=== PATIENT | female | born 1960 | race Caucasian/White ===

== ENCOUNTER 2018-09-11 14:43 | Emergency (ER) | payer OTHER, SELFPAY ==
[2018-09-11 14:43] VITALS: BP 147/92; PULSE 82; RESP 16; TEMP 37.2; O2SAT 99; BMI 34.2
--- NOTE | 2018-09-11 15:28 | PC.NURSE ---
moving all extremities, skin warm dry pink.
--- NOTE | 2018-09-11 15:49 | PC.NURSE ---
Pt states that she has numbness, anterior from mid breast to mid calf. Started in low pelvis and radiated outward. Anterior only. States it feels ''. TOVAR equally well. States that she has had increased unsteady gait but no falls. Denies trauma, back pain or injury. Denies CP/SOB. Of note, pt has 3 year old son with her. He is fussy, runs out of room, grabbing at wires, paper etc. Very playful and engaging child. Mother appears frustrated and requesting that a geriatric social work professor take care of child so she can be seen. Informed that there was no children's program coordinator services in the ED at present. She has a friend coming from [place] but he won't arrive until later tonight.
--- NOTE | 2018-09-11 15:52 | PC.NURSE ---
found pt changing her sons diaper at the waiting area, another pt made a comment, we have a bathroom to do that. 3 year old, running and very active, not listening to his mother, throwing sets of keys, toys, crying. 1 year old grabbing other pt. I have asked mother, if there is anyone to care for her child states, Im the only one he has, my friend is not gonna be here till later patience, pt inquiring about social work faculty member to watch her child , during visits to er
--- NOTE | 2018-09-11 16:13 | DI.CT.S_ITS ---
PROCEDURE: CT THORACIC SPINE WO CON INDICATIONS: midline back pain, neurologic symptoms, no specific trauma TECHNIQUE: Noncontrast 3 mm thick sections acquired through the region of interest in the thoracic spine. Sagittal and coronal reformats were then constructed. For radiation dose reduction, the following was used: automated exposure control. COMPARISON: None. FINDINGS: Image quality: Diagnostic. Bones: The cervicothoracic junction is well-visualized in the alignment through this region is well-maintained. The vertebral body heights are well-maintained throughout the thoracic spine without evidence to suggest an acute compression fracture. No displaced fractures or dislocations are identified. There is mild to moderate dextroconvex curvature of the lower thoracic spine. No spondylolisthesis is identified. Moderate multilevel degenerative changes of the thoracic spine are present demonstrating multilevel disc height loss, anterior disc osteophyte complexes, and facet arthrosis. There also are areas of degenerative change involving multiple costovertebral junctions, best appreciated through the mid thoracic region. No suspicious osseous lesions are identified. Soft tissues: No paravertebral masses or hematomas. Visualized posteromedial lungs appear clear. There appear to be a few calcified gallstones within the gallbladder. Postoperative changes of the stomach are present, likely related to prior gastric bypass surgery. Coronary and aortic atherosclerosis is present. Mild bullous changes along the posterior aspect of the right lower lobe is incidentally noted, which is of doubtful clinical significance. The heart is borderline enlarged. IMPRESSION: 1. No acute fractures of the thoracic spine. 2. Moderate multilevel degenerative changes of the thoracic spine. 3. Cholelithiasis. Dictated by: Isidro Eaton M.D. on 09/11/2018 at 15:49 Approved by: Isidro Eaton M.D. on 09/11/2018 at 15:53
--- NOTE | 2018-09-11 17:13 | ED_ITS ---
HPI - Weakness General Chief complaint: Weakness Stated complaint: NUMB RIBCAGE DOWN TO ABS Time Seen by Provider: 09/11/18 15:30 Source: patient and family Mode of arrival: ambulatory Limitations: no limitations History of Present Illness HPI Narrative: 58-year-old nonsmoker presents with a chief complaint numbness and tingling to her anterior abdomen and anterior thighs for the past 4 days. She denies any pain nor numbness or weakness. She denies any injuries or trauma. She denies any history of the same. She states she recently moved from [place] and has been lifting heavy boxes and no doctor did 2-year-old child but otherwise denies any specific complaints. She has had no trouble controlling her bowel or bladder. She denies any chest pain or shortness of breath. Onset (ago): day(s) Duration: constant Migration: other (She has had some spread of the numbness both above and below where it started in her abdomen) Severity: moderate Quality: tingling and numbness Relieving factors: none Exacerbating factors: none Associated symptoms: denies other symptoms Related Data Home Medications Medication Instructions Recorded Confirmed Doxycycline 1 dose PO DIRECTED 09/11/18 09/11/18 Metoprolol 1 tab PO BID 09/11/18 09/11/18 levothyroxine 400 mcg PO DAILY 09/11/18 09/11/18 Allergies Allergy/AdvReac Type Severity Reaction Status Date / Time No Known Drug Allergies Allergy Verified 09/11/18 16:19 Review of Systems Review of Systems All systems reviewed & are unremarkable except as noted in HPI and below Constitutional Denies chills, Denies fever(s), Denies lethargy and Denies weakness Eyes Denies change in vision, Denies eye discharge, Denies irritation and Denies loss of vision ENT Ears, Nose, Mouth, and Throat: Denies change in voice, Denies neck pain and Denies sore throat Cardiovascular Denies chest pain, Denies irregular heart rhythm, Denies lightheadedness, Denies palpitations, Denies dyspnea, Denies dyspnea on exertion and Denies orthopnea Respiratory Denies cough, Denies dyspnea, Denies dyspnea on exertion and Denies wheezing Gastrointestinal Gastrointestinal: Denies abdominal pain, Denies change in bowel habits, Denies diarrhea, Denies nausea and Denies vomiting Genitourinary Denies hematuria, Denies flank pain, Denies urinary incontinence and Denies urinary urgency Musculoskeletal Denies neck pain Integumentary/Breasts Denies pruritus, Denies erythema, Denies rash and Denies wounds Neurologic Denies confusion, Denies loss of vision, Reports sensory deficit and Denies weakness Psychiatric Denies anxiety, Denies confusion, Denies depression, Denies homicidal ideation and Denies suicidal ideation Endocrine Denies palpitations Hematologic/Lymphatic Denies easy bruising Allergic/Immunologic Denies wheezing [facility] Social History Smoking Status: Never smoker Exam Narrative Exam Narrative: 58-year-old female resting comfortably in no obvious or significant distress Initial Vital Signs Initial Vital Signs: Vital Signs Temperature 98.9 F 09/11/18 14:43 Pulse Rate 82 09/11/18 14:43 Respiratory Rate 16 09/11/18 14:43 Blood Pressure 147/92 H 09/11/18 14:43 Pulse Oximetry 99 09/11/18 14:43 Const General: cooperative and well developed Nutritional Appearance: well nourished Orientation: alert, awake, oriented x3 and not confused HENWI Head: normocephalic and atraumatic Ears: external ears normal and TM's normal bilaterally Nose: external nose normal and No nasal discharge Face and sinus: sinuses nontender, face symmetric, no sinus tenderness and No dry mucous membranes Mouth: oral mucosae normal and moist mucous membranes Teeth and gingiva: dentition normal Throat: tonsils normal and uvula midline Eyes General: appearance normal, both eyes and all related structures Eyelids: eyelids normal Conjunctivae: conjunctivae normal Sclera: sclerae normal Pupils: PERRL EOM: EOM intact bilaterally Chest Chest: normal inspection of the chest Resp Effort & Inspection: normal respiratory effort, able to speak in complete sentences, no respiratory distress and no use of accessory muscles Auscultation: clear to auscultation bilaterally, no rales, no rhonchi and no wheezes GI Inspection: non-distended Palpation: soft, no hepatosplenomegaly, No guarding, No pulsatile mass and No tender Auscultation: normal bowel sounds Back/Spine/Pelvis Back: No CVA tenderness Cervical Spine: cervical ROM normal and No pain with cervical ROM Thoracic/Lumbar Spine: thoracic and lumbar spine normal to inspection Neuro General: alert, awake and oriented x3 Cranial Nerves: CN's II-XI intact bilaterally Cognition: normal cognition Speech: speech normal Gait: normal gait Motor: muscle tone normal throughout Sensory Exam: other (Vague numbness to the anterior abdomen) DTR's: Rt Patellar: 2+ and Lt Patellar: 2+ Other: NIH Stroke Scale 1a. LOC: Patient is alert and keenly responsive (0) 1b. LOC Questions: Patient answers both LOC questions accurately (0) 1c. LOC Commands: Patient performs both tasks correctly (0) 2. Best Gaze: Normal (0) 3. Visual: No visual loss (0) 4. Facial palsy: Normal symmetrical movements (0) 5. Motor arm: No drift (0) 6. Motor leg: No drift (0) 7. Limb ataxia: Absent (0) 8. Sensory: Normal (0) 9. Best language: No aphasia; normal (0) 10. Dysarthria: Normal (0) 11. Extinction and inattention: No abnormality (0) NIHSS: 0 Course Orders Ordered: ED Orders 09/11/18 16:13 CT thoracic spine wo con Stat 09/11/18 18:03 Basic Metabolic Panel Stat Complete Blood Count AUTO DIFF Stat Thyroid Stimulating Hormone Stat Vital Signs - 8 hr 09/11/18 14:43 09/11/18 18:12 Temperature 98.9 F 98.1 F Pulse Rate 82 70 Respiratory Rate 16 14 Blood Pressure 147/92 H Blood Pressure [Right Arm] 140/70 Pulse Oximetry 99 99 MDM - Weakness Medical Records Attestation: I reviewed the patient's medical records. Lab Data Attestation: I reviewed the patient's lab results. Result diagrams: 09/11/18 18:03 09/11/18 18:03 Lab Results 09/11/18 09/11/18 09/11/18 Range/Units 18:03 18:03 18:03 WBC 5.7 (4.5-11.0) X10^3/uL RBC 3.92 L (4.0-5.2) X10^6/uL Hgb 14.2 (12.0-16.0) g/dL Hct 42.0 (36-46) % MCV 107.2 H (80-100) fL MCH 36.2 H (26-34) PG MCHC 33.8 (30-36) % RDW 13.5 (11.6-14.8) % Plt Count 156 (150-400) X10^3/uL Neut % (Auto) 67.1 (50-75) % Lymph % (Auto) 20.9 L (25-40) % Potter % (Auto) 10.2 (3-14) % Eos % (Auto) 0.9 L (2-4) % Baso % (Auto) 0.9 (0-2) % Neut # (Auto) 3800 (5236-8201) /uL Sodium 136 L (137-145) mmol/L Potassium 3.8 (3.4-5.1) mmol/L Chloride 95 L (98-107) mmol/L Carbon Dioxide 29 (22-32) mmol/L BUN 7 (7-17) mg/dL Creatinine 0.50 L (0.52-1.04) mg/dL Estimated GFR > 60.0 (>60) mL/min BUN/Creatinine Ratio 14.0 (6-22) Glucose 114 H (80-110) mg/dL Calcium 9.1 (8.4-10.2) mg/dL TSH 0.62 (0.47-4.68) uIU/mL Imaging Data CT L Spine: Radiologist's impression: [place] [address] CT Scan Report Signed Patient: AMY GIBBONS R#: [id number] : 8Acct:[id number] Age/Sex: 58 / FDate of Service: 09/11/18 Loc: ED Accession Number: [id number] Procedure: CT thoracic spine wo con Ordering Provider: Jesús Fxo D.O. PROCEDURE: CT THORACIC SPINE WO CON INDICATIONS: midline back pain, neurologic symptoms, no specific trauma TECHNIQUE: Noncontrast 3 mm thick sections acquired through the region of interest in the thoracic spine. Sagittal and coronal reformats were then constructed. For radiation dose reduction, the following was used: automated exposure control. COMPARISON: None. FINDINGS: Image quality: Diagnostic. Bones: The cervicothoracic junction is well-visualized in the alignment through this region is well-maintained. The vertebral body heights are well-maintained throughout the thoracic spine without evidence to suggest an acute compression fracture. No displaced fractures or dislocations are identified. There is mild to moderate dextroconvex curvature of the lower thoracic spine. No spondylolisthesis is identified. Moderate multilevel degenerative changes of the thoracic spine are present demonstrating multilevel disc height loss, anterior disc osteophyte complexes, and facet arthrosis. There also are areas of degenerative change involving multiple costovertebral junctions, best appreciated through the mid thoracic region. No suspicious osseous lesions are identified. Soft tissues: No paravertebral masses or hematomas. Visualized posteromedial lungs appear clear. There appear to be a few calcified gallstones within the gallbladder. Postoperative changes of the stomach are present, likely related to prior gastric bypass surgery. Coronary and aortic atherosclerosis is present. Mild bullous changes along the posterior aspect of the right lower lobe is incidentally noted, which is of doubtful clinical significance. The heart is borderline enlarged. IMPRESSION: 1. No acute fractures of the thoracic spine. 2. Moderate multilevel degenerative changes of the thoracic spine. 3. Cholelithiasis. Dictated by: Isidro Eaton M.D. on 09/11/2018 at 15:49 Approved by: Isidro Eaton M.D. on 09/11/2018 at 15:53 MDM Narrative Medical decision making narrative: 58-year-old female presents with description of numbness and tingling of anterior abdomen and anterior thighs which is gradually worsening over the past 4 days. She denies any injury nor any other neurologic symptoms. Initially she denies any weakness of her lower extremities but at the very end mentions that she thinks her knees gave out on her the other day. She has no signs of cauda equina such as bowel or bladder problems. Discharge Plan Departure Patient Disposition: Home Clinical Impression: Paresthesia Discharge Date/Time: 09/11/18 18:13 Interventions: ED Discharge Assessment Last Done: 09/11/18 18:13 Instructions: DI for Numbness/tingling Activity Restrictions/Additional Instructions: *You have been diagnosed with [ paresthesia ] *What to do: *Continue to take medications as directed *Follow up with your primary care provider in 2-3 days, call for an appointment. Let them know you were seen in the Emergency Department and that we ask that you be seen in follow up *Return to ER if you should have any new, worsening or concerning symptoms Prescriptions: No Action levothyroxine 200 mcg Tablet 400 mcg PO DAILY RF: 0 Doxycycline 1 dose PO DIRECTED RF: 0 Metoprolol 1 tab PO BID RF: 0
[2018-09-11 18:08] LABS: Add Manual Diff / Slide Review NO; Basophils Percent Auto 0.9 % (0-2); Eosinophils Percent Auto 0.9 % (2-4); Hemoglobin 14.2 g/dL (12.0-16.0); Lymphocytes Percent Auto 20.9 % (25-40); Mean Corpuscular HGB Conc 33.8 % (30-36); Mean Corpuscular Hemoglobin 36.2 PG (26-34); Mean Corpuscular Volume 107.2 fL (80-100); Monocytes Percent Auto 10.2 % (3-14); Neutrophils Absolute Auto 3800 /uL (3000-5900); Neutrophils Percent Auto 67.1 % (50-75); Platelet Count 156 X10^3/uL (150-400); Red Blood Cell Count 3.92 X10^6/uL (4.0-5.2); Red Cell Distribution Width 13.5 % (11.6-14.8); White Blood Cell Count 5.7 X10^3/uL (4.5-11.0)
[2018-09-11 18:12] VITALS: BP 140/70; PULSE 70; RESP 14; TEMP 36.7; O2SAT 99
[2018-09-11 18:18] LABS: Blood Urea Nitrogen 7 mg/dL (7-17); Calcium 9.1 mg/dL (8.4-10.2); Carbon Dioxide 29 mmol/L (22-32); Chloride 95 mmol/L (98-107); Estimated Glomerular Filt Rate > 60.0 mL/min (>60); Glucose 114 mg/dL (80-110); HEMOLYSIS < 15 (0-50); Potassium 3.8 mmol/L (3.4-5.1); Sodium 136 mmol/L (137-145)
[2018-09-11 19:05] LABS: Thyroid Stimulating Hormone 0.62 uIU/mL (0.47-4.68)
== END 2018-09-11 18:13 | disposition home or self-care (01) ==
PROVIDERS: Emergency Provider Emergency Medicine
DX: R20.2 Paresthesia of skin (principal)
CPT/HCPCS: 36415; 72128; 80048; 84443; 85025; 99282; 99284

== ENCOUNTER 2018-09-12 05:56 | Emergency (ER) | payer OTHER, SELFPAY ==
--- NOTE | 2018-09-12 06:44 | DI.MRI.S_ITS ---
PROCEDURE: MR LUMBAR SPINE WO/W CON INDICATIONS: numbness of abd/legs worsening TECHNIQUE: Noncontrast sagittal T1 spin echo and T2 fast spin echo, sagittal STIR, axial T1 and T2 fast spin echo through the lumbar spine. In cases with scoliosis, additional coronal T2 fast spin echo may be performed. After the administration of contrast, sagittal and axial T1 spin echo with fat saturation through the lumbar spine. COMPARISON: [facility], MR, MR THORACIC SPINE WO/W CON, 09/12/2018, 7:12. [facility], CT, CT THORACIC SPINE WO CON, 09/11/2018, 16:12. FINDINGS: Image quality: Excellent. Alignment and curvature: Mild to moderate levoconvex lumbar scoliosis is seen. Marrow: Marrow is of normal overall signal. No acute vertebral body compression fractures. No suspicious marrow enhancement. A focus of nonenhancing sclerosis can be seen involving the medial left iliac bone, as on series 7 image 32. Spinal cord: Conus medullaris terminates at the L1 level. Visualized spinal cord demonstrates normal signal, without suspicious enhancement. Paraspinous soft tissues: No paravertebral masses or abnormal enhancement. T12-L1: Normal appearance. L1-L2: The disc height is well-preserved. Loss of disc signal is seen at this level. Mild generalized disc bulge is seen. No significant neural foraminal or central canal narrowing can be seen. L2-L3: The disc height is well-preserved. Loss of disc signal is seen at this level. Mild to moderate disc bulge is seen. Prominent bridging endplate osteophytes are seen on the right side, as on series 4 image 4. Mild bilateral neural foraminal narrowing is seen. Mild central canal narrowing is seen. L3-L4: The disc height is well-preserved. Loss of disc signal is seen at this level. Mild to moderate disc bulge is seen at this level. Mild facet joint hypertrophy is seen. There is minimal right-sided and mild left-sided neural foraminal narrowing seen. Mild central canal narrowing is seen. L4-L5: The disc height is well-preserved. Loss of disc signal is seen at this level. Moderate disc bulge is seen, which is eccentric to the right. Moderate bilateral neural foraminal narrowing is seen. Mild central canal narrowing is seen. L5-S1: The disc height is well-preserved. Loss of disc signal is seen at this level. Mild generalized disc bulge is seen. Mild facet joint hypertrophy is seen. There is mild left-sided and no significant right-sided neural foraminal narrowing seen. No significant central canal narrowing is seen. IMPRESSION: No acute abnormality is seen. No abnormal enhancement. Scattered degenerative changes are seen, yet without an imaging explanation for the patient's acute presenting history. Dictated by: Jorje Nance M.D. on 09/12/2018 at 8:17 Approved by: Jorje Nance M.D. on 09/12/2018 at 8:24
--- NOTE | 2018-09-12 06:44 | DI.MRI.S_ITS ---
PROCEDURE: MR THORACIC SPINE WO/W CON INDICATIONS: numbness of abdomen/lower ext TECHNIQUE: Noncontrast sagittal T1 spin echo and T2 fast spin echo, sagittal STIR, axial T1 and T2 fast spin echo through the thoracic spine. After the administration of contrast, axial and sagittal T1 spin echo with fat saturation through the thoracic spine. COMPARISON: [facility], CT, CT THORACIC SPINE WO CON, 09/11/2018, 16:12. [facility], MR, MR LUMBAR SPINE WO/W CON, 09/12/2018, 7:29. FINDINGS: Image quality: Excellent. Alignment and curvature: S-shaped scoliotic curvature is seen. Marrow: Marrow is of normal overall signal. No acute vertebral body compression fractures. Spinal cord: Visualized spinal cord is of normal signal and size, without abnormal enhancement. Paraspinous soft tissues: No paravertebral masses or abnormal enhancement. Miscellaneous: Scattered degenerative changes are seen, with mild areas of disc bulge with endplate irregularity. A few areas of posterior element hypertrophy can be seen. No significant neural foraminal or central canal narrowing can be seen throughout. IMPRESSION: No acute abnormality is seen. No significant neural foraminal or central canal narrowing can be seen. No abnormal enhancement is seen. S-shaped scoliotic curvature is seen. Dictated by: Jorje Nance M.D. on 09/12/2018 at 8:09 Approved by: Jorje Nance M.D. on 09/12/2018 at 8:15
[2018-09-12 06:45] VITALS: BP 154/86; PULSE 66; RESP 16; TEMP 36.3; O2SAT 100; BMI 34.2
--- NOTE | 2018-09-12 07:10 | ED.EXTPRO ---
HPI - Extremity Problem General Chief complaint: Extremity Problem,Nontraumatic Stated complaint: feels numbness from waist down x7 days Time Seen by Provider: 09/12/18 06:44 Source: patient Mode of arrival: ambulatory Limitations: no limitations History of Present Illness HPI Narrative: 58F returns to the emergency department with a chief complaint of ongoing numbness and tingling of her anterior abdomen and thighs. She did have 1 episode of her knees giving out on her a few days ago. She denies any focal neurologic findings. She denies any blurred vision or trouble with speech. She denies any injury or trauma. She denies any fever or chills. Her symptoms started 5 days ago and are slowly worsening. She denies any new medications or diet. She has been under significant stress and recently moved up here from [place], [place] Relieving factors: nothing Related Data Home Medications Medication Instructions Recorded Confirmed Doxycycline 1 dose PO DIRECTED 09/11/18 09/11/18 Metoprolol 1 tab PO BID 09/11/18 09/11/18 levothyroxine 400 mcg PO DAILY 09/11/18 09/11/18 Allergies Allergy/AdvReac Type Severity Reaction Status Date / Time No Known Drug Allergies Allergy Verified 09/11/18 16:19 Review of Systems Review of Systems All systems reviewed & are unremarkable except as noted in HPI and below Constitutional Denies chills, Denies fever(s), Denies lethargy and Denies weakness Eyes Denies change in vision, Denies eye discharge, Denies irritation and Denies loss of vision ENT Ears, Nose, Mouth, and Throat: Denies change in voice, Denies neck pain and Denies sore throat Cardiovascular Denies chest pain, Denies irregular heart rhythm, Denies lightheadedness, Denies palpitations, Denies dyspnea, Denies dyspnea on exertion and Denies orthopnea Respiratory Denies cough, Denies dyspnea, Denies dyspnea on exertion and Denies wheezing Gastrointestinal Gastrointestinal: Denies abdominal pain, Denies change in bowel habits, Denies diarrhea, Denies nausea and Denies vomiting Genitourinary Denies hematuria, Denies flank pain, Denies urinary incontinence and Denies urinary urgency Musculoskeletal Denies neck pain and Reports tingling Integumentary/Breasts Denies pruritus, Denies erythema, Denies rash and Denies wounds Neurologic Denies confusion, Denies loss of vision, Reports sensory deficit, Reports tingling and Denies weakness Psychiatric Denies anxiety, Denies confusion, Denies depression, Denies homicidal ideation and Denies suicidal ideation Endocrine Denies palpitations Hematologic/Lymphatic Denies easy bruising Allergic/Immunologic Denies wheezing [facility] Social History Smoking Status: Never smoker Exam Narrative Exam Narrative: GENERAL: This is a well-nourished, well-developed patient, in mild distress. HEAD: Atraumatic. Normocephalic. No temporal or scalp tenderness. EYES: Pupils equal round and reactive. Extraocular motions intact. No scleral icterus. No injection or drainage. ENT: Nose without bleeding, purulent drainage or septal hematoma. Throat without erythema, tonsillar hypertrophy or exudate. Uvula midline. Airway patent. NECK: Trachea midline. No JVD or lymphadenopathy. Supple, nontender, no meningeal signs. CARDIOVASCULAR: Regular rate and rhythm without murmurs, gallops, or rubs. RESPIRATORY: Clear to auscultation. Breath sounds equal bilaterally. No wheezes, rales, or rhonchi. GASTROINTESTINAL: Abdomen soft, non-tender, nondistended. No hepato-splenomegaly, or palpable masses. No guarding. EXTREMITIES: No clubbing, cyanosis, or edema. No joint tenderness, effusion, or edema noted. BACK: Nontender without deformity or crepitance. No flank tenderness. NEURO: patient has decreased sensation along anterior abdomen down into her groin and anterior thighs extending laterally to the lateral third on each side. No weakness. SKIN: No rash or erythema. Initial Vital Signs Initial Vital Signs: Vital Signs Temperature 97.4 F L 09/12/18 06:45 Pulse Rate 66 09/12/18 06:45 Respiratory Rate 16 09/12/18 06:45 Blood Pressure 154/86 H 09/12/18 06:45 Pulse Oximetry 100 09/12/18 06:45 Const General: cooperative and well developed Nutritional Appearance: well nourished Orientation: alert, awake, oriented x3 and not confused [facility] Head: normocephalic and atraumatic Ears: external ears normal and TM's normal bilaterally Nose: external nose normal and No nasal discharge Face and sinus: sinuses nontender, face symmetric, no sinus tenderness and No dry mucous membranes Mouth: oral mucosae normal and moist mucous membranes Teeth and gingiva: dentition normal Throat: tonsils normal and uvula midline Eyes General: appearance normal, both eyes and all related structures Eyelids: eyelids normal Conjunctivae: conjunctivae normal Sclera: sclerae normal Pupils: PERRL EOM: EOM intact bilaterally Chest Chest: normal inspection of the chest Cardio Rate: regular rate Rhythm: regular rhythm Heart Sounds: no click, no gallops, no murmurs and no rubs Pulses: normal peripheral pulses Back/Spine/Pelvis Back: No CVA tenderness Cervical Spine: cervical ROM normal and No pain with cervical ROM Thoracic/Lumbar Spine: thoracic and lumbar spine normal to inspection Skin General: no rashes or lesions noted, No jaundice and No petechiae Neuro Gait: normal gait Motor: muscle tone normal throughout Sensory Exam: sensory deficits noted Extrem General: full ROM, no clubbing, cyanosis or edema, no pedal edema and no calf tenderness Course Orders Ordered: Discontinued Medications Lorazepam (Ativan) 0.5 mg IV NOW ONE Stop: 09/12/18 06:55 Last Admin: 09/12/18 07:21 Dose: 0.5 mg Vital Signs - 8 hr 09/12/18 10:29 Pulse Rate 64 Respiratory Rate 18 Blood Pressure 152/97 H Pulse Oximetry 100 MDM - Extremity (Nontraumatic) Imaging Data Thoracic MRI: Radiologist's impression: Chart Viewer Diagnostics DATE TYPE STATUS AUTHOR Hx 09/12/18 06:44 Jorje Nance 09/12/18 06:44 Jorje Nance 09/11/18 16:13 Isidro Eaton Barbara V 58, F0 1960 [facility] ER, ED - Main ED: R12 172.72cm 102.058kg BSA: 2.15m? BMI: 34.2kg/m? Extremity Problem,Nontraumatic Search Chart NF - Not included in interaction checking No Known Drug Allergies ONSET Today 10:[address] [address] Magnetic Resonance Report Signed Patient: LANDONROMINA THORNEARA R#: [id number] : 8Acct:[id number] Age/Sex: 58 / FDate of Service: 09/12/18 Loc: ED Accession Number: [id number] Procedure: MR thoracic spine wo/w con Ordering Provider: Mary Burger D.O. PROCEDURE: MR THORACIC SPINE WO/W CON INDICATIONS: numbness of abdomen/lower ext TECHNIQUE: Noncontrast sagittal T1 spin echo and T2 fast spin echo, sagittal STIR, axial T1 and T2 fast spin echo through the thoracic spine. After the administration of contrast, axial and sagittal T1 spin echo with fat saturation through the thoracic spine. COMPARISON: [facility], CT, CT THORACIC SPINE WO CON, 09/11/2018, 16:12. [facility], MR, MR LUMBAR SPINE WO/W CON, 09/12/2018, 7:29. FINDINGS: Image quality: Excellent. Alignment and curvature: S-shaped scoliotic curvature is seen. Marrow: Marrow is of normal overall signal. No acute vertebral body compression fractures. Spinal cord: Visualized spinal cord is of normal signal and size, without abnormal enhancement. Paraspinous soft tissues: No paravertebral masses or abnormal enhancement. Miscellaneous: Scattered degenerative changes are seen, with mild areas of disc bulge with endplate irregularity. A few areas of posterior element hypertrophy can be seen. No significant neural foraminal or central canal narrowing can be seen throughout. IMPRESSION: No acute abnormality is seen. No significant neural foraminal or central canal narrowing can be seen. No abnormal enhancement is seen. S-shaped scoliotic curvature is seen. Dictated by: Jorje Nance M.D. on 09/12/2018 at 8:09 Approved by: Jorje Nance M.D. on 09/12/2018 at 8:15 [place] [address] Magnetic Resonance Report Signed Patient: AMY GIBBONS R#: [id number] : 8Acct:[id number] Age/Sex: 58 / FDate of Service: 09/12/18 Loc: ED Accession Number: [id number] Procedure: MR lumbar spine wo/w con Ordering Provider: Mary Burger D.O. PROCEDURE: MR LUMBAR SPINE WO/W CON INDICATIONS: numbness of abd/legs worsening TECHNIQUE: Noncontrast sagittal T1 spin echo and T2 fast spin echo, sagittal STIR, axial T1 and T2 fast spin echo through the lumbar spine. In cases with scoliosis, additional coronal T2 fast spin echo may be performed. After the administration of contrast, sagittal and axial T1 spin echo with fat saturation through the lumbar spine. COMPARISON: [facility], MR, MR THORACIC SPINE WO/W CON, 09/12/2018, 7:12. [facility], CT, CT THORACIC SPINE WO CON, 09/11/2018, 16:12. FINDINGS: Image quality: Excellent. Alignment and curvature: Mild to moderate levoconvex lumbar scoliosis is seen. Marrow: Marrow is of normal overall signal. No acute vertebral body compression fractures. No suspicious marrow enhancement. A focus of nonenhancing sclerosis can be seen involving the medial left iliac bone, as on series 7 image 32. Spinal cord: Conus medullaris terminates at the L1 level. Visualized spinal cord demonstrates normal signal, without suspicious enhancement. Paraspinous soft tissues: No paravertebral masses or abnormal enhancement. T12-L1: Normal appearance. L1-L2: The disc height is well-preserved. Loss of disc signal is seen at this level. Mild generalized disc bulge is seen. No significant neural foraminal or central canal narrowing can be seen. L2-L3: The disc height is well-preserved. Loss of disc signal is seen at this level. Mild to moderate disc bulge is seen. Prominent bridging endplate osteophytes are seen on the right side, as on series 4 image 4. Mild bilateral neural foraminal narrowing is seen. Mild central canal narrowing is seen. L3-L4: The disc height is well-preserved. Loss of disc signal is seen at this level. Mild to moderate disc bulge is seen at this level. Mild facet joint hypertrophy is seen. There is minimal right-sided and mild left-sided neural foraminal narrowing seen. Mild central canal narrowing is seen. L4-L5: The disc height is well-preserved. Loss of disc signal is seen at this level. Moderate disc bulge is seen, which is eccentric to the right. Moderate bilateral neural foraminal narrowing is seen. Mild central canal narrowing is seen. L5-S1: The disc height is well-preserved. Loss of disc signal is seen at this level. Mild generalized disc bulge is seen. Mild facet joint hypertrophy is seen. There is mild left-sided and no significant right-sided neural foraminal narrowing seen. No significant central canal narrowing is seen. IMPRESSION: No acute abnormality is seen. No abnormal enhancement. Scattered degenerative changes are seen, yet without an imaging explanation for the patient's acute presenting history. Dictated by: Jorje Nance M.D. on 09/12/2018 at 8:17 Approved by: Jorje Nance M.D. on 09/12/2018 at 8:24 Discharge Plan Departure Patient Disposition: Home Clinical Impression: Paresthesia Discharge Date/Time: 09/12/18 10:29 Interventions: ED Discharge Assessment Last Done: 09/12/18 10:29 Instructions: DI for Numbness/tingling Activity Restrictions/Additional Instructions: *You have been diagnosed with [ acute paresthesias ] *What to do: *Continue to take medications as directed *Follow up with your primary care provider in 2-3 days, call for an appointment. Let them know you were seen in the Emergency Department and that we ask that you be seen in follow up *Return to ER if you should have any new, worsening or concerning symptoms Prescriptions: No Action levothyroxine 200 mcg Tablet 400 mcg PO DAILY RF: 0 Doxycycline 1 dose PO DIRECTED RF: 0 Metoprolol 1 tab PO BID RF: 0
[2018-09-12] MEDS: LORazepam 2 MG/ML SYRINGE 0.5 MG IV (07:21)
--- NOTE | 2018-09-12 08:49 | PC.NURSE ---
pt has been complaining of rib numbness down to her calves. today is here for mri
[2018-09-12 09:26] VITALS: BP 142/76; PULSE 62; RESP 16; O2SAT 100
--- NOTE | 2018-09-12 10:00 | ED_ITS ---
HPI - Extremity Problem General Chief complaint: Extremity Problem,Nontraumatic Stated complaint: feels numbness from waist down x7 days Time Seen by Provider: 09/12/18 06:44 Source: patient Mode of arrival: ambulatory Limitations: no limitations History of Present Illness HPI Narrative: 58F returns to the emergency department with a chief complaint of ongoing numbness and tingling of her anterior abdomen and thighs. She did have 1 episode of her knees giving out on her a few days ago. She denies any focal neurologic findings. She denies any blurred vision or trouble with speech. She denies any injury or trauma. She denies any fever or chills. Her symptoms started 5 days ago and are slowly worsening. She denies any new medications or diet. She has been under significant stress and recently moved up here from [place], [place] Relieving factors: nothing Related Data Home Medications Medication Instructions Recorded Confirmed Doxycycline 1 dose PO DIRECTED 09/11/18 09/11/18 Metoprolol 1 tab PO BID 09/11/18 09/11/18 levothyroxine 400 mcg PO DAILY 09/11/18 09/11/18 Allergies Allergy/AdvReac Type Severity Reaction Status Date / Time No Known Drug Allergies Allergy Verified 09/11/18 16:19 Review of Systems Review of Systems All systems reviewed & are unremarkable except as noted in HPI and below Constitutional Denies chills, Denies fever(s), Denies lethargy and Denies weakness Eyes Denies change in vision, Denies eye discharge, Denies irritation and Denies loss of vision ENT Ears, Nose, Mouth, and Throat: Denies change in voice, Denies neck pain and Denies sore throat Cardiovascular Denies chest pain, Denies irregular heart rhythm, Denies lightheadedness, Denies palpitations, Denies dyspnea, Denies dyspnea on exertion and Denies orthopnea Respiratory Denies cough, Denies dyspnea, Denies dyspnea on exertion and Denies wheezing Gastrointestinal Gastrointestinal: Denies abdominal pain, Denies change in bowel habits, Denies diarrhea, Denies nausea and Denies vomiting Genitourinary Denies hematuria, Denies flank pain, Denies urinary incontinence and Denies urinary urgency Musculoskeletal Denies neck pain and Reports tingling Integumentary/Breasts Denies pruritus, Denies erythema, Denies rash and Denies wounds Neurologic Denies confusion, Denies loss of vision, Reports sensory deficit, Reports tingling and Denies weakness Psychiatric Denies anxiety, Denies confusion, Denies depression, Denies homicidal ideation and Denies suicidal ideation Endocrine Denies palpitations Hematologic/Lymphatic Denies easy bruising Allergic/Immunologic Denies wheezing [facility] Social History Smoking Status: Never smoker Exam Narrative Exam Narrative: GENERAL: This is a well-nourished, well-developed patient, in mild distress. HEAD: Atraumatic. Normocephalic. No temporal or scalp tenderness. EYES: Pupils equal round and reactive. Extraocular motions intact. No scleral icterus. No injection or drainage. ENT: Nose without bleeding, purulent drainage or septal hematoma. Throat without erythema, tonsillar hypertrophy or exudate. Uvula midline. Airway patent. NECK: Trachea midline. No JVD or lymphadenopathy. Supple, nontender, no meningeal signs. CARDIOVASCULAR: Regular rate and rhythm without murmurs, gallops, or rubs. RESPIRATORY: Clear to auscultation. Breath sounds equal bilaterally. No wheezes , rales, or rhonchi. GASTROINTESTINAL: Abdomen soft, non-tender, nondistended. No hepato-splenomegaly , or palpable masses. No guarding. EXTREMITIES: No clubbing, cyanosis, or edema. No joint tenderness, effusion, or edema noted. BACK: Nontender without deformity or crepitance. No flank tenderness. NEURO: patient has decreased sensation along anterior abdomen down into her groin and anterior thighs extending laterally to the lateral third on each side. No weakness. SKIN: No rash or erythema. Initial Vital Signs Initial Vital Signs: Vital Signs Temperature 97.4 F L 09/12/18 06:45 Pulse Rate 66 09/12/18 06:45 Respiratory Rate 16 09/12/18 06:45 Blood Pressure 154/86 H 09/12/18 06:45 Pulse Oximetry 100 09/12/18 06:45 Const General: cooperative and well developed Nutritional Appearance: well nourished Orientation: alert, awake, oriented x3 and not confused [facility] Head: normocephalic and atraumatic Ears: external ears normal and TM's normal bilaterally Nose: external nose normal and No nasal discharge Face and sinus: sinuses nontender, face symmetric, no sinus tenderness and No dry mucous membranes Mouth: oral mucosae normal and moist mucous membranes Teeth and gingiva: dentition normal Throat: tonsils normal and uvula midline Eyes General: appearance normal, both eyes and all related structures Eyelids: eyelids normal Conjunctivae: conjunctivae normal Sclera: sclerae normal Pupils: PERRL EOM: EOM intact bilaterally Chest Chest: normal inspection of the chest Cardio Rate: regular rate Rhythm: regular rhythm Heart Sounds: no click, no gallops, no murmurs and no rubs Pulses: normal peripheral pulses Back/Spine/Pelvis Back: No CVA tenderness Cervical Spine: cervical ROM normal and No pain with cervical ROM Thoracic/Lumbar Spine: thoracic and lumbar spine normal to inspection Skin General: no rashes or lesions noted, No jaundice and No petechiae Neuro Gait: normal gait Motor: muscle tone normal throughout Sensory Exam: sensory deficits noted Extrem General: full ROM, no clubbing, cyanosis or edema, no pedal edema and no calf tenderness Course Orders Ordered: Discontinued Medications Lorazepam (Ativan) 0.5 mg IV NOW ONE Stop: 09/12/18 06:55 Last Admin: 09/12/18 07:21 Dose: 0.5 mg Vital Signs - 8 hr 09/12/18 10:29 Pulse Rate 64 Respiratory Rate 18 Blood Pressure 152/97 H Pulse Oximetry 100 MDM - Extremity (Nontraumatic) Imaging Data Thoracic MRI: Radiologist's impression: Chart Viewer Diagnostics DATE TYPE STATUS AUTHOR Hx 09/12/18 06:44 Jorje Nance 09/12/18 06:44 Jorje Nance 09/11/18 16:13 Isidro Eaton Barbara V 58, F0 1960 [facility] ER, ED - Main ED: R12 172.72cm 102.058kg BSA: 2.15m? BMI: 34.2kg/m? Extremity Problem,Nontraumatic Search Chart NF - Not included in interaction checking No Known Drug Allergies ONSET Today 10:[address] [address] Magnetic Resonance Report Signed Patient: LANDONROMINA THORNEARA R#: [id number] : 8Acct:[id number] Age/Sex: 58 / FDate of Service: 09/12/18 Loc: ED Accession Number: [id number] Procedure: MR thoracic spine wo/w con Ordering Provider: Mary Burger D.O. PROCEDURE: MR THORACIC SPINE WO/W CON INDICATIONS: numbness of abdomen/lower ext TECHNIQUE: Noncontrast sagittal T1 spin echo and T2 fast spin echo, sagittal STIR, axial T1 and T2 fast spin echo through the thoracic spine. After the administration of contrast , axial and sagittal T1 spin echo with fat saturation through the thoracic spine. COMPARISON: [facility], CT, CT THORACIC SPINE WO CON, 09/11/2018, 16:12. [facility], MR, MR LUMBAR SPINE WO/W CON, 09/12/2018, 7:29. FINDINGS: Image quality: Excellent. Alignment and curvature: S-shaped scoliotic curvature is seen. Marrow: Marrow is of normal overall signal. No acute vertebral body compression fractures. Spinal cord: Visualized spinal cord is of normal signal and size, without abnormal enhancement. Paraspinous soft tissues: No paravertebral masses or abnormal enhancement. Miscellaneous: Scattered degenerative changes are seen, with mild areas of disc bulge with endplate irregularity. A few areas of posterior element hypertrophy can be seen. No significant neural foraminal or central canal narrowing can be seen throughout. IMPRESSION: No acute abnormality is seen. No significant neural foraminal or central canal narrowing can be seen. No abnormal enhancement is seen. S-shaped scoliotic curvature is seen. Dictated by: Jorje Nance M.D. on 09/12/2018 at 8:09 Approved by: Jorje Nance M.D. on 09/12/2018 at 8:15 [place] [address] Magnetic Resonance Report Signed Patient: AMY GIBBONS R#: [id number] : 8Acct:[id number] Age/Sex: 58 / FDate of Service: 09/12/18 Loc: ED Accession Number: [id number] Procedure: MR lumbar spine wo/w con Ordering Provider: Mary Burger D.O. PROCEDURE: MR LUMBAR SPINE WO/W CON INDICATIONS: numbness of abd/legs worsening TECHNIQUE: Noncontrast sagittal T1 spin echo and T2 fast spin echo, sagittal STIR, axial T1 and T2 fast spin echo through the lumbar spine. In cases with scoliosis, additional coronal T2 fast spin echo may be performed. After the administration of contrast, sagittal and axial T1 spin echo with fat saturation through the lumbar spine. COMPARISON: [facility], MR, MR THORACIC SPINE WO/W CON, 09/12/2018, 7:12. [facility], CT, CT THORACIC SPINE WO CON, 09/11/2018, 16:12. FINDINGS: Image quality: Excellent. Alignment and curvature: Mild to moderate levoconvex lumbar scoliosis is seen. Marrow: Marrow is of normal overall signal. No acute vertebral body compression fractures. No suspicious marrow enhancement. A focus of nonenhancing sclerosis can be seen involving the medial left iliac bone, as on series 7 image 32. Spinal cord: Conus medullaris terminates at the L1 level. Visualized spinal cord demonstrates normal signal, without suspicious enhancement. Paraspinous soft tissues: No paravertebral masses or abnormal enhancement. T12-L1: Normal appearance. L1-L2: The disc height is well-preserved. Loss of disc signal is seen at this level. Mild generalized disc bulge is seen. No significant neural foraminal or central canal narrowing can be seen. L2-L3: The disc height is well-preserved. Loss of disc signal is seen at this level. Mild to moderate disc bulge is seen. Prominent bridging endplate osteophytes are seen on the right side, as on series 4 image 4. Mild bilateral neural foraminal narrowing is seen. Mild central canal narrowing is seen. L3-L4: The disc height is well-preserved. Loss of disc signal is seen at this level. Mild to moderate disc bulge is seen at this level. Mild facet joint hypertrophy is seen. There is minimal right-sided and mild left-sided neural foraminal narrowing seen. Mild central canal narrowing is seen. L4-L5: The disc height is well-preserved. Loss of disc signal is seen at this level. Moderate disc bulge is seen, which is eccentric to the right. Moderate bilateral neural foraminal narrowing is seen. Mild central canal narrowing is seen. L5-S1: The disc height is well-preserved. Loss of disc signal is seen at this level. Mild generalized disc bulge is seen. Mild facet joint hypertrophy is seen. There is mild left-sided and no significant right-sided neural foraminal narrowing seen. No significant central canal narrowing is seen. IMPRESSION: No acute abnormality is seen. No abnormal enhancement. Scattered degenerative changes are seen, yet without an imaging explanation for the patient's acute presenting history. Dictated by: Jorje Nance M.D. on 09/12/2018 at 8:17 Approved by: Jorje Nance M.D. on 09/12/2018 at 8:24 Discharge Plan Departure Patient Disposition: Home Clinical Impression: Paresthesia Discharge Date/Time: 09/12/18 10:29 Interventions: ED Discharge Assessment Last Done: 09/12/18 10:29 Instructions: DI for Numbness/tingling Activity Restrictions/Additional Instructions: *You have been diagnosed with [ acute paresthesias ] *What to do: *Continue to take medications as directed *Follow up with your primary care provider in 2-3 days, call for an appointment. Let them know you were seen in the Emergency Department and that we ask that you be seen in follow up *Return to ER if you should have any new, worsening or concerning symptoms Prescriptions: No Action levothyroxine 200 mcg Tablet 400 mcg PO DAILY RF: 0 Doxycycline 1 dose PO DIRECTED RF: 0 Metoprolol 1 tab PO BID RF: 0
[2018-09-12 10:29] VITALS: BP 152/97; PULSE 64; RESP 18; O2SAT 100
--- NOTE | 2018-09-12 11:01 | PC.NURSE ---
mri inserted iv
== END 2018-09-12 10:29 | disposition home or self-care (01) ==
PROVIDERS: Emergency Provider Emergency Medicine
DX: R20.2 Paresthesia of skin (principal)
CPT/HCPCS: 72157; 72158; 96374; 99282; 99285; A9579; J2060

== ENCOUNTER 2019-01-12 11:47 | Emergency (ER) | payer BC, SELFPAY ==
[2019-01-12] VITALS (17 sets, daily range): BP systolic 104–141; BP diastolic 59–92; PULSE 64–152; RESP 12–160; TEMP 36.6; O2SAT 95–100
--- NOTE | 2019-01-12 12:26 | DI.RAD.S_ITS ---
PROCEDURE: XR CHEST 1V INDICATIONS: short of breath TECHNIQUE: One view of the chest was acquired. COMPARISON: None. FINDINGS: Surgical changes and devices: None. Lungs and pleura: Lungs are clear. No pleural effusions or pneumothorax. Mediastinum: Mediastinal contours appear normal. Heart size is normal. Bones and chest wall: No suspicious bony lesions. Overlying soft tissues appear unremarkable. IMPRESSION: No acute cardiopulmonary pathology. Dictated by: Tariq Polo M.D. on 01/12/2019 at 12:45 Approved by: Tariq Polo M.D. on 01/12/2019 at 12:47
[2019-01-12] MEDS: dilTIAZem 5 MG/ML SDV 20 MG IV (12:34)
[2019-01-12] MEDS: SODIUM CHLORIDE 0.9% 1,000 ML 150 ML IV (12:35)
--- NOTE | 2019-01-12 12:39 | ED.ARRPALP ---
HPI - Arrhythmia/Palpitations General Chief Complaint: Arrhythmia/Palpitations Stated Complaint: states AFIB since this morning,cant catch breath Time Seen by Provider: 01/12/19 12:12 Source: patient Mode of arrival: ambulatory Limitations: no limitations History of Present Illness HPI narrative: Patient is a 58-year-old female who presents with atrial fibrillation with history of atrial fibrillation. She states she got short of breath this morning which is typically what happens, she is on Eliquis. Heart rate currently 160-180. She also takes metoprolol. She has no chest pain dizziness. MD complaint: rapid heart beat and heart racing Duration: constant Severity: similar to previous episodes Related Data Home Medications Medication Instructions Recorded Confirmed Doxycycline 1 dose PO DIRECTED 09/11/18 09/11/18 levothyroxine 400 mcg PO DAILY 09/11/18 09/11/18 apixaban [Eliquis] 5 mg PO BID 01/12/19 01/12/19 lisinopril 2.5 mg PO DAILY 01/12/19 01/12/19 metoprolol succinate 25 mg PO DAILY 01/12/19 01/12/19 potassium chloride 20 meq PO DAILY 01/12/19 01/12/19 spironolactone 25 mg PO DAILY 01/12/19 01/12/19 Allergies Allergy/AdvReac Type Severity Reaction Status Date / Time No Known Drug Allergies Allergy Verified 09/11/18 16:19 Review of Systems Review of Systems GENERAL: Denies chills, fatigue, malaise, fever, sweats, travel HEENT: Denies sinus pain, ear pain, sore throat, difficulty swallowing, neck pain RESPIRATORY: Denies dyspnea, cough, wheezing, hemoptysis, sputum. CARDIOVASCULAR: See the HPI GASTROINTESTINAL: Denies nausea, vomiting, abdominal pain, diarrhea, constipation, melena. : Denies dysuria, frequency, incontinence, hematuria, urinary retention, flank pain. MUSCULOSKELETAL: Denies weakness, joint pain, or bony pain SKIN: No rash, no erythema, no pruritus NEUROLOGIC: Denies weakness, dizziness, headache, numbness, change in speech, confusion PSYCHIATRIC: No concerning psychosocial issues. 12 point review of systems is negative except for those stated above and HPI [facility] Medical History Atrial fibrillation (Acute) Hypothyroid (Acute) Social History Smoking Status: Never smoker Social History Smoking Status: Never smoker Exam Initial Vital Signs Initial Vital Signs: Vital Signs Temperature 97.9 F 01/12/19 11:55 Pulse Rate 120 H 01/12/19 11:55 Respiratory Rate 14 01/12/19 11:55 Blood Pressure 136/78 01/12/19 11:55 Pulse Oximetry 100 01/12/19 11:55 GENERAL: Alert well-appearing female no acute distress HEENT: Head atraumatic,EOMI, pupils reactive, no JVD CARDIOVASCULAR: Irregularly irregular tachycardic RESPIRATORY: Breath sounds equal bilaterally, no wheezes rales or rhonchi. ABDOMEN: Soft, nontender. Normoactive bowel sounds all 4 quadrants. No guarding or rebound. EXTREMITIES: Normal range of motion, no clubbing or edema. Neurovascularly intact NEUROLOGICAL: Alert and oriented x4.Normal gait and speech. SKIN: Warm, dry, no laceration, no petechiae, no rashes or lesions. Procedures Cardioversion Indication: ATRIAL FIBRILLATION WITH RVR Cardiac rhythm prior to cardioversion: ATRIAL FIBRILLATION WITH RVR Stability: Stable ASA Class: I Mallampati Airway Classification: Class I Time of Last PO Intake: 18:28 Preparation: inspector process applied, pulse oximeter, capnometry used, supplemental O2 applied and suction/airway equipment at bedside IV Etomidate Dose (mgs): 9 Number of attempts (shocks): 1 Joules used: 150 ED Sedation Level: Moderate (Concious) Patient tolerated procedure sedation: Well Complications sedation: none Procedural Sedation Patient Age: Patient is 5yrs or older Indication: other (CARDIOVERSION) ASA Class: I Mallampati Airway Classification: Class I Time of Last PO Intake: 18:30 Preparation: inspector process applied, pulse oximeter, capnometry used, supplemental O2 applied, suction/airway equipment at bedside and IV secured IV Etomidate dose (mg): 9 Intraservice time (min): 11 ED Sedation Level: Moderate (Concious) Patient Tolerated Procedure: Well Complications: none Course Orders Ordered: ED Orders 01/12/19 12:21 EKG-12 Lead Stat 01/12/19 12:26 XR chest 1V Stat 01/12/19 12:37 Complete Blood Count AUTO DIFF Stat Comprehensive Metabolic Panel Stat Magnesium Stat Partial Thromboplastin Time Stat Prothrombin Time INR Stat Thyroid Stimulating Hormone Stat Troponin & CK Cardiac Panel Stat Urine Culture Stat Urine Microscopic Stat 01/12/19 14:01 EKG-12 Lead Routine Discontinued Medications Diltiazem HCl (Cardizem) 20 mg IV NOW ONE Stop: 01/12/19 12:26 Last Admin: 01/12/19 12:34 Dose: 20 mg Etomidate (Amidate) 9 mg IV NOW ONE Stop: 01/12/19 13:27 Last Admin: 01/12/19 13:55 Dose: 9 mg Sodium Chloride (Normal Saline 0.9%) 1,000 mls @ 150 mls/hr IV CONT MAURICE Last Infusion: 01/12/19 14:35 Dose: 0 mls/hr Admin: 01/12/19 12:35 Dose: 150 mls/hr Vital Signs - 8 hr 01/12/19 11:55 01/12/19 12:30 01/12/19 12:34 Temperature 97.9 F Pulse Rate 120 H 133 H Respiratory Rate 14 160 H Blood Pressure 136/78 141/92 H Blood Pressure [Right Arm] 141/92 H Pulse Oximetry 100 95 01/12/19 12:38 01/12/19 13:06 01/12/19 13:38 Temperature Pulse Rate 152 H 126 H 132 H Respiratory Rate 18 12 18 Blood Pressure Blood Pressure [Right Arm] 121/65 111/66 131/91 H Pulse Oximetry 95 100 95 01/12/19 13:41 01/12/19 13:53 01/12/19 13:57 Temperature Pulse Rate 133 H 82 Respiratory Rate 22 22 20 Blood Pressure Blood Pressure [Right Arm] 133/75 118/74 Pulse Oximetry 100 100 95 01/12/19 14:00 01/12/19 14:01 01/12/19 14:06 Temperature Pulse Rate 82 77 72 Respiratory Rate 16 18 18 Blood Pressure Blood Pressure [Right Arm] 127/85 127/85 122/81 Pulse Oximetry 100 99 99 01/12/19 14:11 01/12/19 14:15 01/12/19 14:20 Temperature Pulse Rate 70 64 72 Respiratory Rate 18 15 16 Blood Pressure Blood Pressure [Right Arm] 130/73 119/72 119/70 Pulse Oximetry 100 99 99 01/12/19 14:25 01/12/19 14:31 Temperature Pulse Rate 80 89 Respiratory Rate 18 16 Blood Pressure Blood Pressure [Right Arm] 122/72 104/59 L Pulse Oximetry 99 99 MDM - Arrhythmia/Palpitations Lab Data Attestation: I reviewed the patient's lab results. Result diagrams: 01/12/19 12:37 01/12/19 12:37 Lab Results 01/12/19 01/12/19 01/12/19 Range/Units 12:37 12:37 12:37 WBC 5.3 (4.5-11.0) X10^3/uL RBC 4.12 (4.0-5.2) X10^6/uL Hgb 13.8 (12.0-16.0) g/dL Hct 41.6 (36-46) % MCV 100.9 H (80-100) fL MCH 33.5 (26-34) PG MCHC 33.2 (30-36) % RDW 13.4 (11.6-14.8) % Plt Count 140 L (150-400) X10^3/uL Neut % (Auto) 67.7 (50-75) % Lymph % (Auto) 18.9 L (25-40) % [place] % (Auto) 12.1 (3-14) % Eos % (Auto) 0.5 L (2-4) % Baso % (Auto) 0.8 (0-2) % Neut # (Auto) 3600 (3517-3193) /uL Lymph # (Auto) 1000 L (9089-6877) /uL [place] # (Auto) 600 (0-900) /uL Eos # (Auto) 0 (0-450) /uL Baso # (Auto) 0 (0-100) /uL PT 13.2 H (10.1-12.7) SECONDS INR 1.1 (0.9-1.3) APTT 30 (26.4-36.2) SECONDS Sodium 134 L (137-145) mmol/L Potassium 3.9 (3.4-5.1) mmol/L Chloride 98 (98-107) mmol/L Carbon Dioxide 26 (22-32) mmol/L BUN 5 L (7-17) mg/dL Creatinine 0.50 L (0.52-1.04) mg/dL Estimated GFR > 60.0 (>60) mL/min BUN/Creatinine Ratio 10.0 (6-22) Glucose 114 H (80-110) mg/dL Calcium 8.8 (8.4-10.2) mg/dL Magnesium (1.6-2.3) mg/dL Total Bilirubin 1.4 H (0.2-1.3) mg/dL AST 155 H (14-36) IU/L ALT 66 H (9-52) IU/L Alkaline Phosphatase 174 H (38-126) U/L Total Creatine Kinase (30-135) U/L CK-MB (CK-2) CK-MB (CK-2) Rel Index Troponin I (0.01-0.034) ng/mL Total Protein 6.4 (6.3-8.2) g/dL Albumin 3.3 L (3.5-5.0) g/dL Globulin 3.1 (1.7-4.1) g/dL Albumin/Globulin Ratio 1.1 (1.0-2.8) TSH (0.47-4.68) uIU/mL Urine RBC (0-5/HPF) Urine WBC (0-5/HPF) Ur Squamous Epith Cells Amorphous Sediment Urine Bacteria (None) Urine Mucus (Negative) Ur Culture Indicated? 01/12/19 01/12/19 01/12/19 Range/Units 12:37 12:37 12:37 WBC (4.5-11.0) X10^3/uL RBC (4.0-5.2) X10^6/uL Hgb (12.0-16.0) g/dL Hct (36-46) % MCV (80-100) fL MCH (26-34) PG MCHC (30-36) % RDW (11.6-14.8) % Plt Count (150-400) X10^3/uL Neut % (Auto) (50-75) % Lymph % (Auto) (25-40) % [place] % (Auto) (3-14) % Eos % (Auto) (2-4) % Baso % (Auto) (0-2) % Neut # (Auto) (8619-8549) /uL Lymph # (Auto) (8461-0339) /uL [place] # (Auto) (0-900) /uL Eos # (Auto) (0-450) /uL Baso # (Auto) (0-100) /uL PT (10.1-12.7) SECONDS INR (0.9-1.3) APTT (26.4-36.2) SECONDS Sodium (137-145) mmol/L Potassium (3.4-5.1) mmol/L Chloride (98-107) mmol/L Carbon Dioxide (22-32) mmol/L BUN (7-17) mg/dL Creatinine (0.52-1.04) mg/dL Estimated GFR (>60) mL/min BUN/Creatinine Ratio (6-22) Glucose (80-110) mg/dL Calcium (8.4-10.2) mg/dL Magnesium 1.2 L (1.6-2.3) mg/dL Total Bilirubin (0.2-1.3) mg/dL AST (14-36) IU/L ALT (9-52) IU/L Alkaline Phosphatase (38-126) U/L Total Creatine Kinase 22 L (30-135) U/L CK-MB (CK-2) TNP CK-MB (CK-2) Rel Index TNP Troponin I < 0.012 (0.01-0.034) ng/mL Total Protein (6.3-8.2) g/dL Albumin (3.5-5.0) g/dL Globulin (1.7-4.1) g/dL Albumin/Globulin Ratio (1.0-2.8) TSH < 0.02 L (0.47-4.68) uIU/mL Urine RBC None seen (0-5/HPF) Urine WBC 1-5/hpf (0-5/HPF) Ur Squamous Epith Cells 1-5 /hpf Amorphous Sediment 1+ Urine Bacteria Few (2-10) H (None) Urine Mucus 1+ H (Negative) Ur Culture Indicated? Specimen cultured Point of Care Testing Test Results Not applicable Urine Dip Bedside Urine Glucose Negative Bedside Urine Bilirubin + 1 Bedside Urine Ketone ++ 40 Urine Specific [place] 1.015 Bedside Urine Occult Blood - Negative Bedside Urine pH 7.0 Bedside Urine Protein + 30 Bedside Urine Urobilinogen +/- 1mg Bedside Urine Nitrite - Negative Bedside Urine Leukocytes +/- 15 Esterase Imaging Data Chest x-ray: Radiologist's impression: PROCEDURE: XR CHEST 1V INDICATIONS: short of breath TECHNIQUE: One view of the chest was acquired. COMPARISON: None. FINDINGS: Surgical changes and devices: None. Lungs and pleura: Lungs are clear. No pleural effusions or pneumothorax. Mediastinum: Mediastinal contours appear normal. Heart size is normal. Bones and chest wall: No suspicious bony lesions. Overlying soft tissues appear unremarkable. IMPRESSION: No acute cardiopulmonary pathology. Dictated by: Tariq Polo M.D. on 01/12/2019 at 12:45 ECG Data Attestation: I personally reviewed and interpreted this ECG as follows: Interpretation: EKG 1. Atrial fibrillation rate [address] changes no priors to compare. EKG no change normal sinus rhythm rate [address] changes here interval 111 MDM Narrative Medical decision making narrative: Patient is feeling significantly better after his cardioversion. I recommended follow-up with her PCP. Discharge Plan Departure Patient Disposition: Home Clinical Impression: Atrial fibrillation Qualifiers: Atrial fibrillation type: paroxysmal Qualified Code(s): I48.0 - Paroxysmal atrial fibrillation Discharge Date/Time: 01/12/19 14:50 Interventions: ED Discharge Assessment Last Done: 01/12/19 14:49 Instructions: DI for Atrial Fibrillation Activity Restrictions/Additional Instructions: *You have been diagnosed with atrial fibrillation with rapid ventricular *What to do: You're given sedated that medication for cardioversion. You cannot drive for 6 hr after the medication *Continue to take medications as directed *Follow up with your primary care provider in 2-3 days *Return to ER if you should have shortness of breath, heart palpitations, dizziness, lightheaded or any new, worsening or concerning symptoms Prescriptions: No Action levothyroxine 200 mcg Tablet 400 mcg PO DAILY RF: 0 Doxycycline 1 dose PO DIRECTED RF: 0 spironolactone 25 mg tablet 25 mg PO DAILY RF: 0 metoprolol succinate 25 mg tablet extended release 24 hr 25 mg PO DAILY RF: 0 lisinopril 2.5 mg tablet 2.5 mg PO DAILY RF: 0 Eliquis 5 mg tablet 5 mg PO BID RF: 0 potassium chloride 20 mEq tablet extended release 20 meq PO DAILY RF: 0 Referrals: Vladimir Espinal MD [Physician] -
[2019-01-12 12:40] LABS: RBC Urine None Seen (0-5/HPF)
[2019-01-12 12:46] LABS: INR 1.1 (0.9-1.3); Prothrombin Time 13.2 SECONDS (10.1-12.7)
[2019-01-12 12:47] LABS: Add Manual Diff / Slide Review NO; Basophils Absolute Auto 0 /uL (0-100); Basophils Percent Auto 0.8 % (0-2); Eosinophils Absolute Auto 0 /uL (0-450); Eosinophils Percent Auto 0.5 % (2-4); Hematocrit 41.6 % (36-46); Hemoglobin 13.8 g/dL (12.0-16.0); Lymphocytes Absolute Auto 1000 /uL (1100-4500); Lymphocytes Percent Auto 18.9 % (25-40); Mean Corpuscular HGB Conc 33.2 % (30-36); Mean Corpuscular Hemoglobin 33.5 PG (26-34); Mean Corpuscular Volume 100.9 fL (80-100); Monocytes Absolute Auto 600 /uL (0-900); Monocytes Percent Auto 12.1 % (3-14); Neutrophils Absolute Auto 3600 /uL (1500-7000); Neutrophils Percent Auto 67.7 % (50-75); Platelet Count 140 X10^3/uL (150-400); Red Blood Cell Count 4.12 X10^6/uL (4.0-5.2); Red Cell Distribution Width 13.4 % (11.6-14.8); White Blood Cell Count 5.3 X10^3/uL (4.5-11.0)
[2019-01-12 12:48] LABS: PTT Partial Thromboplastin Tim 30 SECONDS (26.4-36.2)
[2019-01-12 12:50] LABS: Creatine Kinase 22 U/L (30-135); Magnesium 1.2 mg/dL (1.6-2.3)
[2019-01-12 12:51] LABS: Alanine Aminotransferase 66 IU/L (9-52); Albumin 3.3 g/dL (3.5-5.0); Albumin Globulin Ratio 1.1 (1.0-2.8); Alkaline Phosphatase 174 U/L (38-126); Aspartate Aminotransferase 155 IU/L (14-36); Bilirubin Total 1.4 mg/dL (0.2-1.3); Blood Urea Nitrogen 5 mg/dL (7-17); Calcium 8.8 mg/dL (8.4-10.2); Carbon Dioxide 26 mmol/L (22-32); Chloride 98 mmol/L (98-107); Estimated Glomerular Filt Rate > 60.0 mL/min (>60); Globulin 3.1 g/dL (1.7-4.1); Glucose 114 mg/dL (80-110); HEMOLYSIS < 15 (0-50); Potassium 3.9 mmol/L (3.4-5.1); Sodium 134 mmol/L (137-145); Total Protein 6.4 g/dL (6.3-8.2)
[2019-01-12 13:02] LABS: Troponin I < 0.012 ng/mL (0.01-0.034)
[2019-01-12 13:05] LABS: Amorphous Sediment Urine 1+; Bacteria Urine Few (2-10); Culture Indicated Urine Specimen Cultured; Mucus Urine 1+ (Negative); Squamous Epithelial Cell Urine 1-5 /HPF; WBC Urine 1-5/HPF (0-5/HPF)
[2019-01-12 13:27] LABS: Thyroid Stimulating Hormone < 0.02 uIU/mL (0.47-4.68)
[2019-01-12] MEDS: ETOMIDATE 2 MG/ML VIAL 9 MG IV (13:55)
== END 2019-01-12 14:50 | disposition home or self-care (01) ==
PROVIDERS: Emergency Provider Emergency Medicine
DX: I48.0 Paroxysmal atrial fibrillation (principal)
CPT/HCPCS: 36591; 71045; 80053; 81003; 81015; 82550; 83735; 84443; 84484; 85025; 85610; 85730; 87086; 92960; 93005; 96361; 96374; 99152; 99285

== ENCOUNTER 2019-01-23 18:03 | Observation (INO) | payer BC, SELFPAY ==
[2019-01-23] VITALS (10 sets, daily range): BP systolic 99–137; BP diastolic 49–97; PULSE 94–152; RESP 14–20; TEMP 36.4–36.7; O2SAT 95–100; BMI 28.4
--- NOTE | 2019-01-23 18:33 | ED.ARRPALP ---
HPI - Arrhythmia/Palpitations General Chief Complaint: Arrhythmia/Palpitations Stated Complaint: AFIB/ALSO FELL W/INJURIES Time Seen by Provider: 01/23/19 18:32 Source: patient Mode of arrival: ambulatory Limitations: no limitations History of Present Illness HPI narrative: Patient has a history of what sounds like paroxysmal atrial fibrillation. Her 1st episode of this was at the end of last year. She is currently on Eliquis and metoprolol. She states she is taking her medication. She has not followed up with a public transportation inspector. She has a scheduled appointment in July with a public transportation inspector with the group at [facility]. She was here in the emergency department last week with an episode of AFib with RVR. She states she was started on diltiazem and when this did not work she was sedated and had a cardioversion. She states that yesterday she felt like she was in atrial fibrillation again however it appeared to resolve by itself. She stated that earlier today she felt like her heart was again racing. She also states that a couple days ago she had what sounds like a mechanical fall. She states that she did have left knee pain and right ankle pain however that seems to have improved. She also stated that she does not remember hitting her head but she does have some sore spots on the posterior right portion of her head. Related Data Home Medications Medication Instructions Recorded Confirmed Doxycycline 1 dose PO DIRECTED 09/11/18 09/11/18 levothyroxine 400 mcg PO DAILY 09/11/18 09/11/18 apixaban [Eliquis] 5 mg PO BID 01/12/19 01/12/19 lisinopril 2.5 mg PO DAILY 01/12/19 01/12/19 metoprolol succinate 25 mg PO DAILY 01/12/19 01/12/19 potassium chloride 20 meq PO DAILY 01/12/19 01/12/19 spironolactone 25 mg PO DAILY 01/12/19 01/12/19 Allergies Allergy/AdvReac Type Severity Reaction Status Date / Time No Known Drug Allergies Allergy Verified 09/11/18 16:19 Review of Systems Constitutional Denies fever(s), Denies frequent falls and Denies headache(s) ENT Ears, Nose, Mouth, and Throat: Denies vertigo, Denies dizziness and Denies headache(s) Cardiovascular Denies chest pain, Denies syncope, Reports rapid heart rate, Denies edema, Reports irregular heart rhythm, Reports palpitations and Denies dyspnea Respiratory Denies cough and Denies dyspnea Gastrointestinal Gastrointestinal: Denies abdominal pain, Denies nausea and Denies vomiting Genitourinary Denies dysuria Musculoskeletal Denies myalgias, Reports arthralgias (Left knee and right ankle pain), Denies joint swelling, Denies muscle weakness, Denies numbness, Denies stiffness and Denies tingling Integumentary/Breasts Denies lesions and Denies rash Neurologic Denies vertigo, Denies dizziness, Denies syncope, Denies frequent falls, Denies headache(s), Denies numbness, Denies tingling and Denies paresthesias Endocrine Reports palpitations Hematologic/Lymphatic Comments: On [facility] Medical History Abdominal hernia (Acute) Atrial fibrillation (Acute) Chronic anticoagulation (Acute) History of cardioversion (Acute) Rosacea (Acute) Hypothyroid (Acute) Surgical History Hx of gastric bypass (Acute) Family History Mother No known health problems Father No known health problems Social History household members: children Smoking Status: Never smoker Social History household members: children Smoking Status: Never smoker Exam Initial Vital Signs Initial Vital Signs: Vital Signs Temperature 98.1 F 01/23/19 18:22 Pulse Rate 107 H 01/23/19 18:22 Respiratory Rate 18 01/23/19 18:22 Blood Pressure 116/77 01/23/19 18:22 Pulse Oximetry 95 01/23/19 18:22 Const General: cooperative, comfortable, well developed, well groomed and No acute distress Orientation: alert, awake and oriented x3 Resp Effort & Inspection: normal respiratory effort Auscultation: clear to auscultation bilaterally Cardio Rate: tachycardic Rhythm: abnormal rhythm irregularly irregular Pulses: radial pulses present GI Inspection: non-distended Palpation: soft, No firm and No tender Back/Spine/Pelvis Cervical Spine: No cervical spinal tenderness Skin Lesions: no lesions Rashes: no rashes Neuro General: alert, awake and oriented x3 Cognition: normal cognition Speech: speech normal Gait: normal gait Motor: muscle tone normal throughout Extrem Other: Patient with some tenderness to palpation around the left knee however has full range of motion. The same with the right ankle. Psych Appearance: grossly normal and well kempt Scores GCS [place] coma scale eye opening: Spontaneous [place] coma scale verbal response: Orientated [place] coma scale motor response: Obey commands [place] coma scale total score: 15 Nexus Score for C-Spine Focal Neurologic deficit present: No Midline spinal tenderness present: No Altered level of conciousness present: No Intoxication present: No Distracting Injury Present: No Nexus Criteria for C-spine: 0 Course Orders Ordered: ED Orders 01/24/19 Urinalysis and Microscopic Stat 01/24/19 02:30 Add on Lab Tests Stat 01/24/19 06:00 Complete Blood Count MAN DIFF Stat Comprehensive Metabolic Panel Stat Folate Stat Magnesium Stat Vitamin B12 Stat Acetaminophen (Tylenol) 650 mg PO Q6HR PRN PRN Reason: As Needed for Fever/Mild Pain Apixaban (Eliquis) 5 mg PO BID MAURICE Last Admin: 01/24/19 00:25 Dose: 5 mg Sodium Chloride (Normal Saline 0.9%) 1,000 mls @ 100 mls/hr IV CONT MAURICE Last Infusion: 01/24/19 03:25 Dose: 100 mls/hr Admin: 01/23/19 19:11 Dose: 125 mls/hr Diltiazem HCl 125 mg/ Dextrose 125 mls @ 5 mls/hr IV TITRATE MAURICE; Protocol Last Titration: 01/24/19 03:36 Dose: 0 mg/hr, 0 mls/hr Titration: 01/24/19 03:17 Dose: 2.5 mg/hr, 2.5 mls/hr Titration: 01/24/19 03:04 Dose: 5 mg/hr, 5 mls/hr Titration: 01/23/19 22:00 Dose: 10 mg/hr, 10 mls/hr Admin: 01/23/19 20:04 Dose: 5 mg/hr, 5 mls/hr Magnesium Sulfate (Magnesium Sulfate) 4 gm in 100 mls @ 50 mls/hr IV NOW ONE Stop: 01/24/19 05:25 Discontinued Medications Diltiazem HCl (Cardizem) 20 mg IV NOW ONE Stop: 01/23/19 19:04 Last Admin: 01/23/19 19:11 Dose: 20 mg Ceftriaxone Sodium/Dextrose (Rocephin) 1 gm in 50 mls @ 100 mls/hr IV Q24H [facility] Stop: 01/27/19 03:19 Vital Signs - 8 hr 01/23/19 19:50 01/23/19 20:00 01/23/19 20:04 Temperature 97.5 F L Pulse Rate 111 H 109 H 108 H Respiratory Rate 19 14 Blood Pressure 137/83 124/66 Blood Pressure [Right Arm] 110/71 Pulse Oximetry 100 01/23/19 20:30 01/23/19 20:51 01/23/19 22:07 Temperature Pulse Rate 111 H 113 H 116 H Respiratory Rate 17 18 20 Blood Pressure 115/68 106/57 L Blood Pressure [Right Arm] 115/68 Pulse Oximetry 100 99 01/23/19 22:30 01/24/19 00:10 01/24/19 00:32 Temperature 96.5 F L Pulse Rate 104 H 82 Respiratory Rate 19 21 Blood Pressure 107/49 L 105/61 Blood Pressure [Right Arm] Pulse Oximetry 96 96 01/24/19 01:02 01/24/19 02:05 01/24/19 03:02 Temperature Pulse Rate 87 84 81 Respiratory Rate 21 21 22 Blood Pressure 112/67 84/46 L 81/55 L Blood Pressure [Right Arm] Pulse Oximetry 99 97 96 01/24/19 03:22 Temperature Pulse Rate 87 Respiratory Rate 19 Blood Pressure 89/42 L Blood Pressure [Right Arm] Pulse Oximetry 97 MDM - Arrhythmia/Palpitations Lab Data Attestation: I reviewed the patient's lab results. Result diagrams: 01/23/19 18:39 01/23/19 18:39 Lab Results 01/23/19 01/23/19 01/23/19 Range/Units 18:39 18:39 18:39 WBC 4.4 L (4.5-11.0) X10^3/uL RBC 3.94 L (4.0-5.2) X10^6/uL Hgb 13.2 (12.0-16.0) g/dL Hct 40.3 (36-46) % MCV 102.2 H (80-100) fL MCH 33.5 (26-34) PG MCHC 32.8 (30-36) % RDW 13.6 (11.6-14.8) % Plt Count 94 L (150-400) X10^3/uL Neut % (Auto) 65.5 (50-75) % Lymph % (Auto) 21.7 L (25-40) % [place] % (Auto) 11.3 (3-14) % Eos % (Auto) 0.9 L (2-4) % Baso % (Auto) 0.6 (0-2) % Neut # (Auto) 2900 (7882-2529) /uL Lymph # (Auto) 900 L (9662-1012) /uL [place] # (Auto) 500 (0-900) /uL Eos # (Auto) 0 (0-450) /uL Baso # (Auto) 0 (0-100) /uL PT 11.8 (10.1-12.7) SECONDS INR 1.0 (0.9-1.3) APTT 30 (26.4-36.2) SECONDS Sodium 130 L (137-145) mmol/L Potassium 3.7 (3.4-5.1) mmol/L Chloride 93 L (98-107) mmol/L Carbon Dioxide 24 (22-32) mmol/L BUN 10 (7-17) mg/dL Creatinine 0.60 (0.52-1.04) mg/dL Estimated GFR > 60.0 (>60) mL/min BUN/Creatinine Ratio 16.7 (6-22) Glucose 101 (80-110) mg/dL Calcium 9.1 (8.4-10.2) mg/dL Magnesium (1.6-2.3) mg/dL TSH (0.47-4.68) uIU/mL Free T4 (0.78-2.19) ng/dL 01/23/19 01/23/19 Range/Units 18:39 18:39 WBC (4.5-11.0) X10^3/uL RBC (4.0-5.2) X10^6/uL Hgb (12.0-16.0) g/dL Hct (36-46) % MCV (80-100) fL MCH (26-34) PG MCHC (30-36) % RDW (11.6-14.8) % Plt Count (150-400) X10^3/uL Neut % (Auto) (50-75) % Lymph % (Auto) (25-40) % [place] % (Auto) (3-14) % Eos % (Auto) (2-4) % Baso % (Auto) (0-2) % Neut # (Auto) (2152-5086) /uL Lymph # (Auto) (6580-5719) /uL [place] # (Auto) (0-900) /uL Eos # (Auto) (0-450) /uL Baso # (Auto) (0-100) /uL PT (10.1-12.7) SECONDS INR (0.9-1.3) APTT (26.4-36.2) SECONDS Sodium (137-145) mmol/L Potassium (3.4-5.1) mmol/L Chloride (98-107) mmol/L Carbon Dioxide (22-32) mmol/L BUN (7-17) mg/dL Creatinine (0.52-1.04) mg/dL Estimated GFR (>60) mL/min BUN/Creatinine Ratio (6-22) Glucose (80-110) mg/dL Calcium (8.4-10.2) mg/dL Magnesium 1.2 L (1.6-2.3) mg/dL TSH 0.39 L D (0.47-4.68) uIU/mL Free T4 1.14 (0.78-2.19) ng/dL Imaging Data Chest x-ray: Radiologist's impression: [address] [address] XRay Report Signed Patient: JOSY ROJAS R#: [id number] : 8Acct:[id number] Age/Sex: 58 / FDate of Service: 01/12/19 Loc: ED Accession Number: [id number] Procedure: XR chest 1V Ordering Provider: Kathya Tineo D.O. PROCEDURE: XR CHEST 1V INDICATIONS: short of breath TECHNIQUE: One view of the chest was acquired. COMPARISON: None. FINDINGS: Surgical changes and devices: None. Lungs and pleura: Lungs are clear. No pleural effusions or pneumothorax. Mediastinum: Mediastinal contours appear normal. Heart size is normal. Bones and chest wall: No suspicious bony lesions. Overlying soft tissues appear unremarkable. IMPRESSION: No acute cardiopulmonary pathology. Dictated by: Tariq Polo M.D. on 01/12/2019 at 12:45 Approved by: Tariq Polo M.D. on 01/12/2019 at 12:47 CT scan - head: Radiologist's impression: [address] [address] [address] Scan Report Signed Patient: Josy Rojas VMR#: [id number] : 8Acct:[id number] Age/Sex: 58 / FDate of Service: 01/23/19 Loc: ED Accession Number: [id number] Procedure: CT head/brain wo con Ordering Provider: Eric Tao D.O. PROCEDURE: CT HEAD/BRAIN WO CON INDICATIONS: fall on blood thinners TECHNIQUE: Noncontrast 4.5 mm thick angled axial sections acquired from the foramen magnum to the vertex, with coronal and sagittal reformats. For radiation dose reduction, the following was used: automated exposure control, adjustment of mA and/or kV according to patient size. COMPARISON: None. FINDINGS: Image quality: Excellent. CSF spaces: Basal cisterns are patent. No extra-axial fluid collections. Ventricles are normal in size and shape. Brain: No midline shift. No intracranial masses or hemorrhage. Myles-white matter interface is normal. Tiny lacunar infarcts in the right thalamus. Skull and face: Calvarium and visualized facial bones are intact, without suspicious lesions. Sinuses: Visualized sinuses and mastoids are clear. IMPRESSION: 1. No evidence of acute or subacute hemorrhage. 2. Changes to suggest chronic microvascular ischemia. 3. No fractures. Dictated by: Shayy Bhakta M.D. on 01/23/2019 at 19:59 Approved by: Shayy Bhakta M.D. on 01/23/2019 at 20:01 ECG Data Attestation: I personally reviewed and interpreted this ECG as follows: Prior ECG tracings: not available for review Interpretation: Atrial fibrillation Ventricular rate of 150 One normal axis Normal QRS Normal QTC Nonspecific ST T wave changes MDM Narrative Medical decision making narrative: Patient in AFib with RVR. It does appear that it started today. She is currently on Eliquis. Her head CT done because of the fall a couple days ago was unremarkable for acute pathology. She has full range of motion of her left knee and right ankle and no other injuries reported from the event. This does appear to be a mechanical fall. Will hold on any radiologic studies for now. I did discuss with the patient her options for treatment of her atrial fibrillation. I did inform her that she was a candidate for cardioversion here in the emergency department. We did discuss the risks and benefits of this. She expressed understanding stating that last week she was sedated and had a cardioversion which appeared to have been successful. Patient opted to 1st try the Cardizem to see if this would be successful. She was given Cardizem bolus and this did improve her heart rate to the 80s to 90s however she was still in AFib. After some observation her heart rate did increase again into the 120s. Informed the patient that we had options to include putting her on a Cardizem drip for rate control with the potential that this could convert her to sinus rhythm. Informed her that our best chances of rhythm controlling her would be his sedation and cardioversion here in the emergency department. The patient stated that she did not want cardioversion. She stated that she would rather have the Cardizem drip. Informed her that if was started on a drip we would have to admit her to the hospital and this still potentially would not be successful at controlling her rhythm. She expressed understanding however still did not want cardioversion. Discussed the case with the night hospitalist. Will admit for further evaluation and treatment. The patient expressed understanding and agreement to the admission. Discharge Plan Departure Patient Disposition: Admitted As Inpatient Clinical Impression: Atrial fibrillation Qualifiers: Atrial fibrillation type: unspecified Qualified Code(s): I48.91 - Unspecified atrial fibrillation Discharge Date/Time: 01/23/19 20:52 Interventions: ED Discharge Assessment Last Done: 01/23/19 20:51 Admit Date/Time: 01/23/19 20:27 Admit Provider: Suzanne Quinteros
--- NOTE | 2019-01-23 18:42 | DI.CT.S_ITS ---
PROCEDURE: CT HEAD/BRAIN WO CON INDICATIONS: fall on blood thinners TECHNIQUE: Noncontrast 4.5 mm thick angled axial sections acquired from the foramen magnum to the vertex, with coronal and sagittal reformats. For radiation dose reduction, the following was used: automated exposure control, adjustment of mA and/or kV according to patient size. COMPARISON: None. FINDINGS: Image quality: Excellent. CSF spaces: Basal cisterns are patent. No extra-axial fluid collections. Ventricles are normal in size and shape. Brain: No midline shift. No intracranial masses or hemorrhage. Myles-white matter interface is normal. Tiny lacunar infarcts in the right thalamus. Skull and face: Calvarium and visualized facial bones are intact, without suspicious lesions. Sinuses: Visualized sinuses and mastoids are clear. IMPRESSION: 1. No evidence of acute or subacute hemorrhage. 2. Changes to suggest chronic microvascular ischemia. 3. No fractures. Dictated by: Shayy Bhakta M.D. on 01/23/2019 at 19:59 Approved by: Shayy Bhakta M.D. on 01/23/2019 at 20:01
[2019-01-23 18:52] LABS: Add Manual Diff / Slide Review NO; Basophils Absolute Auto 0 /uL (0-100); Basophils Percent Auto 0.6 % (0-2); Eosinophils Absolute Auto 0 /uL (0-450); Eosinophils Percent Auto 0.9 % (2-4); Hematocrit 40.3 % (36-46); Hemoglobin 13.2 g/dL (12.0-16.0); Lymphocytes Absolute Auto 900 /uL (1100-4500); Lymphocytes Percent Auto 21.7 % (25-40); Mean Corpuscular HGB Conc 32.8 % (30-36); Mean Corpuscular Hemoglobin 33.5 PG (26-34); Mean Corpuscular Volume 102.2 fL (80-100); Monocytes Absolute Auto 500 /uL (0-900); Monocytes Percent Auto 11.3 % (3-14); Neutrophils Absolute Auto 2900 /uL (1500-7000); Neutrophils Percent Auto 65.5 % (50-75); Platelet Count 94 X10^3/uL (150-400); Red Blood Cell Count 3.94 X10^6/uL (4.0-5.2); Red Cell Distribution Width 13.6 % (11.6-14.8); White Blood Cell Count 4.4 X10^3/uL (4.5-11.0)
[2019-01-23 18:54] LABS: Prothrombin Time 11.8 SECONDS (10.1-12.7)
[2019-01-23 18:56] LABS: PTT Partial Thromboplastin Tim 30 SECONDS (26.4-36.2)
[2019-01-23 18:59] LABS: BUN Creatinine Ratio 16.7 (6-22); Blood Urea Nitrogen 10 mg/dL (7-17); Calcium 9.1 mg/dL (8.4-10.2); Carbon Dioxide 24 mmol/L (22-32); Chloride 93 mmol/L (98-107); Estimated Glomerular Filt Rate > 60.0 mL/min (>60); Glucose 101 mg/dL (80-110); HEMOLYSIS 23 (0-50); Potassium 3.7 mmol/L (3.4-5.1); Sodium 130 mmol/L (137-145)
[2019-01-23] MEDS: dilTIAZem 5 MG/ML SDV 20 MG IV (19:11)
[2019-01-23] MEDS: SODIUM CHLORIDE 0.9% 1,000 ML 125 ML IV (19:11)
[2019-01-23 19:50] LABS: Thyroid Stimulating Hormone 0.39 uIU/mL (0.47-4.68)
[2019-01-23] MEDS: dilTIAZem 125 MG in DEXTROSE 5 % IN WATER 100 ML IV (20:04)
--- NOTE | 2019-01-23 23:36 | PM.HP.1 ---
History of Present Illness Date Patient Seen: 01/23/19 Time Patient Seen: 23:36 Chief complaint: Afib Narrative: The patient is a 58-year-old female with PMH of PAF, chronic AC w/ eliquis, h/o obesity (s/p gastric bypass), hypothyroidism, DDD (thoracic spine), coronary atherosclerosis, and cholelithiasis. Denies prior history of hypertension, diabetes, TIA/CVA, thrombosis, and GI bleed. Patient presented to the ED out of concern for palpitations. Symptom specifically noted after patient has sustained a ground level fall. A fall has taken place while patient was in an upright position. She felt profound weakness and was unable to sustain self upright, consequently dropping to the ground. Landed onto her tailbone. Denies complete loss of consciousness. Denies injury to the head. Given degree of profound weakness, patient was unable to get up on her own. She was down for less than 30 min. She was able to call a friend for help. Prior to the event reports feeling dizzy (notes room spinning) and lightheaded (notes feeling faint). Palpitations came about after the fall and were associated with shortness of breath. Denies concurrent chest, neck or jaw pain, paresthesia of extremities, headache, change in vision, or loss of bowel or bladder control. Denies symptoms of post-ictal state. patient does not check her blood pressure at home. Recently has been experiencing dizziness with position change; however, no syncopal events with exception of the event noted above. Also, reports some degree of BLE edema, but not excessive. Denies exertional dyspnea. Patient has an underlying history of paroxysmal atrial fibrillation. Initially diagnosed 10 years ago by report. Patient is from [place], relocated to local area from [place] in the last 3-4 months. Previously atrial fibrillation was managed with oral metoprolol (not known if short or long acting version). Patient was not anti-coagulated. Previously followed with a senior solutions consultant in [place], however unable to recall his name. Until recently, atrial fibrillation was managed with pharmacotherapy, denies prior cardioversions or ablations. Recently patient having increased frequency of arrhythmia. Notes having an echo in in November of 2018, which revealed LVEF of 45%. As a result, in addition to her metoprolol, she was started on lisinopril 2.5 mg QD, spironolactone, and Eliquis 5 mg QD. On 01/12/2019 patient underwent a successful direct current cardioversion. Currently, she is not managed by cardiology. However, she does have a pending appointment with cardiology in July of 2019 at [facility]. Reports a history of a stress test 20 years ago. Patient has a longstanding history of hypothyroidism. On thyroid medication since young adulthood, for at least 20 years. Previously on 400 mcg levothyroxine, reports a dose decrease to 300 mcg in 2017. review of records shows patient's TSH to be less than 0.02 on 01/12/19. In addition, patient reports having stressful life circumstances for the past 1 year. She reports the of her in brother, in addition to other domestic stressors about which the patient did not provide any further details. Reports loss of 100 lb in the past 12-18 months. Notes diminished appetite. Notes to being able to maintain adequate levels of hydration. Notes some degree of nutritional malabsorption due to prior history gastric bypass surgery, reports taking B1, B12, and magnesium supplements. Patient History Medical History Abdominal hernia (Acute) Atrial fibrillation (Acute) Chronic anticoagulation (Acute) History of cardioversion (Acute) Rosacea (Acute) Hypothyroid (Acute) Surgical History Hx of gastric bypass (Acute) Family History Mother No known health problems Father No known health problems Social History household members: children Smoking Status: Never smoker Family & Social History Social History: household members Children Prior Living Arrangements House Safety & Behavioral: Feels Safe in Current Yes Environment Been Physically Hurt or No Threatened By a Person Suicidal Ideation Description None Suicide Plan Description No Plan Tobacco & Substance use: Smoking Status Never smoker alcohol intake frequency Drinks occasionally, 0-2 drinks per day few times a month Substance Use Type Denies prior or current history of recreational drug use Meds Home Medications Medication Instructions Recorded Confirmed Type Doxycycline 1 dose PO DIRECTED 09/11/18 09/11/18 History levothyroxine 400 mcg PO DAILY 09/11/18 09/11/18 History apixaban [Eliquis] 5 mg PO BID 01/12/19 01/12/19 History lisinopril 2.5 mg PO DAILY 01/12/19 01/12/19 History metoprolol succinate 25 mg PO DAILY 01/12/19 01/12/19 History potassium chloride 20 meq PO DAILY 01/12/19 01/12/19 History spironolactone 25 mg PO DAILY 01/12/19 01/12/19 History Allergies Allergy/AdvReac Type Severity Reaction Status Date / Time No Known Drug Allergies Allergy Verified 09/11/18 16:19 Review of Systems Review of Systems All systems reviewed & are unremarkable except as noted in HPI and below Exam Vital Signs (past 8 hours): - 01/23/19 18:22 01/23/19 19:11 01/23/19 19:24 Temperature 98.1 F Pulse Rate 107 H 152 H 94 H Respiratory Rate 18 19 Blood Pressure 116/77 134/97 H Blood Pressure [Right Arm] 99/66 Pulse Oximetry 95 100 01/23/19 19:50 01/23/19 20:00 01/23/19 20:04 Temperature 97.5 F L Pulse Rate 111 H 109 H 108 H Respiratory Rate 19 14 Blood Pressure 137/83 124/66 Blood Pressure [Right Arm] 110/71 Pulse Oximetry 100 01/23/19 20:30 01/23/19 20:51 01/23/19 22:07 Temperature Pulse Rate 111 H 113 H 116 H Respiratory Rate 17 18 20 Blood Pressure 115/68 106/57 L Blood Pressure [Right Arm] 115/68 Pulse Oximetry 100 99 01/23/19 22:30 Temperature Pulse Rate 104 H Respiratory Rate 19 Blood Pressure 107/49 L Blood Pressure [Right Arm] Pulse Oximetry 96 Oxygen Delivery Method Room Air Narrative Exam Narrative: Constitutional: NA Neurologic: AOx3, no focal neurological deficits Head: NC, AT Eyes: PERRL, EOMI, no sclera anicteric Ears: external ears normal, no otorrhea Nose: external nose normal, no rhinorrhea or epistaxis Throat: dry MM, oropharynx w/o exudate Neck: no masses, lymphadenopathy, or JVD Chest / Respiratory: equal chest rise, no dyspnea or tachypnea at rest, CTAB Heart / CV: Irregular rhythm, no murmur Abdomen / GI: central obesity, midline abdominal hernia palpated (non-tender, reducible), some diffuse tenderness / guarding organomegaly difficult to palpate given degree of abdominal contour : suprapubic tenderness Peripheral / Vascular: warm to touch, DP and PT pulses palpable (1+), no edema Musc: full ROM of upper and lower extremities, adequate muscle tone and bulk Skin: no ecchymosis or suspicious lesions / ulcers Objective Labs Result Diagrams: 01/23/19 18:39 01/23/19 18:39 Labs: Laboratory Results - last 24 hr 01/23/19 01/23/19 01/23/19 18:39 18:39 18:39 WBC 4.4 L RBC 3.94 L Hgb 13.2 Hct 40.3 MCV 102.2 H MCH 33.5 MCHC 32.8 RDW 13.6 Plt Count 94 L Neut % (Auto) 65.5 Lymph % (Auto) 21.7 L [place] % (Auto) 11.3 Eos % (Auto) 0.9 L Baso % (Auto) 0.6 Neut # (Auto) 2900 Lymph # (Auto) 900 L [place] # (Auto) 500 Eos # (Auto) 0 Baso # (Auto) 0 PT 11.8 INR 1.0 APTT 30 Sodium 130 L Potassium 3.7 Chloride 93 L Carbon Dioxide 24 BUN 10 Creatinine 0.60 Estimated GFR > 60.0 BUN/Creatinine Ratio 16.7 Glucose 101 Calcium 9.1 TSH 01/23/19 18:39 WBC RBC Hgb Hct MCV MCH MCHC RDW Plt Count Neut % (Auto) Lymph % (Auto) [place] % (Auto) Eos % (Auto) Baso % (Auto) Neut # (Auto) Lymph # (Auto) [place] # (Auto) Eos # (Auto) Baso # (Auto) PT INR APTT Sodium Potassium Chloride Carbon Dioxide BUN Creatinine Estimated GFR BUN/Creatinine Ratio Glucose Calcium TSH 0.39 L D Assessment & Plan Assessment & Plan narrative: PAF, chronic condition, suboptimally controlled, present on admission Dx w/ AFib 10 years ago. Has been on rhythm control medications without anticoagulation until November of 2018. started on Eliquis, lisinopril, and spironolactone in November of 2018. LVEF 45%, per patient's report (echo not available for review). S/p successful cardioversion on 01/2019; however, short lived. Now back in AFIB. Pertinent medical history of hypothyroidism. Per ED physician, patient was offered to be cardioverted in ED for the 2nd time, however patient declined. 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 Has been on extremely high doses of levothyroxine for years, potentially related to malabsorption, given history of prior gastric bypass surgery - add-on lab FT4 and FT3 - will resume current dose, may need to adjust dose, pending thyroid labs results HFrEF, LVEF 45% (reported by patient, no records available for review), Potentially a sequela of abnormal thyroid function and atrial fibrillation Clinically does not appear hypervolemic. - Monitor for symptoms of hypervolemia / volume excess - Will hold off on resuming metoprolol, lisinopril, and spironolactone immediately, re: on cardizem gtt, w/ soft BP; however, will need components of aforementioned regimen adjusted or resumed prior to discharge - Will try to obtain records of most recent echocardiogram Hypovolemia, acute, present on admission multifactorial... hypermetaboic state, decrease intake - On IVF, re-evaluate need for IV hydration in am S/P fall CT Head... Head CT No midline shift. No intracranial masses. No evidence of acute or subacute hemorrhage. Changes to suggest chronic microvascular ischemia. No fractures. Body of report notes, Tiny lacunar infarcts in the right thalamus. (presumed chronic, however will need to clarify finding in am). Pancytopenia ?, acute, present on admission WBC 4.4 (borderline), RBC 3.94, Plt 94; Hgb 13.2, MCV 102.2; Coags WNL concern for liver injury (abnormal liver enzymes on 01/12) VS a complication of hyperthyroidism VS infection - Monitor platelet count. Currently no active signs of blood loss. - Liver enzymes Abnormal UA on 01/12/19, suggestive of cystits (cx negative) + leukopenia, thrombocytopenia, suprapubic tendernes, weakness, hypovolemia - check UA Risk of malabsorption, given prior history of gastric bypass surgery - Check B12, folate, magnesium result reviewed: magnesium 1.2 (replete w/ 4 gm Mag Sulfate) Code Status: Full Code. Designated sister, Bouchra Coleman, as a surrogate decision maker. VTE: SCDs, on apixaban
[2019-01-24] VITALS (22 sets, daily range): BP systolic 81–134; BP diastolic 42–83; PULSE 81–125; RESP 15–22; TEMP 35.8–37.2; O2SAT 93–100
[2019-01-24] MEDS: APIXABAN 5 MG TABLET PO ×3 (00:25→20:50)
[2019-01-24 03:00] LABS: Free T4, Direct Thyroxine 1.14 ng/dL (0.78-2.19)
[2019-01-24 03:18] LABS: Magnesium 1.2 mg/dL (1.6-2.3)
[2019-01-24] MEDS: SODIUM CHLORIDE 0.9% 1,000 ML 100 ML IV (03:25)
[2019-01-24 04:03] LABS: Free T3, Triiodothyronine Free 1.66 pg/mL (2.77-5.27)
[2019-01-24] MEDS: MAGNESIUM SULFATE 4 GM/100 ML PIGGYBACK IV (04:25)
[2019-01-24 07:00] LABS: Hematocrit 34.5 % (36-46); Hemoglobin 11.5 g/dL (12.0-16.0); Mean Corpuscular HGB Conc 33.3 % (30-36); Mean Corpuscular Hemoglobin 33.9 PG (26-34); Mean Corpuscular Volume 101.8 fL (80-100); Platelet Count 77 X10^3/uL (150-400); Red Blood Cell Count 3.38 X10^6/uL (4.0-5.2); Red Cell Distribution Width 13.3 % (11.6-14.8); White Blood Cell Count 2.2 X10^3/uL (4.5-11.0)
[2019-01-24 07:15] LABS: Alanine Aminotransferase 45 IU/L (9-52); Albumin 2.4 g/dL (3.5-5.0); Albumin Globulin Ratio 0.9 (1.0-2.8); Alkaline Phosphatase 125 U/L (38-126); Aspartate Aminotransferase 77 IU/L (14-36); Bilirubin Total 1.1 mg/dL (0.2-1.3); Blood Urea Nitrogen 7 mg/dL (7-17); Calcium 8.2 mg/dL (8.4-10.2); Carbon Dioxide 24 mmol/L (22-32); Chloride 99 mmol/L (98-107); Estimated Glomerular Filt Rate > 60.0 mL/min (>60); Globulin 2.7 g/dL (1.7-4.1); Glucose 82 mg/dL (80-110); HEMOLYSIS < 15 (0-50); Magnesium 2.5 mg/dL (1.6-2.3); Potassium 3.5 mmol/L (3.4-5.1); Sodium 133 mmol/L (137-145); Total Protein 5.1 g/dL (6.3-8.2)
--- NOTE | 2019-01-24 07:24 | PM.PN.1 ---
Subjective Date Patient Seen: 01/24/19 Interval history: Josy Rojas is a 58-year-old female with a past medical history significant for paroxysmal atrial fibrillation on eliquis, history of obesity status post gastric bypass, hypothyroidism, DDD (thoracic spine), coronary atherosclerosis, and cholelithiasis who presented to the ED out of concern for palpitations. Overnight: The patient could not tolerate a diltiazem gtt due to soft BP's. The patient is resting in bed comfortably. She reports she is very symptomatic of her atrial fibrillation when she is even in mild RVR. She endorses lightheadness, dizziness, and shortness of breath. She is eager to get home to her 2. year-old son. She continues to be in atrial fibrillation with heart rate 90-110's. She currently denies headache, lightheadedness, dizziness, sore throat, cough, shortness of breath, chest pain, abdominal pain, nausea, vomiting, fever, chills, dysuria, diarrhea or constipation. She is voiding and eliminating without difficulty. She is up ambulating without assistance. Exam Vital Signs (past 8 hours): - 01/24/19 00:10 01/24/19 00:32 01/24/19 01:02 Temperature 96.5 F L Pulse Rate 82 87 Respiratory Rate 21 21 Blood Pressure 105/61 112/67 Pulse Oximetry 96 99 01/24/19 02:05 01/24/19 03:02 01/24/19 03:22 Temperature Pulse Rate 84 81 87 Respiratory Rate 21 22 19 Blood Pressure 84/46 L 81/55 L 89/42 L Pulse Oximetry 97 96 97 01/24/19 04:18 01/24/19 05:13 01/24/19 06:37 Temperature Pulse Rate 84 87 87 Respiratory Rate 19 21 19 Blood Pressure 99/51 L 105/49 L 98/55 L Pulse Oximetry 97 95 98 01/24/19 07:00 Temperature 97.6 F Pulse Rate 95 H Respiratory Rate 21 Blood Pressure 118/80 Pulse Oximetry 99 Oxygen Delivery Method Room Air Narrative Exam Narrative: General: Middle-aged thin female lying in bed and in no acute distress, appears older than stated age, well-developed, well-nourished, appropriately interactive. HEENT: Normocephalic, atraumatic. External ears without defect. Pupils equal, round, and reactive to light. Anicteric sclerae, moist conjunctivae, and no lid lag. Oropharynx free of erythema and cobble stoning with moist mucosa. Neck: Supple with full range of motion. No lymphadenopathy or thyromegaly. Cardiovascular: Irregularly irregular without murmurs, rubs, or gallops appreciated. Pulmonary: Clear to auscultation bilaterally without crackles, wheezes, or rhonchi. Normal respiratory effort with no use of accessory muscles. Abdomen: Soft, bowel sounds present, nontender, nondistended. No hepatosplenomegaly or masses appreciated. Extremities: No clubbing, cyanosis, or edema. Skin: Normal temperature, turgor, and texture; no rash, ulcers, or subcutaneous nodules appreciated. Neurological: Cranial nerves grossly intact. Psychiatric: Mildly anxious with normal affect. Alert and oriented to person, place, and time. Objective Labs Result Diagrams: 01/24/19 06:12 01/24/19 06:12 Labs: Laboratory Results - last 24 hr 01/23/19 01/23/19 01/23/19 18:39 18:39 18:39 WBC 4.4 L RBC 3.94 L Hgb 13.2 Hct 40.3 MCV 102.2 H MCH 33.5 MCHC 32.8 RDW 13.6 Plt Count 94 L Neut % (Auto) 65.5 Lymph % (Auto) 21.7 L [place] % (Auto) 11.3 Eos % (Auto) 0.9 L Baso % (Auto) 0.6 Neut # (Auto) 2900 Lymph # (Auto) 900 L [place] # (Auto) 500 Eos # (Auto) 0 Baso # (Auto) 0 PT 11.8 INR 1.0 APTT 30 Sodium 130 L Potassium 3.7 Chloride 93 L Carbon Dioxide 24 BUN 10 Creatinine 0.60 Estimated GFR > 60.0 BUN/Creatinine Ratio 16.7 Glucose 101 Calcium 9.1 Magnesium Total Bilirubin AST ALT Alkaline Phosphatase Total Protein Albumin Globulin Albumin/Globulin Ratio TSH Free T4 Free T3 01/23/19 01/23/19 01/24/19 18:39 18:39 06:12 WBC 2.2 L RBC 3.38 L Hgb 11.5 L Hct 34.5 L MCV 101.8 H MCH 33.9 MCHC 33.3 RDW 13.3 Plt Count 77 L Neut % (Auto) Lymph % (Auto) [place] % (Auto) Eos % (Auto) Baso % (Auto) Neut # (Auto) Lymph # (Auto) [place] # (Auto) Eos # (Auto) Baso # (Auto) PT INR APTT Sodium Potassium Chloride Carbon Dioxide BUN Creatinine Estimated GFR BUN/Creatinine Ratio Glucose Calcium Magnesium 1.2 L Total Bilirubin AST ALT Alkaline Phosphatase Total Protein Albumin Globulin Albumin/Globulin Ratio TSH 0.39 L D Free T4 1.14 Free T3 1.66 L 01/24/19 06:12 WBC RBC Hgb Hct MCV MCH MCHC RDW Plt Count Neut % (Auto) Lymph % (Auto) [place] % (Auto) Eos % (Auto) Baso % (Auto) Neut # (Auto) Lymph # (Auto) [place] # (Auto) Eos # (Auto) Baso # (Auto) PT INR APTT Sodium 133 L Potassium 3.5 Chloride 99 Carbon Dioxide 24 BUN 7 Creatinine 0.50 L Estimated GFR > 60.0 BUN/Creatinine Ratio 14.0 Glucose 82 Calcium 8.2 L Magnesium 2.5 H Total Bilirubin 1.1 AST 77 H ALT 45 Alkaline Phosphatase 125 Total Protein 5.1 L Albumin 2.4 L Globulin 2.7 Albumin/Globulin Ratio 0.9 L TSH Free T4 Free T3 Assessment & Plan Assessment & Plan narrative: Josy Rojas is a 58-year-old female with a past medical history significant for paroxysmal atrial fibrillation on eliquis, history of obesity status post gastric bypass, hypothyroidism, DDD (thoracic spine), coronary atherosclerosis, and cholelithiasis who presented to the ED out of concern for palpitations. 1. Paroxysmal atrial fibrillation with RVR, present on admission. Active. -Diagnosed with atrial fibrillation 10 years ago. Has been on rhythm control medications without anticoagulation until November of 2018. Started on Eliquis, lisinopril, and spironolactone in November of 2018. LVEF 45%, per patient's report (echo not available for review). S/p successful cardioversion on 01/2019; however, short lived. Now back in atrial fibrillation. Pertinent medical history of overcorrected hypothyroidism and high stress level. Per ED physician, patient was offered to be cardioverted in ED for the 2nd time, however patient declined. -Diltiazem IV 20 mg bolus x1 in ED, started on diltiazem gtt effective and rate control, HR in the 90s with drip at 5 mg/hr however it was stopped due to low normal SBP 90's. -Restarted metoprolol succinate at 50 mg twice daily and will adjust based on HR. -Continue apixaban for anticoagulation. 2. Hypothyroidism, chronic, present on admission. Stable. -Recently labile and overcorrected potentially related to malabsorption, given history of prior gastric bypass surgery. -TSH trend:09/11/18 TSH 0.62 and levothyroxine decreased from 400 mcg to 300 mcg --> < 01/12/19 TSH 0.02 and no change in medication regimen--> < 01/23/19, current admission 0.39 and decreased from 300 mcg to 275 mcg. 3. HFrEF, LVEF 45%, chronic, present on admission. Stable. -Reported by patient, no records available for review. -Potentially a sequela of abnormal thyroid function and atrial fibrillation -Clinically does not appear hypervolemic and does not represent acute exacerbation. -Monitor for symptoms of hypervolemia / volume excess -Restarted metoprolol succinate at 50 mg twice daily and will adjust based on HR. Held lisinopril and spironolactone. -Will try to obtain records of most recent echocardiogram 4. Acute hypovolemia, present on admission. Resolved. -Multifactorial and due to hypermetabolic state and decrease fluid intake. -Continued IV fluids until adequately hydrated. 5. Recent ground level fall. -CT brain did not demonstrate any acute intracranial abnormalities. Chronic microvascular ischemia with tiny lacunar infarcts in the right thalamus. -Control underlying cause or atrial fibrillation. 6. Pancytopenia, acute, present on admission. -Platelets truly low but other cell lineages seem to be hemodilutional. -WBC 4.4 (borderline), Plt 94; Hgb 13.2, MCV 102.2; Coags WNL. -Concern for liver disease i.e. fatty liver vs. a complication of hyperthyroidism vs. infection. -Monitor platelet count. Currently no active signs of blood loss. 7. Risk of malabsorption, given prior history of gastric bypass surgery. -B12 and folate within normal limits. Magnesium slightly low at 1.2 and received 4 g IV Mag sulfate x1. Disposition: Patient will discharge once heart rate controlled and aymptomatic.
[2019-01-24 07:42] LABS: Neutrophils Absolute Manual 1100 /uL (3000-5900); RBC Morphology Normal Morphology; Total Cells Counted 50
[2019-01-24 08:20] LABS: Folate 6.8 ng/mL (2.76-20.0); Vitamin B12 562 pg/mL (239-931)
--- NOTE | 2019-01-24 08:46 | P.DS_ITS ---
History of Present Illness Date Patient Seen: 01/23/19 Chief complaint: Afib Narrative: Written by Suzanne SANTOS: The patient is a 58-year-old female with PMH of PAF, chronic AC w/ eliquis, h/o obesity (s/p gastric bypass), hypothyroidism, DDD (thoracic spine), coronary atherosclerosis, and cholelithiasis. Denies prior history of hypertension, diabetes, TIA/CVA, thrombosis, and GI bleed. Patient presented to the ED out of concern for palpitations. Symptom specifically noted after patient has sustained a ground level fall. A fall has taken place while patient was in an upright position. She felt profound weakness and was unable to sustain self upright, consequently dropping to the ground. Landed onto her tailbone. Denies complete loss of consciousness. Denies injury to the head. Given degree of profound weakness, patient was unable to get up on her own. She was down for less than 30 min. She was able to call a friend for help. Prior to the event reports feeling dizzy (notes room spinning) and lightheaded (notes feeling faint). Palpitations came about after the fall and were associated with shortness of breath. Denies concurrent chest, neck or jaw pain, paresthesia of extremities, headache, change in vision, or loss of bowel or bladder control. Denies symptoms of post-ictal state. patient does not check her blood pressure at home. Recently has been experiencing dizziness with position change; however, no syncopal events with exception of the event noted above. Also, reports some degree of BLE edema, but not excessive. Denies exertional dyspnea. Patient has an underlying history of paroxysmal atrial fibrillation. Initially diagnosed 10 years ago by report. Patient is from [place], relocated to local area from [place] in the last 3-4 months. Previously atrial fibrillation was managed with oral metoprolol (not known if short or long acting version). Patient was not anti-coagulated. Previously followed with a enterprise resource planner in [place], however unable to recall his name. Until recently, atrial fibrillation was managed with pharmacotherapy, denies prior cardioversions or ablations. Recently patient having increased frequency of arrhythmia. Notes having an echo in in November of 2018, which revealed LVEF of 45%. As a result, in addition to her metoprolol, she was started on lisinopril 2.5 mg QD, spironolactone, and Eliquis 5 mg QD. On 01/12/2019 patient underwent a successful direct current cardioversion. Currently, she is not managed by cardiology. However, she does have a pending appointment with cardiology in July of 2019 at [facility]. Reports a history of a stress test 20 years ago. Patient has a longstanding history of hypothyroidism. On thyroid medication since young adulthood, for at least 20 years. Previously on 400 mcg levothyroxine, reports a dose decrease to 300 mcg in 2017. review of records shows patient's TSH to be less than 0.02 on 01/12/19. In addition, patient reports having stressful life circumstances for the past 1 year. She reports the of her in brother, in addition to other domestic stressors about which the patient did not provide any further details. Reports loss of 100 lb in the past 12-18 months. Notes diminished appetite. Notes to being able to maintain adequate levels of hydration. Notes some degree of nutritional malabsorption due to prior history gastric bypass surgery, reports taking B1, B12, and magnesium supplements. Discharge Providers Date of admission: 01/23/19 20:27 Discharge Date: 01/25/19 Discharge provider: Lorena Cortez DO Summary Discharge Diagnosis: 1. Paroxysmal atrial fibrillation with RVR, present on admission. Improved. 2. Hypothyroidism, chronic, present on admission. Stable. 3. HFrEF, LVEF 45%, chronic, present on admission. Stable. 4. Acute hypovolemia, present on admission. Resolved. 5. Recent ground level fall. 6. Pancytopenia, acute, present on admission. Resolving. 7. Risk of malabsorption, given prior history of gastric bypass surgery. Hospital Course: Josy Rojas is a 58-year-old female with a past medical history significant for paroxysmal atrial fibrillation on eliquis, history of obesity status post gastric bypass, hypothyroidism, DDD (thoracic spine), coronary atherosclerosis, and cholelithiasis who presented to the ED out of concern for palpitations. 1. Paroxysmal atrial fibrillation with RVR, present on admission. Improved. -Diagnosed with atrial fibrillation 10 years ago. Has been on rhythm control medications without anticoagulation until November of 2018. Started on Eliquis, lisinopril, and spironolactone in November of 2018. LVEF 45%, per patient's report (echo not available for review). S/p successful cardioversion on 01/2019; however, short lived. Now back in atrial fibrillation. Pertinent medical history of overcorrected hypothyroidism, electrolyte deficiencies, and high stress level. Per ED physician, patient was offered to be cardioverted in ED for the 2nd time, however patient declined. -Diltiazem IV 20 mg bolus x1 in ED, started on diltiazem gtt effective and rate control, HR in the 90s with drip at 5 mg/hr, however, it was stopped due to low normal SBP 90's. -Continued metoprolol succinate which was increased to 100 mg twice daily. HR controlled at 90's with rest. Asymptomatic. Restarted lisinopril 2.5 mg. Held spironolactone as patient low normal BP and CHF mild with reported EF 45%. Patient would likely benefit from continued rate medication adjustment but is adamant to be discharged and has a follow-up plan in place. -Continued apixaban for anticoagulation. 2. Hypothyroidism, chronic, present on admission. Stable. -Recently labile and over-corrected potentially related to malabsorption, given history of prior gastric bypass surgery. -TSH trend:09/11/18 TSH 0.62 and levothyroxine decreased from 400 mcg to 300 mcg --> < 01/12/19 TSH 0.02 and no change in medication regimen--> < 01/23/19, current admission 0.39 and decreased from 300 mcg to 275 mcg. 3. HFrEF, LVEF 45%, chronic, present on admission. Stable. -Reported by patient, no records available for review. Potentially a sequela of abnormal thyroid function and atrial fibrillation. -Clinically did not appear hypervolemic and does not represent acute exacerbation. Monitored for symptoms of hypervolemia / volume excess. -Continued metoprolol succinate which was increased to 100 mg twice daily. HR controlled at 90's with rest. Asymptomatic. Restarted lisinopril 2.5 mg. Held spironolactone as patient low normal BP and CHF mild with reported EF 45%. -Unable to obtain records of most recent echocardiogram. 4. Acute hypovolemia, present on admission. Resolved. -Multifactorial and due to hypermetabolic state and decreased fluid intake. -Continued IV fluids until adequately hydrated. 5. Recent ground level fall. -CT brain did not demonstrate any acute intracranial abnormalities. Chronic microvascular ischemia with tiny lacunar infarcts in the right thalamus. -Control underlying cause or atrial fibrillation. 6. Pancytopenia, acute, present on admission. Resolving. -Platelets truly low but other cell lineages seem to be hemodilutional. -WBC 4.4 (borderline), Plt 94; Hgb 13.2, MCV 102.2; Coags WNL. -Concern for liver disease i.e. fatty liver vs. a complication of hyperthyroidism vs. infection. -Monitored platelet count. Currently no active signs of blood loss. 7. Possible malabsorption, present on admission. Stable. -Given prior history of gastric bypass surgery. -B12 and folate within normal limits. Magnesium slightly low at 1.2 and received 4 g IV Mag sulfate x1. -Recommended sales associate referral. Status at Discharge Functional status at discharge: independent ambulation Overall status at discharge: patient is progressing back to baseline Exam Vital Signs (past 8 hours): - 01/24/19 01:02 01/24/19 02:05 01/24/19 03:02 Temperature Pulse Rate 87 84 81 Respiratory Rate 21 21 22 Blood Pressure 112/67 84/46 L 81/55 L Pulse Oximetry 99 97 96 01/24/19 03:22 01/24/19 04:18 01/24/19 05:13 Temperature Pulse Rate 87 84 87 Respiratory Rate 19 19 21 Blood Pressure 89/42 L 99/51 L 105/49 L Pulse Oximetry 97 97 95 01/24/19 06:37 01/24/19 07:00 01/24/19 08:00 Temperature 97.6 F 97.6 F Pulse Rate 87 95 H 97 H Respiratory Rate 19 21 20 Blood Pressure 98/55 L 118/80 117/75 Pulse Oximetry 98 99 99 Oxygen Delivery Method Room Air Narrative Exam Narrative: General: Middle-aged female lying in bed and in no acute distress, appears older than stated age, well-developed, well-nourished, appropriately interactive. HEENT: Normocephalic, atraumatic. External ears without defect. Pupils equal, round, and reactive to light. Anicteric sclerae, moist conjunctivae, and no lid lag. Mild erythema posterior pharynx. Rosacea present on cheeks. Neck: Supple with full range of motion. No JVD. No lymphadenopathy or thyromegaly. Cardiovascular: Irregularly irregular without murmurs, rubs, or gallops appreciated. Pulmonary: Clear to auscultation bilaterally without crackles, wheezes, or rhonchi. Normal respiratory effort with no use of accessory muscles. Abdomen: Soft, bowel sounds present, nontender, nondistended. No hepatosplenomegaly or masses appreciated. Extremities: No clubbing, cyanosis, or edema. Skin: Normal temperature, turgor, and texture; no rash, ulcers, or subcutaneous nodules appreciated. Neurological: Cranial nerves grossly intact. Psychiatric: Mildly anxious with flat affect. Alert and oriented to person, place, and time. Objective Labs Result Diagrams: 01/25/19 04:32 01/25/19 04:32 Labs: Laboratory Results - last 24 hr 01/23/19 01/23/19 01/23/19 18:39 18:39 18:39 WBC 4.4 L RBC 3.94 L Hgb 13.2 Hct 40.3 MCV 102.2 H MCH 33.5 MCHC 32.8 RDW 13.6 Plt Count 94 L Neut % (Auto) 65.5 Lymph % (Auto) 21.7 L [place] % (Auto) 11.3 Eos % (Auto) 0.9 L Baso % (Auto) 0.6 Neut # (Auto) 2900 Lymph # (Auto) 900 L [place] # (Auto) 500 Eos # (Auto) 0 Baso # (Auto) 0 Total Counted Seg Neutrophils % Band Neutrophils % Lymphocytes % (Manual) Monocytes % (Manual) Eosinophils % (Manual) Neutrophils # (Manual) RBC Morphology PT 11.8 INR 1.0 APTT 30 Sodium 130 L Potassium 3.7 Chloride 93 L Carbon Dioxide 24 BUN 10 Creatinine 0.60 Estimated GFR > 60.0 BUN/Creatinine Ratio 16.7 Glucose 101 Calcium 9.1 Magnesium Total Bilirubin AST ALT Alkaline Phosphatase Total Protein Albumin Globulin Albumin/Globulin Ratio Vitamin B12 Folate TSH Free T4 Free T3 01/23/19 01/23/19 01/24/19 18:39 18:39 06:12 WBC 2.2 L RBC 3.38 L Hgb 11.5 L Hct 34.5 L MCV 101.8 H MCH 33.9 MCHC 33.3 RDW 13.3 Plt Count 77 L Neut % (Auto) Lymph % (Auto) [place] % (Auto) Eos % (Auto) Baso % (Auto) Neut # (Auto) Lymph # (Auto) [place] # (Auto) Eos # (Auto) Baso # (Auto) Total Counted 50 Seg Neutrophils % 48.0 Band Neutrophils % 2.0 L Lymphocytes % (Manual) 42.0 Monocytes % (Manual) 6.0 Eosinophils % (Manual) 2.0 Neutrophils # (Manual) 1100 L RBC Morphology Normal morphology PT INR APTT Sodium Potassium Chloride Carbon Dioxide BUN Creatinine Estimated GFR BUN/Creatinine Ratio Glucose Calcium Magnesium 1.2 L Total Bilirubin AST ALT Alkaline Phosphatase Total Protein Albumin Globulin Albumin/Globulin Ratio Vitamin B12 Folate TSH 0.39 L D Free T4 1.14 Free T3 1.66 L 01/24/19 06:12 WBC RBC Hgb Hct MCV MCH MCHC RDW Plt Count Neut % (Auto) Lymph % (Auto) [place] % (Auto) Eos % (Auto) Baso % (Auto) Neut # (Auto) Lymph # (Auto) [place] # (Auto) Eos # (Auto) Baso # (Auto) Total Counted Seg Neutrophils % Band Neutrophils % Lymphocytes % (Manual) Monocytes % (Manual) Eosinophils % (Manual) Neutrophils # (Manual) RBC Morphology PT INR APTT Sodium 133 L Potassium 3.5 Chloride 99 Carbon Dioxide 24 BUN 7 Creatinine 0.50 L Estimated GFR > 60.0 BUN/Creatinine Ratio 14.0 Glucose 82 Calcium 8.2 L Magnesium 2.5 H Total Bilirubin 1.1 AST 77 H ALT 45 Alkaline Phosphatase 125 Total Protein 5.1 L Albumin 2.4 L Globulin 2.7 Albumin/Globulin Ratio 0.9 L Vitamin B12 562 Folate 6.8 TSH Free T4 Free T3 Discharge Plan Discharge Plan Patient Disposition: Home Discharge comment: You are being discharged home. Your metoprolol succinate has been increased to 100 mg twice daily and depending on your atrial fibrillation, heart rate, and symptoms this may need to continue to be adjusted in the future. Your spironolactone was stopped due to low normal blood pressure. You may need to be on diuretic (such as furosemide or torsemide) outpatient and you may discuss this with your PCP. Your levothyroxine has been decreased to 275 mcg daily. Please follow-up with your PCP, Dr. Espinal, in the next 1 week regarding your hospitalization and symptomatic atrial fibrillation. Blood work has been ordered to check your electrolytes prior to this appointment. You may be having issues with malabsorption and recommend seeing a sales associate. Try to limit the stress in your life and recommend counseling to establish healthy coping mechanisms. You also need to make a sooner appointment with your enterprise resource planner to discuss further management of your atrial fibrillation including medication vs cardiac ablation and congestive heart failure. Please see a medical professional immediately if you become significantly symptomatic of your atrial fibrillation, your heart rate is sustaining at 130 or greater at rest with or without symptoms, or your blood pressure drops below 90/60. Discharge Med Rec/Prescriptions Prescriptions: Continued Doxycycline 1 dose PO DIRECTED PRN (Reason: rosacea) RF: 0 lisinopril 2.5 mg tablet 2.5 mg PO DAILY RF: 0 apixaban 5 mg tablet 5 mg PO BID RF: 0 Changed levothyroxine 200 mcg Tablet 275 mcg PO DAILY 30 Days Qty: 0 RF: 0 metoprolol succinate 25 mg tablet extended release 24 hr 100 mg PO BID 30 Days Qty: 240 RF: 0 Discontinued spironolactone 25 mg tablet 25 mg PO DAILY RF: 0 Other Ambulatory Orders: Basic Metabolic Panel (Routine) Timeframe: 1 Week Location: Laboratory Ordered By: Lorena Cortez Magnesium (Routine) Timeframe: 1 Week Location: Laboratory Ordered By: Lorena Cortez Follow up/Referrals: Vladimir Espinal MD [Physician] - 1 Week Provider Discharge Instructions Diet: Low-fat, Low-sodium and Low-cholesterol Activity: Activity as tolerated Visit Report/Discharge Packet Instructions: DI for Heart Failure, DI for Atrial Fibrillation, How to Prevent Falls, How to Keep Track of Your Weight When You Have Heart Failure, DI for Dizziness-Nonvertigo, Metoprolol (By mouth) Discharge Data Attending Provider: Suzanne Quinteros Admit Date/Time: 01/23/19 20:27
[2019-01-24] MEDS: LEVOTHYROXINE 100 MCG TABLET 200 MCG PO (09:19)
[2019-01-24] MEDS: LEVOTHYROXINE 75 MCG TABLET PO (09:19)
[2019-01-24] MEDS: METOPROLOL ER 50 MG TABLET PO ×2 (09:19→14:08)
[2019-01-24] MEDS: POTASSIUM CHLORIDE 20 MEQ TAB 40 MEQ PO (09:23)
--- NOTE | 2019-01-24 10:18 | PC.NURSE ---
Addendum entered by Pio Helton R.N. 01/24/19 14:04: Dr. Cortez on rounds. Reported pt continues with resting HRs 90s-120s and up to 140 with activity. Reported BP 101/80. VORB for metoprolol succ 50 mg PO now x1 dose. Will monitor. Original Note: Addendum entered by Pio Helton R.N. 01/24/19 10:35: Report assessment findings to Dr. Cortez via telephone. Reported unable to collect UA. Dr. Cortez states she will round and discuss plan of care with pt. Original Note: 09- Pt states need to have BM. Initially declining use of BSC and insisting on walking to BR. Resting HR 120s Afib. Educated pt to need for surveillance monitor while OOB and explained that monitor will not reach BR. Pt reluctantly up to BSC. Attempted to place hat to obtain urine spec per order. Pt declined use of hat stating BM would contaminate urine. Pt transferred from bed to BSC with steady gait. While up to BSC, pt HR sustained between 150-170s, Afib. Pt reports dizziness, lightheadedness, and mild diaphoresis. Assisted back to bed. BP 140/90. HR decreases to 120s after a few minutes of rest. Pt continues to report palpitations but denies chest pain, chest pressure, shortness of breath. Placed call light in easy reach. Pt agrees to use call light and wait for assistance before getting OOB and notify for increase in symptoms.
--- NOTE | 2019-01-24 11:19 | CM.DANOTE ---
DCP/Assessment: Reviewed chart. Patient is a 58yr old female admitted to I. with AFIB. Patient currently OBS status. Primary payor is 1)[facility] Out of [facility]. PCP is [facility]. Met with patient explained CM/SW role. Patient alert and oriented at time of visit. Patient reports that she is completely I with all ADL's. Patient has adopted 2yr old son whom she is anxious to return home to. Patient reports that her friend/Philip Coleman ph# [phone] is taking care of her son during hospitalization. Patient drove to . and hopes to leave today. Patient will need priority boarding pass for sailing/return to [place]. Patient does not anticipate any d/c planning needs. RN notified about priority boarding. P: Home when medically stable. VLADIMIR Root Discharge Planning/Care Management Advanced directive, confirm from FAMILY Start: 01/23/19 21:40 Freq: Q24H Status: Active Protocol: Document 01/24/19 00:44 VLA (Rec: 01/24/19 00:44 VLA [id number]) Advance Directive, confirm on record Time 00:44 Person contacted None available Copy received No CM Discharge Assessment Start: 01/24/19 11:05 Freq: Status: Active Protocol: Document 01/24/19 11:05 KJS (Rec: 01/24/19 11:19 [id number]) Discharge Planning Assessment Assigned Sort Line Worker VLADIMIR Root Contact Information Bouchra Coleman (sister) Advance Directives? No History Provided By Patient Medical Record Prior Living Arrangements House Household Members children friend(s) Type of transporation used prior to Drives own vehicle admit Independent with ADL's Yes Is patient alert and oriented? Yes Caregiver for Another Yes: Patient has adopted 2yr old son. Barriers to Discharge No Discharge Plan Home Transportation Arrangement Patient has automobile at [facility] parking lot. Referrals Initiated None needed Whiteboard Updated in Patient Room with Yes name and ext. # of Sort Line Worker Review Status In Process Please Provide Date Initial DC 01/24/19 Assessment Was Performed Next Review Type Continued Stay Review
[2019-01-24] MEDS: METOPROLOL ER 50 MG TABLET 100 MG PO (17:44)
[2019-01-25 00:37] VITALS: BP 99/65; PULSE 109; RESP 16; TEMP 36.3; O2SAT 100
[2019-01-25 05:05] VITALS: BP 132/57; PULSE 117; RESP 17; TEMP 36.3; O2SAT 91
[2019-01-25 05:08] LABS: Add Manual Diff / Slide Review NO; Basophils Absolute Auto 0 /uL (0-100); Basophils Percent Auto 1.1 % (0-2); Eosinophils Absolute Auto 100 /uL (0-450); Eosinophils Percent Auto 2.4 % (2-4); Hematocrit 36.3 % (36-46); Hemoglobin 12.3 g/dL (12.0-16.0); Lymphocytes Absolute Auto 900 /uL (1100-4500); Lymphocytes Percent Auto 31.2 % (25-40); Mean Corpuscular HGB Conc 33.8 % (30-36); Mean Corpuscular Hemoglobin 33.9 PG (26-34); Mean Corpuscular Volume 100.4 fL (80-100); Monocytes Absolute Auto 400 /uL (0-900); Monocytes Percent Auto 12.5 % (3-14); Neutrophils Absolute Auto 1500 /uL (1500-7000); Neutrophils Percent Auto 52.8 % (50-75); Platelet Count 98 X10^3/uL (150-400); Red Blood Cell Count 3.62 X10^6/uL (4.0-5.2); Red Cell Distribution Width 13.4 % (11.6-14.8); White Blood Cell Count 2.8 X10^3/uL (4.5-11.0)
[2019-01-25 05:23] LABS: Alanine Aminotransferase 46 IU/L (9-52); Albumin 2.5 g/dL (3.5-5.0); Albumin Globulin Ratio 0.9 (1.0-2.8); Alkaline Phosphatase 126 U/L (38-126); Aspartate Aminotransferase 74 IU/L (14-36); Bilirubin Total 0.9 mg/dL (0.2-1.3); Blood Urea Nitrogen 5 mg/dL (7-17); Calcium 8.5 mg/dL (8.4-10.2); Carbon Dioxide 27 mmol/L (22-32); Chloride 101 mmol/L (98-107); Estimated Glomerular Filt Rate > 60.0 mL/min (>60); Globulin 2.7 g/dL (1.7-4.1); Glucose 104 mg/dL (80-110); HEMOLYSIS < 15 (0-50); Magnesium 1.7 mg/dL (1.6-2.3); Potassium 4.1 mmol/L (3.4-5.1); Sodium 134 mmol/L (137-145); Total Protein 5.2 g/dL (6.3-8.2)
[2019-01-25 05:59] LABS: Procalcitonin 0.06 ng/mL (<0.5)
[2019-01-25] MEDS: LEVOTHYROXINE 75 MCG TABLET PO (06:12)
[2019-01-25] MEDS: LEVOTHYROXINE 100 MCG TABLET 200 MCG PO (06:12)
[2019-01-25 07:54] VITALS: BP 104/73; PULSE 105; RESP 14; TEMP 36.4; O2SAT 100
[2019-01-25] MEDS: METOPROLOL ER 50 MG TABLET 100 MG PO (08:44)
[2019-01-25] MEDS: MAGNESIUM SULFATE 2 GM/50 ML PIGGYBACK IV (08:45)
[2019-01-25] MEDS: APIXABAN 5 MG TABLET PO (08:45)
--- NOTE | 2019-01-25 10:35 | PC.NURSE ---
Am shift Pt is adamant that she will be d/c home today, with or without order. Tele is in place and she maintains 80-100 at rest with increased HR up to 120 with activity. Denies and lightheadedness with activity, enc. Sitting up at the edge of the bed prior to ambulation. No CP no dizziness. Requesting priority boarding pass for 1350 maged to [place].
--- NOTE | 2019-01-25 10:58 | CM.DPC ---
DCP Discharge Home Per MD, pt is medically stable to d/c home today back to [place] with follow up appointments recommended with PCP within the week and Accounting Consultant soon rather than her currently scheduled Sept follow up appointment. No identified barriers to discharge. Plan: Patient to d/c home to [place] today via POV and no SW needs at this time. VLADIMIR William
== END 2019-01-25 13:00 | disposition home or self-care (01) ==
LOC: ED 20:06 → ICU 01-24 07:32
PROVIDERS: Internal Medicine; Admitting Provider Nurse Practitioner Gerontology; Emergency Provider Emergency Medicine; Visit Provider Nurse Practitioner Gerontology
DX: I48.0 Paroxysmal atrial fibrillation (principal); I49.9 Cardiac arrhythmia, unspecified; E03.9 Hypothyroidism, unspecified; E86.1 Hypovolemia; W18.30XA Fall on same level, unspecified, initial encounter; D61.818 Other pancytopenia; Z79.01 Long term (current) use of anticoagulants; K46.9 Unspecified abdominal hernia without obstruction or gangrene; Z98.84 Bariatric surgery status; I25.10 Atherosclerotic heart disease of native coronary artery without angina pectoris; M51.34 Other intervertebral disc degeneration, thoracic region
CPT/HCPCS: 36415; 36591; 70450; 80048; 80053; 82607; 82746; 83735; 84145; 84439; 84443; 84481; 85025; 85610; 85730; 93005; 96361; 96365; 99283; 99285; G0378; J3475

== ENCOUNTER 2019-03-04 15:03 | Emergency (ER) | payer BC, SELFPAY ==
[2019-01-23 21:27] VITALS: BMI 28.4
[2019-03-04] VITALS (7 sets, daily range): BP systolic 104–152; BP diastolic 58–88; PULSE 83–108; RESP 17–20; TEMP 37; O2SAT 94–100; BMI 27.5
--- NOTE | 2019-03-04 | DI.CT.S_ITS ---
PROCEDURE: CT ABDOMEN PELVIS W CON INDICATIONS: abdominal distention, vomiting, history of Rubio-en-Y TECHNIQUE: After the administration of oral and intravenous contrast, 5 mm thick sections acquired from the diaphragms to the symphysis. 5 mm thick coronal and sagittal reformats were performed. For radiation dose reduction, the following was used: automated exposure control, adjustment of mA and/or kV according to patient size. COMPARISON: None. FINDINGS: Image quality: Excellent. ABDOMEN: Lung bases: Small left pleural effusion. Solid organs: Severe hepatic steatosis with relative sparing in the right hepatic lobe anteriorly. Gallbladder demonstrates high density foci within its lumen. Biliary system is non-dilated. Pancreas enhances normally. Spleen is normal in size and enhancement. No adrenal nodules. Kidneys are normal in size and enhancement, without hydronephrosis. Peritoneum and bowel: Gastric bypass has been performed. Stomach, small bowel, and colon loops are normal in caliber and wall thickness. Small amount of ascites. Normal appendix. Nodes and vessels: No retroperitoneal or mesenteric adenopathy. Aorta and inferior vena cava are normal in caliber. Miscellaneous: No ventral hernias. PELVIS: Genitourinary: Bladder wall thickness is normal. Miscellaneous: No inguinal hernias or adenopathy. Bones: No suspicious bony lesions. No vertebral body compression fractures. IMPRESSION: 1. Small amount of ascites. No evidence of abscess. 2. Severe hepatic steatosis. 3. Cholelithiasis. 4. Normal appendix. 5. Small left pleural effusion. Dictated by: Miles Blue M.D. on 03/04/2019 at 20:57 Approved by: Miles Blue M.D. on 03/04/2019 at 21:00
--- NOTE | 2019-03-04 18:24 | ED_ITS ---
HPI - Nausea/Vomiting/Diarrhea General Chief complaint: Nausea/Vomiting/Diarrhea Stated complaint: NOT EATING, KEEPING ANYTHING DOWN Time Seen by Provider: 03/04/19 18:03 Source: patient Mode of arrival: ambulatory Limitations: no limitations History of Present Illness HPI Narrative: Patient is a 59-year-old female with a history of hypothyroidism, hypertension, paroxysmal atrial fibrillation. Is on apixaban and lisinopril and metoprolol and Synthroid. She states that 30 years ago she underwent a Rubio-en-Y gastric bypass. Has had no complications since then. Over the past 4 days has had worsening vomiting. She states that it is not associated with much nausea. She states that initially started out with vomiting food but has progressed to vomiting liquids as well. She is not even able to tolerate water or Ensure. Denies any fevers. States that she is having some abdominal distension. Still having bowel movements. No urinary symptoms. no chest pain or shortness of breath. Is not feeling any palpitations. Has not been able to take her medications over the past couple days because of the symptoms. Related Data Home Medications Medication Instructions Recorded Confirmed Doxycycline 1 dose PO DIRECTED PRN 09/11/18 01/24/19 apixaban 5 mg PO BID 01/12/19 01/24/19 lisinopril 2.5 mg PO DAILY 01/12/19 01/24/19 Allergies Allergy/AdvReac Type Severity Reaction Status Date / Time No Known Drug Allergies Allergy Verified 03/04/19 15:13 Review of Systems Constitutional Denies fatigue, Denies fever(s) and Denies headache(s) Eyes Denies change in vision ENT Ears, Nose, Mouth, and Throat: Denies vertigo, Denies headache(s) and Denies sore throat Cardiovascular Denies chest pain and Denies dyspnea Respiratory Denies dyspnea Gastrointestinal Gastrointestinal: Denies abdominal pain, Reports bloating, Denies change in stool character, Denies diarrhea, Denies loose stools and Reports vomiting Genitourinary Denies dysuria and Denies vaginal discharge Musculoskeletal Denies myalgias and Denies arthralgias Integumentary/Breasts Denies rash Neurologic Denies behavioral changes, Denies vertigo and Denies headache(s) Psychiatric Denies behavioral changes Endocrine Denies fatigue, Denies polydipsia and Denies polyuria Hematologic/Lymphatic Comments: On apixaban Allergic/Immunologic Denies urticaria [facility] Medical History Abdominal hernia (Acute) Atrial fibrillation (Acute) Chronic anticoagulation (Acute) History of cardioversion (Acute) Hypothyroid (Acute) Rosacea (Acute) Surgical History Hx of gastric bypass (Acute) Family History (Updated 01/24/19 @ 02:07 by DANIELLE Leyva) Mother No known health problems Father No known health problems Social History household members: children and friend(s) Smoking Status: Never smoker Family History Mother No known health problems Father No known health problems Social History household members: children and friend(s) Smoking Status: Never smoker Exam Initial Vital Signs Initial Vital Signs: Vital Signs Temperature 98.6 F 03/04/19 15:08 Pulse Rate 108 H 03/04/19 15:08 Respiratory Rate 20 03/04/19 15:08 Blood Pressure 135/84 03/04/19 15:08 Pulse Oximetry 99 03/04/19 15:08 Const General: cooperative, well developed, well groomed and No acute distress Orientation: alert, awake and oriented x3 HENMT Head: normal to inspection and normocephalic Ears: hearing grossly normal bilaterally Nose: external nose normal Face and sinus: normal facial exam Resp Effort & Inspection: normal respiratory effort Auscultation: clear to auscultation bilaterally Cardio Rate: tachycardic Rhythm: regular rhythm Pulses: radial pulses present GI Inspection: distended Palpation: soft, No firm, No guarding and tender (Generalized tenderness) Percussion: tympanic to percussion Auscultation: normal bowel sounds Back/Spine/Pelvis Back: No CVA tenderness Skin Lesions: no lesions Rashes: no rashes Neuro General: alert, awake and oriented x3 Cognition: normal cognition Speech: speech normal Motor: muscle tone normal throughout Sensory Exam: no sensory deficits noted Extrem General: normal exam except as noted and edema (Bilateral feet) Psych Appearance: grossly normal and well kempt Scores GCS [place] coma scale eye opening: Spontaneous Tramaine coma scale verbal response: Orientated Tramaine coma scale motor response: Obey commands Tramaine coma scale total score: 15 Course Orders Ordered: ED Orders 03/04/19 18:19 Amylase Stat Complete Blood Count AUTO DIFF Stat Comprehensive Metabolic Panel Stat Lipase Stat 03/04/19 18:36 CT abdomen pelvis w con Stat 03/04/19 18:37 XR chest 1V Stat EKG-12 Lead Stat 03/04/19 21:05 Lactate (Lactic Acid) Stat 03/04/19 22:09 US abdomen limited Stat Discontinued Medications Sodium Chloride (Normal Saline 0.9%) 1,000 mls @ 1,000 mls/hr IV BOLUS ONE Stop: 03/04/19 20:20 Last Infusion: 03/04/19 20:35 Dose: 0 mls/hr Admin: 03/04/19 19:22 Dose: 1,000 mls/hr Ondansetron HCl (Zofran Odt) 4 mg SL NOW ONE Stop: 03/04/19 17:36 Last Admin: 03/04/19 19:18 Dose: Not Given Ondansetron HCl (Zofran) 4 mg IV NOW ONE Stop: 03/04/19 19:19 Last Admin: 03/04/19 19:22 Dose: 4 mg Vital Signs - 8 hr 03/04/19 18:10 03/04/19 19:55 03/04/19 20:54 Pulse Rate 86 98 H Respiratory Rate Blood Pressure [Right Arm] 152/88 H 130/79 134/80 Pulse Oximetry 100 99 03/04/19 21:30 03/04/19 22:44 03/04/19 23:46 Pulse Rate 88 85 83 Respiratory Rate 17 Blood Pressure [Right Arm] 109/68 104/58 L 104/67 Pulse Oximetry 94 98 100 MDM - Nausea/Vomiting/Diarrhea Medical Records Attestation: I reviewed the patient's medical records. Lab Data Attestation: I reviewed the patient's lab results. Result diagrams: 03/04/19 18:19 03/04/19 18:19 Lab Results 03/04/19 03/04/19 03/04/19 Range/Units 18:19 18:19 21:05 WBC 4.4 L (4.5-11.0) X10^3/uL RBC 3.63 L (4.0-5.2) X10^6/uL Hgb 12.1 (12.0-16.0) g/dL Hct 36.4 (36-46) % MCV 100.1 H (80-100) fL MCH 33.2 (26-34) PG MCHC 33.2 (30-36) % RDW 15.7 H (11.6-14.8) % Plt Count 128 L (150-400) X10^3/uL Neut % (Auto) 63.4 (50-75) % Lymph % (Auto) 24.2 L (25-40) % Beckham % (Auto) 11.3 (3-14) % Eos % (Auto) 0.2 L (2-4) % Baso % (Auto) 0.9 (0-2) % Neut # (Auto) 2800 (8827-2337) /uL Lymph # (Auto) 1100 (8560-3193) /uL Beckham # (Auto) 500 (0-900) /uL Eos # (Auto) 0 (0-450) /uL Baso # (Auto) 0 (0-100) /uL PT (10.1-12.7) SECONDS INR (0.9-1.3) APTT (26.4-36.2) SECONDS Sodium 127 L (137-145) mmol/L Potassium 3.5 (3.4-5.1) mmol/L Chloride 91 L (98-107) mmol/L Carbon Dioxide 28 (22-32) mmol/L BUN 4 L (7-17) mg/dL Creatinine 0.60 (0.52-1.04) mg/dL Estimated GFR > 60.0 (>60) mL/min BUN/Creatinine Ratio 6.7 (6-22) Glucose 108 (80-110) mg/dL Lactate 1.3 (0.7-2.1) mmol/L Calcium 8.0 L (8.4-10.2) mg/dL Phosphorus (2.8-4.1) mg/dL Magnesium (1.6-2.3) mg/dL Total Bilirubin 3.7 H (0.2-1.3) mg/dL AST 144 H (14-36) IU/L ALT 60 H (9-52) IU/L Alkaline Phosphatase 256 H (38-126) U/L Troponin I (0.01-0.034) ng/mL B-Natriuretic Peptide (<100) Total Protein 6.1 L (6.3-8.2) g/dL Albumin 2.9 L (3.5-5.0) g/dL Globulin 3.2 (1.7-4.1) g/dL Albumin/Globulin Ratio 0.9 L (1.0-2.8) Amylase < 30 L (30-110) U/L Lipase 27 (23-300) U/L Procalcitonin (<0.5) ng/mL 03/04/19 03/04/19 03/04/19 Range/Units Unknown Unknown Unknown WBC (4.5-11.0) X10^3/uL RBC (4.0-5.2) X10^6/uL Hgb (12.0-16.0) g/dL Hct (36-46) % MCV (80-100) fL MCH (26-34) PG MCHC (30-36) % RDW (11.6-14.8) % Plt Count (150-400) X10^3/uL Neut % (Auto) (50-75) % Lymph % (Auto) (25-40) % Beckham % (Auto) (3-14) % Eos % (Auto) (2-4) % Baso % (Auto) (0-2) % Neut # (Auto) (4826-9840) /uL Lymph # (Auto) (6840-2900) /uL Beckham # (Auto) (0-900) /uL Eos # (Auto) (0-450) /uL Baso # (Auto) (0-100) /uL PT 14.1 H (10.1-12.7) SECONDS INR 1.2 (0.9-1.3) APTT 31 (26.4-36.2) SECONDS Sodium (137-145) mmol/L Potassium (3.4-5.1) mmol/L Chloride (98-107) mmol/L Carbon Dioxide (22-32) mmol/L BUN (7-17) mg/dL Creatinine (0.52-1.04) mg/dL Estimated GFR (>60) mL/min BUN/Creatinine Ratio (6-22) Glucose (80-110) mg/dL Lactate (0.7-2.1) mmol/L Calcium (8.4-10.2) mg/dL Phosphorus (2.8-4.1) mg/dL Magnesium (1.6-2.3) mg/dL Total Bilirubin (0.2-1.3) mg/dL AST (14-36) IU/L ALT (9-52) IU/L Alkaline Phosphatase (38-126) U/L Troponin I < 0.012 (0.01-0.034) ng/mL B-Natriuretic Peptide (<100) Total Protein (6.3-8.2) g/dL Albumin (3.5-5.0) g/dL Globulin (1.7-4.1) g/dL Albumin/Globulin Ratio (1.0-2.8) Amylase (30-110) U/L Lipase (23-300) U/L Procalcitonin 0.21 (<0.5) ng/mL 03/04/19 03/04/19 Range/Units Unknown Unknown WBC (4.5-11.0) X10^3/uL RBC (4.0-5.2) X10^6/uL Hgb (12.0-16.0) g/dL Hct (36-46) % MCV (80-100) fL MCH (26-34) PG MCHC (30-36) % RDW (11.6-14.8) % Plt Count (150-400) X10^3/uL Neut % (Auto) (50-75) % Lymph % (Auto) (25-40) % Beckham % (Auto) (3-14) % Eos % (Auto) (2-4) % Baso % (Auto) (0-2) % Neut # (Auto) (4066-3825) /uL Lymph # (Auto) (1748-0001) /uL Beckham # (Auto) (0-900) /uL Eos # (Auto) (0-450) /uL Baso # (Auto) (0-100) /uL PT (10.1-12.7) SECONDS INR (0.9-1.3) APTT (26.4-36.2) SECONDS Sodium (137-145) mmol/L Potassium (3.4-5.1) mmol/L Chloride (98-107) mmol/L Carbon Dioxide (22-32) mmol/L BUN (7-17) mg/dL Creatinine (0.52-1.04) mg/dL Estimated GFR (>60) mL/min BUN/Creatinine Ratio (6-22) Glucose (80-110) mg/dL Lactate (0.7-2.1) mmol/L Calcium (8.4-10.2) mg/dL Phosphorus 2.9 (2.8-4.1) mg/dL Magnesium 1.3 L (1.6-2.3) mg/dL Total Bilirubin (0.2-1.3) mg/dL AST (14-36) IU/L ALT (9-52) IU/L Alkaline Phosphatase (38-126) U/L Troponin I (0.01-0.034) ng/mL B-Natriuretic Peptide < 100 (<100) Total Protein (6.3-8.2) g/dL Albumin (3.5-5.0) g/dL Globulin (1.7-4.1) g/dL Albumin/Globulin Ratio (1.0-2.8) Amylase (30-110) U/L Lipase (23-300) U/L Procalcitonin (<0.5) ng/mL Imaging Data CT scan - abdomen: Radiologist's impression: [place] [address] CT Scan Report Signed Patient: Josy Rojas [facility]#: [id number] : 8Acct:[id number] Age/Sex: 59 / FDate of Service: 03/04/19 Loc: ED Accession Number: [id number] Procedure: CT abdomen pelvis w con Ordering Provider: Eric Tao D.O. PROCEDURE: CT ABDOMEN PELVIS W CON INDICATIONS: abdominal distention, vomiting, history of Rubio-en-Y TECHNIQUE: After the administration of oral and intravenous contrast, 5 mm thick sections acquired from the diaphragms to the symphysis. 5 mm thick coronal and sagittal reformats were performed. For radiation dose reduction, the following was used: automated exposure control, adjustment of mA and/or kV according to patient size. COMPARISON: None. FINDINGS: Image quality: Excellent. ABDOMEN: Lung bases: Small left pleural effusion. Solid organs: Severe hepatic steatosis with relative sparing in the right hepatic lobe anteriorly. Gallbladder demonstrates high density foci within its lumen. Biliary system is non-dilated. Pancreas enhances normally. Spleen is normal in size and enhancement. No adrenal nodules. Kidneys are normal in size and enhancement, without hydronephrosis. Peritoneum and bowel: Gastric bypass has been performed. Stomach, small bowel, and colon loops are normal in caliber and wall thickness. Small amount of ascites. Normal appendix. Nodes and vessels: No retroperitoneal or mesenteric adenopathy. Aorta and inferior vena cava are normal in caliber. Miscellaneous: No ventral hernias. PELVIS: Genitourinary: Bladder wall thickness is normal. Miscellaneous: No inguinal hernias or adenopathy. Bones: No suspicious bony lesions. No vertebral body compression fractures. IMPRESSION: 1. Small amount of ascites. No evidence of abscess. 2. Severe hepatic steatosis. 3. Cholelithiasis. 4. Normal appendix. 5. Small left pleural effusion. Dictated by: Miles Blue M.D. on 03/04/2019 at 20:57 Approved by: Miles Blue M.D. on 03/04/2019 at 21:00 Chest x-ray: Radiologist's impression: [place] [address] XRay Report Signed Patient: Josy Rojas [facility]#: [id number] : 8Acct:[id number] Age/Sex: 59 / FDate of Service: 03/04/19 Loc: ED Accession Number: [id number] Procedure: XR chest 1V Ordering Provider: Eric Tao D.O. PROCEDURE: XR CHEST 1V INDICATIONS: Cough and rales TECHNIQUE: One view of the chest was acquired. COMPARISON: [facility], , XR CHEST 1V, 01/12/2019, 12:33. FINDINGS: Surgical changes and devices: None. Lungs and pleura: Lungs are clear. No pleural effusions or pneumothorax. Mediastinum: Mediastinal contours appear normal. Heart size is normal. Bones and chest wall: No suspicious bony lesions. Overlying soft tissues appear unremarkable. IMPRESSION: No acute process. Dictated by: Miles Blue M.D. on 03/04/2019 at 18:55 Approved by: Miles Blue M.D. on 03/04/2019 at 18:56 US - abdomen: Radiologist's impression: Distension gallbladder with possible impacted stone in the neck. Negative sonographic Hou sign. Mild ascites included bruna cholecystic fluid or ascites. Possible calculus in the gallbladder neck measuring 9 mm. Common bile duct 6.3 mm. Significant gallbladder distension/hydrops. No wall thickening. ECG Data Attestation: I personally reviewed and interpreted this ECG as follows: Prior ECG tracings: not available for review Interpretation: Sinus rhythm Ventricular rate 85 Normal axis Normal QRS Normal QTC No ST T wave changes MDM Narrative Medical decision making narrative: I have seen this patient in the emergency department in the past and today she does seem sicker than when she has been. There is no signs of atrial fibrillation despite not having taken her medications for the past couple days. She does have a soft however distended abdomen. Given her history of Rubio-en-Y gastric bypass a CT scan was ordered with IV and p.o. contrast. It shows no signs of obstruction. Does have stones in the gallbladder. She does have a new elevation in her LFTs and bilirubin compared with labs done in January of this year. Right upper quadrant ultrasound shows no signs of acute cholecystitis however does have what appears to be choledocholithiasis. I did discuss the case with Dr. Burt internal medicine of [facility] who accepts the patient in transport to be evaluated by GI and probable ERCP. Patient is stable for transport. I did discussed the transfer with the patient who expressed understanding and agreement. No antibiotics were given here in the emergency department. Discharge Plan Departure Patient Disposition: [facility] Clinical Impression: Choledocholithiasis Vomiting Qualifiers: Vomiting type: unspecified Vomiting Intractability: non-intractable Nausea presence: with nausea Qualified Code(s): R11.2 - Nausea with vomiting, unspecified Prescriptions: No Action Doxycycline 1 dose PO DIRECTED PRN (Reason: rosacea) RF: 0 lisinopril 2.5 mg tablet 2.5 mg PO DAILY RF: 0 apixaban 5 mg tablet 5 mg PO BID RF: 0
[2019-03-04 18:27] LABS: Add Manual Diff / Slide Review NO; Basophils Absolute Auto 0 /uL (0-100); Basophils Percent Auto 0.9 % (0-2); Eosinophils Absolute Auto 0 /uL (0-450); Eosinophils Percent Auto 0.2 % (2-4); Hematocrit 36.4 % (36-46); Hemoglobin 12.1 g/dL (12.0-16.0); Lymphocytes Absolute Auto 1100 /uL (1100-4500); Lymphocytes Percent Auto 24.2 % (25-40); Mean Corpuscular HGB Conc 33.2 % (30-36); Mean Corpuscular Hemoglobin 33.2 PG (26-34); Mean Corpuscular Volume 100.1 fL (80-100); Monocytes Absolute Auto 500 /uL (0-900); Monocytes Percent Auto 11.3 % (3-14); Neutrophils Absolute Auto 2800 /uL (1500-7000); Neutrophils Percent Auto 63.4 % (50-75); Platelet Count 128 X10^3/uL (150-400); Red Blood Cell Count 3.63 X10^6/uL (4.0-5.2); Red Cell Distribution Width 15.7 % (11.6-14.8); White Blood Cell Count 4.4 X10^3/uL (4.5-11.0)
--- NOTE | 2019-03-04 18:37 | DI.RAD.S_ITS ---
PROCEDURE: XR CHEST 1V INDICATIONS: Cough and rales TECHNIQUE: One view of the chest was acquired. COMPARISON: [facility], CR, XR CHEST 1V, 01/12/2019, 12:33. FINDINGS: Surgical changes and devices: None. Lungs and pleura: Lungs are clear. No pleural effusions or pneumothorax. Mediastinum: Mediastinal contours appear normal. Heart size is normal. Bones and chest wall: No suspicious bony lesions. Overlying soft tissues appear unremarkable. IMPRESSION: No acute process. Dictated by: Miles Blue M.D. on 03/04/2019 at 18:55 Approved by: Miles Blue M.D. on 03/04/2019 at 18:56
[2019-03-04 18:39] LABS: Alanine Aminotransferase 60 IU/L (9-52); Albumin 2.9 g/dL (3.5-5.0); Albumin Globulin Ratio 0.9 (1.0-2.8); Alkaline Phosphatase 256 U/L (38-126); Aspartate Aminotransferase 144 IU/L (14-36); BUN Creatinine Ratio 6.7 (6-22); Bilirubin Total 3.7 mg/dL (0.2-1.3); Blood Urea Nitrogen 4 mg/dL (7-17); Carbon Dioxide 28 mmol/L (22-32); Chloride 91 mmol/L (98-107); Estimated Glomerular Filt Rate > 60.0 mL/min (>60); Globulin 3.2 g/dL (1.7-4.1); Glucose 108 mg/dL (80-110); HEMOLYSIS < 15 (0-50); Lipase 27 U/L (23-300); Potassium 3.5 mmol/L (3.4-5.1); Sodium 127 mmol/L (137-145); Total Protein 6.1 g/dL (6.3-8.2)
[2019-03-04 18:41] LABS: Amylase < 30 U/L (30-110)
[2019-03-04] MEDS: ONDANSETRON 4 MG/2 ML INJ IV (19:22)
[2019-03-04] MEDS: SODIUM CHLORIDE 0.9% 1,000 ML 1000 ML IV (19:22)
[2019-03-04 20:40] LABS: INR 1.2 (0.9-1.3); Prothrombin Time 14.1 SECONDS (10.1-12.7)
[2019-03-04 20:43] LABS: PTT Partial Thromboplastin Tim 31 SECONDS (26.4-36.2)
[2019-03-04 20:46] LABS: Magnesium 1.3 mg/dL (1.6-2.3); Phosphorous 2.9 mg/dL (2.8-4.1)
[2019-03-04 20:58] LABS: Troponin I < 0.012 ng/mL (0.01-0.034)
[2019-03-04 21:03] LABS: B Type Natriuretic Peptide < 100 (<100)
[2019-03-04 21:04] LABS: Procalcitonin 0.21 ng/mL (<0.5)
[2019-03-04 21:24] LABS: Lactate (Lactic Acid) 1.3 mmol/L (0.7-2.1)
--- NOTE | 2019-03-04 22:09 | DI.US.S_ITS ---
PROCEDURE: US ABDOMEN LIMITED INDICATIONS: Right upper quadrant ultrasound eval for GB pathology TECHNIQUE: Real-time focused scanning was performed of the abdomen, with image documentation. COMPARISON: None. FINDINGS: Liver is normal in size measuring 16.1 cm in long axis. Liver has a diffusely increased echotexture which typically represents fatty infiltration; however, finding is nonspecific and other etiologies including hepatic cirrhosis can have a similar appearance. Please correlate with clinical and laboratory findings. Multiple gallstones are noted including a nonmobile stone in the gallbladder neck. No pericholecystic fluid noted. No sonographic Hou sign. Common bile duct is normal in caliber measuring 6.3 mm. Pancreas not visualized and cannot be evaluated. IMPRESSION: Cholelithiasis with nonmobile stone in the gallbladder neck with mild pericholecystic fluid. Early manifestation of acute cholecystitis cannot be excluded. Dictated by: Carlene Pearson MD, PhD on 03/05/2019 at 7:54 Approved by: Carlene Pearson MD, PhD on 03/05/2019 at 7:57
--- NOTE | 2019-03-05 00:19 | PC.NURSE ---
report called to Vladimir at [facility]
[2019-03-05 00:33] VITALS: BP 113/80; PULSE 80; RESP 18; O2SAT 99
[2019-03-05 02:09] VITALS: BP 119/79; PULSE 84; RESP 18; O2SAT 99
--- NOTE | 2019-03-05 02:42 | PC.NURSE ---
She wanted her iv cath removed when transport was here,it was patent and said she needed an iv access.When I told her this she statedi'll rip the thing out myself.Floridalma Cabrera and I attempted antoher iv access without success,she said this always happens,I am difficult to get an IV in.She agreed to keep the iv she had in her LAC.
== END 2019-03-05 02:10 | disposition short-term general hospital (02) ==
PROVIDERS: Nurse Practitioner Family; Emergency Provider Emergency Medicine
DX: K80.50 Calculus of bile duct without cholangitis or cholecystitis without obstruction (principal); R11.2 Nausea with vomiting, unspecified; R00.0 Tachycardia, unspecified
CPT/HCPCS: 36415; 36591; 71045; 74177; 76705; 80053; 82150; 83605; 83690; 83735; 83880; 84100; 84145; 84484; 85025; 85610; 85730; 93005; 96361; 96374; 99284; 99285; J2405; Q9967

== ENCOUNTER 2019-03-27 11:11 | Emergency (ER) | payer BC, SELFPAY ==
[2019-01-23 21:27] VITALS: BMI 28.4
[2019-03-27 11:15] VITALS: BP 160/91; PULSE 74; RESP 14; TEMP 36.6; O2SAT 100
--- NOTE | 2019-03-27 11:27 | DI.RAD.S_ITS ---
PROCEDURE: XR CHEST 1V INDICATIONS: chest pain TECHNIQUE: One view of the chest was acquired. COMPARISON: [facility], CR, XR CHEST 1V, 03/04/2019, 18:44. FINDINGS: Surgical changes and devices: None. Lungs and pleura: Subtle irregular retrocardiac opacity is present, slightly increased compared to the prior study. There may be a very small left pleural effusion. No pneumothorax. Right lung is clear. Mediastinum: Mediastinal contours appear normal. Heart size is normal. Bones and chest wall: No suspicious bony lesions. Overlying soft tissues appear unremarkable. IMPRESSION: Subtle retrocardiac opacity and questionable very small left pleural effusion, new since the prior study. Consider atelectasis or pneumonia. Dictated by: Shayy Bhakta M.D. on 03/27/2019 at 12:22 Approved by: Shayy Bhakta M.D. on 03/27/2019 at 12:26
[2019-03-27 11:35] VITALS: BP 152/92; PULSE 79; RESP 21; O2SAT 99
[2019-03-27 12:00] VITALS: BP 142/75; PULSE 82; RESP 19; O2SAT 99
--- NOTE | 2019-03-27 12:02 | PC.NURSE ---
Bladder scan showed > 600 in bladder however when catheter placed @ 50 cc out. ? if bladder scanner was picking up on abdominal ascites.
[2019-03-27 12:05] LABS: Add Manual Diff / Slide Review NO; Basophils Absolute Auto 0 /uL (0-100); Basophils Percent Auto 0.9 % (0-2); Eosinophils Absolute Auto 0 /uL (0-450); Eosinophils Percent Auto 0.2 % (2-4); Hematocrit 36.3 % (36-46); Hemoglobin 12.3 g/dL (12.0-16.0); Lymphocytes Absolute Auto 800 /uL (1100-4500); Lymphocytes Percent Auto 15.5 % (25-40); Mean Corpuscular Hemoglobin 35.2 PG (26-34); Mean Corpuscular Volume 103.6 fL (80-100); Monocytes Absolute Auto 500 /uL (0-900); Monocytes Percent Auto 9.4 % (3-14); Neutrophils Absolute Auto 4000 /uL (1500-7000); Platelet Count 199 X10^3/uL (150-400); Red Blood Cell Count 3.51 X10^6/uL (4.0-5.2); Red Cell Distribution Width 15.1 % (11.6-14.8); White Blood Cell Count 5.4 X10^3/uL (4.5-11.0)
[2019-03-27 12:10] LABS: Appearance Urine UA CLEAR; Bilirubin Urine UA 1+ (NEGATIVE); Color Urine UA ORANGE; Glucose Urine UA NEGATIVE (Negative); INR 1.4 (0.9-1.3); Ketones Urine UA TRACE (NEGATIVE); Leukocyte Esterase Urine UA TRACE (NEGATIVE); Nitrite Urine UA NEGATIVE (Negative); Occult Blood Urine UA NEGATIVE (Negative); Protein Urine UA TRACE (Negative); Prothrombin Time 16.2 SECONDS (10.1-12.7); Specific Gravity Urine UA 1.015 (1.000-1.035); Urobilinogen Urine UA >=8.0 E.U./dL (0.2)
[2019-03-27 12:12] LABS: PTT Partial Thromboplastin Tim 35 SECONDS (26.4-36.2)
[2019-03-27 12:15] LABS: Alanine Aminotransferase 35 IU/L (9-52); Albumin 2.7 g/dL (3.5-5.0); Albumin Globulin Ratio 0.8 (1.0-2.8); Alkaline Phosphatase 178 U/L (38-126); Aspartate Aminotransferase 96 IU/L (14-36); Bilirubin Total 2.7 mg/dL (0.2-1.3); Blood Urea Nitrogen 5 mg/dL (7-17); Calcium 8.5 mg/dL (8.4-10.2); Carbon Dioxide 25 mmol/L (22-32); Chloride 94 mmol/L (98-107); Creatine Kinase < 20 U/L (30-135); Estimated Glomerular Filt Rate > 60.0 mL/min (>60); Globulin 3.4 g/dL (1.7-4.1); Glucose 120 mg/dL (80-110); HEMOLYSIS 49 (0-50); Lipase 14 U/L (23-300); Potassium 4.6 mmol/L (3.4-5.1); Sodium 127 mmol/L (137-145); Total Protein 6.1 g/dL (6.3-8.2)
[2019-03-27 12:21] LABS: B Type Natriuretic Peptide < 100 (<100)
--- NOTE | 2019-03-27 12:22 | ED.WEAKNESS ---
HPI - Weakness General Chief complaint: Weakness Stated complaint: Stomach/legs swollen,lots of fluids,no good pee Time Seen by Provider: 03/27/19 12:22 Source: patient Mode of arrival: wheelchair Limitations: no limitations History of Present Illness HPI Narrative: This is a 59-year-old female comes to the emergency department with complaint of generalized weakness. She states for 2 days she has also had increasing swelling in her lower extremities as well as increased abdominal girth. Patient states that she has had a little bit of swelling in her legs is much worse. She states she was able to walk at home today but it was difficult and she borrowed a walker. She denies any lateralizing weakness, numbness or difficulty with speech. She denies any chest pain, no shortness of breath orthopnea. She states that she has not had much urine output. Patient has not had any fever or chills. She will occasionally feel nauseated or have an episode of dry heaving but does not vomit regularly or have regular nausea. She has been having bowel movements with no major changes. She has known atrial fibrillation she states she is on Eliquis. She has a history of gastric bypass she thinks her weight loss has slowed. She has known cirrhosis, she was transferred down to [place] about 2 weeks ago and seen for suspected choledocholithiasis which was not found. She did not have ERCP but did have multiple CT scans and ultrasounds. There was discussion about paracentesis but not the location that they felt was safe so this was not performed. She states she was started on spironolactone and she has been taking this for 2 weeks. She was given a prescription for Lasix for about a week but does not have any more since then. 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 She did have a bloody Kimberlee on mother's Day. She is supposed to see a special procedure tech but has not actually seen 1 or set up follow-up. She notes she does get bruising regularly on her lower extremities but she also has a 3-year-old adopted son who jumps up and down the legs regularly. She denies any itching of her skin. Related Data Home Medications Medication Instructions Recorded Confirmed apixaban 5 mg PO BID 01/12/19 03/27/19 lisinopril 2.5 mg PO DAILY 01/12/19 03/27/19 albuterol sulfate [ProAir HFA] 2 puff INHALATION Q4H PRN 03/27/19 03/27/19 levothyroxine 300 mcg PO DAILY 03/27/19 03/27/19 metoprolol succinate 25 mg PO DAILY 03/27/19 03/27/19 pantoprazole 40 mg PO DAILY PRN 03/27/19 03/27/19 Previous Rx's Medication Instructions Recorded furosemide [Lasix] 40 mg PO DAILY #20 tab 03/27/19 spironolactone 100 mg PO DAILY #20 tab 03/27/19 Allergies Allergy/AdvReac Type Severity Reaction Status Date / Time No Known Drug Allergies Allergy Verified 03/04/19 15:13 Review of Systems Review of Systems ROS Unobtainable: All systems reviewed & are unremarkable except as noted in HPI and below Constitutional Denies chills, Denies fever(s), Denies frequent falls, Denies lethargy, Denies night sweats and Reports weakness (generalized) Cardiovascular Denies chest pain, Denies chest pain with activity, Denies diaphoresis, Denies syncope, Reports edema (bilateral lower extremities), Reports leg edema, Denies lightheadedness, Denies palpitations, Denies dyspnea, Denies dyspnea on exertion and Denies orthopnea Respiratory Denies change in phlegm color, Denies chest congestion, Reports cough (chronic, no new change.), Denies dyspnea, Denies dyspnea on exertion, Denies stridor and Denies wheezing Gastrointestinal Gastrointestinal: Denies abdominal pain, Denies melena, Denies hematochezia, Denies change in bowel habits, Denies coffee ground emesis, Denies constipation, Denies diarrhea, Reports nausea (occasional) and Reports vomiting (occasional) Genitourinary Denies hematuria, Denies urinary frequency, Denies dysuria, Denies flank pain, Denies urinary incontinence and Denies urinary urgency Musculoskeletal Denies numbness Integumentary/Breasts Reports unusual bruising Neurologic Denies confusion, Denies syncope, Denies frequent falls, Denies focal weakness, Denies numbness and Reports weakness (generalized) Psychiatric Denies confusion Endocrine Denies palpitations Allergic/Immunologic Denies wheezing [facility] Medical History Abdominal hernia (Acute) Atrial fibrillation (Acute) Chronic anticoagulation (Acute) History of cardioversion (Acute) Hypothyroid (Acute) Rosacea (Acute) Surgical History Hx of gastric bypass (Acute) Family History Mother No known health problems Father No known health problems Social History household members: children and friend(s) Smoking Status: Never smoker Family History Mother No known health problems Father No known health problems Social History (Updated 03/27/19 @ 12:49 by Mary Burger DO) household members: children and friend(s) other: Lives on [address], has adopted 3 year old son. Smoking Status: Never smoker alcohol intake: former substance use type: does not use Exam Narrative Exam Narrative: GENERAL: Alert and oriented x three, cooperative, well-developed female in no acute distress. HEENT: Head normocephalic, atraumatic, EOMI, pupils reactive, face symmetric, moist mucous membranes NECK: Supple, full range of motion CARDIOVASCULAR: Regular rate and rhythm without murmurs, rubs or gallops. RESPIRATORY: Breath sounds equal bilaterally, no wheezes rales or rhonchi. ABDOMEN: Soft, nontender, distended with positive fluid wave. Patient is slightly prominent veins but no caput. Normoactive bowel sounds all 4 quadrants. No guarding or rebound, rigidity, no mass : No CVA tenderness EXTREMITIES: Normal range of motion, normal range of motion in bed. Patient has bilateral 2+ edema lower extremities significantly greater than lower half the legs but present in the thighs as well. Neurovascularly intact NEUROLOGICAL: Cranial nerves II through XII grossly intact. Moving all extremities SKIN: Warm, dry, no petechiae, no rashes or lesions, patient has several small bruises on her lower extremities. Initial Vital Signs Initial Vital Signs: Vital Signs Temperature 97.9 F 03/27/19 11:15 Pulse Rate 74 03/27/19 11:15 Respiratory Rate 14 03/27/19 11:15 Blood Pressure 160/91 H 03/27/19 11:15 Pulse Oximetry 100 03/27/19 11:15 Course Orders Ordered: ED Orders 03/27/19 11:27 XR chest 1V Stat EKG-12 Lead Stat 03/27/19 11:55 BNP [B Type Natriuretic Peptide] Stat Complete Blood Count AUTO DIFF Stat Comprehensive Metabolic Panel Stat Ictotest Urine Stat Lipase Stat Partial Thromboplastin Time Stat Prothrombin Time INR Stat Troponin & CK Cardiac Panel Stat Urinalysis and Microscopic Stat 03/27/19 13:06 Ammonia (NH3) Stat 03/27/19 13:11 US abdomen complete Stat Discontinued Medications Furosemide (Lasix) 80 mg IV NOW ONE Stop: 03/27/19 12:44 Last Admin: 03/27/19 13:03 Dose: 80 mg Vital Signs - 8 hr 03/27/19 11:15 03/27/19 11:35 03/27/19 12:00 Temperature 97.9 F Pulse Rate 74 79 82 Respiratory Rate 14 21 19 Blood Pressure 160/91 H Blood Pressure [Right Arm] 152/92 H 142/75 H Pulse Oximetry 100 99 99 03/27/19 13:03 03/27/19 13:34 03/27/19 14:35 Temperature Pulse Rate 74 75 80 Respiratory Rate 19 19 19 Blood Pressure Blood Pressure [Right Arm] 128/77 146/87 H 129/87 Pulse Oximetry 98 100 100 MDM - Weakness Lab Data Attestation: I reviewed the patient's lab results. Result diagrams: 03/27/19 11:55 03/27/19 11:55 Lab Results 03/27/19 03/27/19 03/27/19 Range/Units 11:55 11:55 11:55 WBC 5.4 (4.5-11.0) X10^3/uL RBC 3.51 L (4.0-5.2) X10^6/uL Hgb 12.3 (12.0-16.0) g/dL Hct 36.3 (36-46) % MCV 103.6 H (80-100) fL MCH 35.2 H (26-34) PG MCHC 34.0 (30-36) % RDW 15.1 H (11.6-14.8) % Plt Count 199 (150-400) X10^3/uL Neut % (Auto) 74.0 (50-75) % Lymph % (Auto) 15.5 L (25-40) % [place] % (Auto) 9.4 (3-14) % Eos % (Auto) 0.2 L (2-4) % Baso % (Auto) 0.9 (0-2) % Neut # (Auto) 4000 (0124-6422) /uL Lymph # (Auto) 800 L (5199-4146) /uL [place] # (Auto) 500 (0-900) /uL Eos # (Auto) 0 (0-450) /uL Baso # (Auto) 0 (0-100) /uL PT 16.2 H (10.1-12.7) SECONDS INR 1.4 H (0.9-1.3) APTT 35 D (26.4-36.2) SECONDS Sodium 127 L (137-145) mmol/L Potassium 4.6 (3.4-5.1) mmol/L Chloride 94 L (98-107) mmol/L Carbon Dioxide 25 (22-32) mmol/L BUN 5 L (7-17) mg/dL Creatinine 0.50 L (0.52-1.04) mg/dL Estimated GFR > 60.0 (>60) mL/min BUN/Creatinine Ratio 10.0 (6-22) Glucose 120 H (80-110) mg/dL Calcium 8.5 (8.4-10.2) mg/dL Total Bilirubin 2.7 H (0.2-1.3) mg/dL AST 96 H (14-36) IU/L ALT 35 (9-52) IU/L Alkaline Phosphatase 178 H (38-126) U/L Ammonia (9-30) umol/L Total Creatine Kinase < 20 L (30-135) U/L CK-MB (CK-2) TNP CK-MB (CK-2) Rel Index TNP Troponin I < 0.012 (0.01-0.034) ng/mL B-Natriuretic Peptide (<100) Total Protein 6.1 L (6.3-8.2) g/dL Albumin 2.7 L (3.5-5.0) g/dL Globulin 3.4 (1.7-4.1) g/dL Albumin/Globulin Ratio 0.8 L (1.0-2.8) Lipase 14 L (23-300) U/L Urine Color Urine Appearance Urine pH (4.5-8.0) Ur Specific [place] (1.000-1.035) Urine Protein (Negative) Urine Glucose (UA) (Negative) g/dL Urine Ketones (NEGATIVE) Urine Occult Blood (Negative) Urine Nitrate (Negative) Urine Bilirubin (NEGATIVE) Urine Ictotest (Negative) Urine Urobilinogen (0.2) E.U./dL Ur Leukocyte Esterase (NEGATIVE) Urine RBC (0-5/HPF) Urine WBC (0-5/HPF) Ur Squamous Epith Cells (0-5/HPF) Ur Transition Epith Cell (0-5/HPF) Calcium Oxalate Crystal Urine Bacteria (None) Hyaline Casts (None) Urine Mucus (Negative) Ur Culture Indicated? 03/27/19 03/27/19 03/27/19 Range/Units 11:55 11:55 13:06 WBC (4.5-11.0) X10^3/uL RBC (4.0-5.2) X10^6/uL Hgb (12.0-16.0) g/dL Hct (36-46) % MCV (80-100) fL MCH (26-34) PG MCHC (30-36) % RDW (11.6-14.8) % Plt Count (150-400) X10^3/uL Neut % (Auto) (50-75) % Lymph % (Auto) (25-40) % [place] % (Auto) (3-14) % Eos % (Auto) (2-4) % Baso % (Auto) (0-2) % Neut # (Auto) (1108-6204) /uL Lymph # (Auto) (9553-8537) /uL [place] # (Auto) (0-900) /uL Eos # (Auto) (0-450) /uL Baso # (Auto) (0-100) /uL PT (10.1-12.7) SECONDS INR (0.9-1.3) APTT (26.4-36.2) SECONDS Sodium (137-145) mmol/L Potassium (3.4-5.1) mmol/L Chloride (98-107) mmol/L Carbon Dioxide (22-32) mmol/L BUN (7-17) mg/dL Creatinine (0.52-1.04) mg/dL Estimated GFR (>60) mL/min BUN/Creatinine Ratio (6-22) Glucose (80-110) mg/dL Calcium (8.4-10.2) mg/dL Total Bilirubin (0.2-1.3) mg/dL AST (14-36) IU/L ALT (9-52) IU/L Alkaline Phosphatase (38-126) U/L Ammonia 15.0 (9-30) umol/L Total Creatine Kinase (30-135) U/L CK-MB (CK-2) CK-MB (CK-2) Rel Index Troponin I (0.01-0.034) ng/mL B-Natriuretic Peptide < 100 (<100) Total Protein (6.3-8.2) g/dL Albumin (3.5-5.0) g/dL Globulin (1.7-4.1) g/dL Albumin/Globulin Ratio (1.0-2.8) Lipase (23-300) U/L Urine Color Withams Urine Appearance Clear Urine pH 8.0 (4.5-8.0) Ur Specific [place] 1.015 (1.000-1.035) Urine Protein Trace H (Negative) Urine Glucose (UA) Negative (Negative) g/dL Urine Ketones Trace H (NEGATIVE) Urine Occult Blood Negative (Negative) Urine Nitrate Negative (Negative) Urine Bilirubin 1+ H (NEGATIVE) Urine Ictotest Positive H (Negative) Urine Urobilinogen >=8.0 (0.2) E.U./dL Ur Leukocyte Esterase Trace H (NEGATIVE) Urine RBC 0-1/hpf (0-5/HPF) Urine WBC 1-5/hpf (0-5/HPF) Ur Squamous Epith Cells 10-30 /hpf H D (0-5/HPF) Ur Transition Epith Cell 1-5/hpf (0-5/HPF) Calcium Oxalate Crystal Occasional H Urine Bacteria Moderate (10-30) H (None) Hyaline Casts 0-1/lpf (None) Urine Mucus 2+ H (Negative) Ur Culture Indicated? Cult not indicated Imaging Data Chest x-ray: Radiologist's impression: [address] [address] XRay Report Signed Patient: Josy Rojas R#: [id number] : 8Acct:[id number] Age/Sex: 59 / FDate of Service: 03/27/19 Loc: ED Accession Number: [id number] Procedure: XR chest 1V Ordering Provider: Mary Burger D.O. PROCEDURE: XR CHEST 1V INDICATIONS: chest pain TECHNIQUE: One view of the chest was acquired. COMPARISON: [facility], CR, XR CHEST 1V, 03/04/2019, 18:44. FINDINGS: Surgical changes and devices: None. Lungs and pleura: Subtle irregular retrocardiac opacity is present, slightly increased compared to the prior study. There may be a very small left pleural effusion. No pneumothorax. Right lung is clear. Mediastinum: Mediastinal contours appear normal. Heart size is normal. Bones and chest wall: No suspicious bony lesions. Overlying soft tissues appear unremarkable. IMPRESSION: Subtle retrocardiac opacity and questionable very small left pleural effusion, new since the prior study. Consider atelectasis or pneumonia. Dictated by: Shayy Bhakta M.D. on 03/27/2019 at 12:22 Approved by: Shayy Bhakta M.D. on 03/27/2019 at 12:26 US - abdomen: Radiologist's impression: [facility] DATE TYPE STATUS AUTHOR Hx 03/27/19 13:11 Jorje Nance 03/27/19 11:27 Shayy Bhakta 03/04/19 22:09 Carlene Pearson 03/04/19 18:37 Miles Blue 03/04/19 00:00 Miles Blue 01/23/19 20:27 01/23/19 18:42 Shayy Bhakta 01/12/19 12:26 Tariq Polo 01/12/19 11:47 09/12/18 06:44 Jorje Nance 09/12/18 06:44 Jorje Nance 09/11/18 16:13 Isidro Eaton Barbara V 59, F0 1960 DEP ER, ED.LOC - Main ED 89.1kg Weakness Search Chart ONSET Today 14:35 Josy Rojas F [address] [address] Ultrasound Report Signed Patient: KeypearlJosy R#: [id number] : 8Acct:[id number] Age/Sex: 59 / FDate of Service: 03/27/19 Loc: ED Accession Number: [id number] Procedure: US abdomen complete Ordering Provider: Mary Burger D.O. PROCEDURE: US ABDOMEN COMPLETE INDICATIONS: BLOATING TECHNIQUE: Real-time scanning was performed of the abdominal and retroperitoneal organs, with image documentation. COMPARISON: [facility], CT, CT ABDOMEN PELVIS W CON, 03/04/2019, 20:39. [facility], US, US ABDOMEN LIMITED, 03/04/2019, 22:31. [facility], CR, XR CHEST 1V, 03/27/2019, 11:38. FINDINGS: Liver: The liver demonstrates normal size. The liver demonstrates generalized increased echogenicity. This decreases ultrasound sensitivity for detection of hepatic masses. Gallbladder: Numerous gallstones are seen, with the largest measuring 7 mm. The gallbladder wall is not thickened, measuring 3 mm or less. No specific pericholecystic fluid is seen. The sonographic Hou sign is negative. Biliary ducts: Intrahepatic bile ducts are non-dilated. Extrahepatic bile duct caliber measures 6 mm. Normal is 6-7 mm or less in diameter, or 10 mm or less post-cholecystectomy. Pancreas: Not seen. Spleen: Spleen is normal in size and homogeneous in echotexture. Kidneys: The kidneys demonstrate normal echotexture. Right kidney measures 10 cm long; left kidney measures 7.8 cm long. No hydronephrosis. Focal hyperechogenicity can be seen involving the right mid kidney. No solid masses. Aorta: Not seen, obscured by overlying bowel gas. Iliacs: Not seen, obscured by overlying bowel gas. IVC: Not seen. Miscellaneous: A moderate to prominent amount of ascites is seen. This study is limited by body habitus. IMPRESSION: Moderate to prominent ascites. Hyperechogenicity can be seen involving the mid right kidney. No stones can be seen on the recent prior CT to correlate with this finding. Prominent, fatty liver. Gallstones are seen, without additional sonographic signs of cholecystitis. No biliary dilatation. Limited study, without visualization of the aorta, iliac arteries, IVC, or pancreas. Dictated by: Jorje Nance M.D. on 03/27/2019 at 12:28 Approved by: Jorje Nance M.D. on 03/27/2019 at 12:31 ECG Data Attestation: I personally reviewed and interpreted this ECG as follows: Prior ECG tracings: available for review Interpretation: Sinus rhythm with a ventricular rate of 79 P are 133 QRS of 97 QTC of 421. No significant ST changes appreciated. EKG does appears similar to prior. MDM Narrative Medical decision making narrative: Patient's lab work does not show any acute changes troponin or BNP she does have hyponatremia with elevated LFTs including bilirubin, AST of 96, alk-phos of 178. Patient has a low total protein,She does not show any anemia but does have some macrocytosis on her CBCs within normal WBC and coags show an elevated INR. Patient chest x-ray showed possible subtle retrocardiac opacity questionable very small left pleural effusion she is not having any upper respiratory symptoms consistent with pneumonia or congestive heart failure at this time. I would suspect that she is having worsening of her liver disease as she states she has known cirrhosis and was supposed to see a special procedure tech has not done this. She has also been off her Lasix, she is taking spironolactone. Ultrasound of abdomen was ordered an a ammonia level included. Dr. Guerra, rec's 40mg lasix and spironolactone 100mg daily. can follow with the office as outpatient. Patient and I discussed she prefers to return home. She was able to ambulate today. She is quite swollen in her abdomen and lower extremities. She received 80 mg of Lasix and had good urine output. She had a Brewster catheter as bladder scanner showed 400 cc but likely this was incorrect because only 50 cc were out with Brewster catheter. Likely bladder scanner was incorrect because of her ascites. Discussed with patient her meld score is 23, we discussed that that puts her mortality at 19% in the next 3 months. We discussed that is of paramount importance that she take medications regularly, follow-up with Gastroenterology, do not drink any further alcohol to improve her odds. Patient does seem open this, she was given a short script of Lasix in the handwritten script for 5 tablets of 40 mg as her pharmacy will be closed when she returns to the [place]. She has plenty of spironolactone and was given prescriptions that were electronically faxed to her [facility] pharmacy. Given referral to Dr. Guerra, she will follow up with Dr. Espinal on Saturday to recheck her potassium and other labs as it sometimes gets low with the Lasix I did discuss she could return at any point this week in for recheck. We did discuss and I offered observation versus admission some place with GI available but patient did defer this. Discharge Plan Departure Patient Disposition: Home Clinical Impression: Swelling of both lower extremities, Ascites, Chronic liver failure Discharge Date/Time: 03/27/19 15:36 Interventions: ED Discharge Assessment Last Done: 03/27/19 15:35 Instructions: DI for Acute Liver Failure Activity Restrictions/Additional Instructions: Follow-up with Dr. Guerra through Gastroenterology. Continue Lasix 40 mg daily. You also may take your spironolactone 100 mg daily. Prescriptions sent to [facility]. Fill the prescription for 5 tablets Lasix this week. Do not drink any alcohol. Return to the ER for worsening symptoms, new fevers, worsening swelling of your lower extremities or abdomen, new shortness of breath, chest pain, persistent cough, black or bloody stools, unusual bruising or bleeding from your gums. Prescriptions: New furosemide [Lasix] 40 mg tablet 40 mg PO DAILY Qty: 20 RF: 0 spironolactone 100 mg tablet 100 mg PO DAILY Qty: 20 RF: 0 No Action metoprolol succinate 25 mg tablet extended release 24 hr 25 mg PO DAILY RF: 0 levothyroxine 300 mcg Tablet 300 mcg PO DAILY RF: 0 pantoprazole 40 mg Tablet,Delayed Release (Dr/Ec) 40 mg PO DAILY PRN (Reason: Acid Reflux) RF: 0 albuterol sulfate [ProAir HFA] 90 mcg/actuation Hfa Aerosol Inhaler 2 puff Inhalation Q4H PRN (Reason: Shortness Of Breath) RF: 0 lisinopril 2.5 mg tablet 2.5 mg PO DAILY RF: 0 apixaban 5 mg tablet 5 mg PO BID RF: 0 Referrals: Jaycob Guerra MD [Non-Staff] -
[2019-03-27 12:26] LABS: Troponin I < 0.012 ng/mL (0.01-0.034)
[2019-03-27 12:28] LABS: RBC Urine 0-1/HPF (0-5/HPF); WBC Urine 1-5/HPF (0-5/HPF)
[2019-03-27 12:29] LABS: Bacteria Urine Moderate (10-30); Calcium Oxalate Crystals Urine Occasional; Culture Indicated Urine Cult Not Indicated; Hyaline Casts Urine 0-1/LPF; Mucus Urine 2+ (Negative); Squamous Epithelial Cell Urine 10-30 /HPF (0-5/HPF); Transitional Epi Cells Urine 1-5/HPF (0-5/HPF)
--- NOTE | 2019-03-27 12:42 | ED_ITS ---
HPI - Weakness General Chief complaint: Weakness Stated complaint: Stomach/legs swollen,lots of fluids,no good pee Time Seen by Provider: 03/27/19 12:22 Source: patient Mode of arrival: wheelchair Limitations: no limitations History of Present Illness HPI Narrative: This is a 59-year-old female comes to the emergency department with complaint of generalized weakness. She states for 2 days she has also had increasing swelling in her lower extremities as well as increased abdominal girth. Patient states that she has had a little bit of swelling in her legs is much worse. She states she was able to walk at home today but it was difficult and she borrowed a walker. She denies any lateralizing weakness, numbness or difficulty with speech. She denies any chest pain, no shortness of breath orthopnea. She states that she has not had much urine output. Patient has not had any fever or chills. She will occasionally feel nauseated or have an episode of dry heaving but does not vomit regularly or have regular nausea. She has been having bowel movements with no major changes. She has known atrial fibrill ation she states she is on Eliquis. She has a history of gastric bypass she thinks her weight loss has slowed. She has known cirrhosis, she was transferred down to [place] about 2 weeks ago and seen for suspected choledocholithiasis which was not found. She did not have ERCP but did have multiple CT scans and ultrasounds. There was discussion about paracentesis but not the location that they felt was safe so this was not performed. She states she was started on spironolactone and she has been taking this for 2 weeks. She was given a prescription for Lasix for about a week but does not have any more since then. 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 She did have a bloody Kimberlee on mother's Day. She is supposed to see a motion picture actor but has not actually seen 1 or set up follow-up. She notes she does get bruising regularly on her lower extremities but she also has a 3-year-old adopted son who jumps up and down the legs regularly. She denies any itching of her skin. Related Data Home Medications Medication Instructions Recorded Confirmed apixaban 5 mg PO BID 01/12/19 03/27/19 lisinopril 2.5 mg PO DAILY 01/12/19 03/27/19 albuterol sulfate [ProAir HFA] 2 puff INHALATION Q4H PRN 03/27/19 03/27/19 levothyroxine 300 mcg PO DAILY 03/27/19 03/27/19 metoprolol succinate 25 mg PO DAILY 03/27/19 03/27/19 pantoprazole 40 mg PO DAILY PRN 03/27/19 03/27/19 Previous Rx's Medication Instructions Recorded furosemide [Lasix] 40 mg PO DAILY #20 tab 03/27/19 spironolactone 100 mg PO DAILY #20 tab 03/27/19 Allergies Allergy/AdvReac Type Severity Reaction Status Date / Time No Known Drug Allergies Allergy Verified 03/04/19 15:13 Review of Systems Review of Systems ROS Unobtainable: All systems reviewed & are unremarkable except as noted in HPI and below Constitutional Denies chills, Denies fever(s), Denies frequent falls, Denies lethargy, Denies night sweats and Reports weakness (generalized) Cardiovascular Denies chest pain, Denies chest pain with activity, Denies diaphoresis, Denies syncope, Reports edema (bilateral lower extremities), Reports leg edema, Denies lightheadedness, Denies palpitations, Denies dyspnea, Denies dyspnea on exertion and Denies orthopnea Respiratory Denies change in phlegm color, Denies chest congestion, Reports cough (chronic, no new change.), Denies dyspnea, Denies dyspnea on exertion, Denies stridor and Denies wheezing Gastrointestinal Gastrointestinal: Denies abdominal pain, Denies melena, Denies hematochezia, Denies change in bowel habits, Denies coffee ground emesis, Denies constipation, Denies diarrhea, Reports nausea (occasional) and Reports vomiting (occasional) Genitourinary Denies hematuria, Denies urinary frequency, Denies dysuria, Denies flank pain, Denies urinary incontinence and Denies urinary urgency Musculoskeletal Denies numbness Integumentary/Breasts Reports unusual bruising Neurologic Denies confusion, Denies syncope, Denies frequent falls, Denies focal weakness, Denies numbness and Reports weakness (generalized) Psychiatric Denies confusion Endocrine Denies palpitations Allergic/Immunologic Denies wheezing [facility] Medical History Abdominal hernia (Acute) Atrial fibrillation (Acute) Chronic anticoagulation (Acute) History of cardioversion (Acute) Hypothyroid (Acute) Rosacea (Acute) Surgical History Hx of gastric bypass (Acute) Family History Mother No known health problems Father No known health problems Social History household members: children and friend(s) Smoking Status: Never smoker Family History Mother No known health problems Father No known health problems Social History (Updated 03/27/19 @ 12:49 by Mary Burger DO) household members: children and friend(s) other: Lives on [address], has adopted 3 year old son. Smoking Status: Never smoker alcohol intake: former substance use type: does not use Exam Narrative Exam Narrative: GENERAL: Alert and oriented x three, cooperative, well-developed female in no acute distress. HEENT: Head normocephalic, atraumatic, EOMI, pupils reactive, face symmetric, moist mucous membranes NECK: Supple, full range of motion CARDIOVASCULAR: Regular rate and rhythm without murmurs, rubs or gallops. RESPIRATORY: Breath sounds equal bilaterally, no wheezes rales or rhonchi. ABDOMEN: Soft, nontender, distended with positive fluid wave. Patient is slightly prominent veins but no caput. Normoactive bowel sounds all 4 quadrants. No guarding or rebound, rigidity, no mass : No CVA tenderness EXTREMITIES: Normal range of motion, normal range of motion in bed. Patient has bilateral 2+ edema lower extremities significantly greater than lower half the legs but present in the thighs as well. Neurovascularly intact NEUROLOGICAL: Cranial nerves II through XII grossly intact. Moving all extremities SKIN: Warm, dry, no petechiae, no rashes or lesions, patient has several small bruises on her lower extremities. Initial Vital Signs Initial Vital Signs: Vital Signs Temperature 97.9 F 03/27/19 11:15 Pulse Rate 74 03/27/19 11:15 Respiratory Rate 14 03/27/19 11:15 Blood Pressure 160/91 H 03/27/19 11:15 Pulse Oximetry 100 03/27/19 11:15 Course Orders Ordered: ED Orders 03/27/19 11:27 XR chest 1V Stat EKG-12 Lead Stat 03/27/19 11:55 BNP [B Type Natriuretic Peptide] Stat Complete Blood Count AUTO DIFF Stat Comprehensive Metabolic Panel Stat Ictotest Urine Stat Lipase Stat Partial Thromboplastin Time Stat Prothrombin Time INR Stat Troponin & CK Cardiac Panel Stat Urinalysis and Microscopic Stat 03/27/19 13:06 Ammonia (NH3) Stat 03/27/19 13:11 US abdomen complete Stat Discontinued Medications Furosemide (Lasix) 80 mg IV NOW ONE Stop: 03/27/19 12:44 Last Admin: 03/27/19 13:03 Dose: 80 mg Vital Signs - 8 hr 03/27/19 11:15 03/27/19 11:35 03/27/19 12:00 Temperature 97.9 F Pulse Rate 74 79 82 Respiratory Rate 14 21 19 Blood Pressure 160/91 H Blood Pressure [Right Arm] 152/92 H 142/75 H Pulse Oximetry 100 99 99 03/27/19 13:03 03/27/19 13:34 03/27/19 14:35 Temperature Pulse Rate 74 75 80 Respiratory Rate 19 19 19 Blood Pressure Blood Pressure [Right Arm] 128/77 146/87 H 129/87 Pulse Oximetry 98 100 100 MDM - Weakness Lab Data Attestation: I reviewed the patient's lab results. Result diagrams: 03/27/19 11:55 03/27/19 11:55 Lab Results 03/27/19 03/27/19 03/27/19 Range/Units 11:55 11:55 11:55 WBC 5.4 (4.5-11.0) X10^3/uL RBC 3.51 L (4.0-5.2) X10^6/uL Hgb 12.3 (12.0-16.0) g/dL Hct 36.3 (36-46) % MCV 103.6 H (80-100) fL MCH 35.2 H (26-34) PG MCHC 34.0 (30-36) % RDW 15.1 H (11.6-14.8) % Plt Count 199 (150-400) X10^3/uL Neut % (Auto) 74.0 (50-75) % Lymph % (Auto) 15.5 L (25-40) % Coos % (Auto) 9.4 (3-14) % Eos % (Auto) 0.2 L (2-4) % Baso % (Auto) 0.9 (0-2) % Neut # (Auto) 4000 (5205-1734) /uL Lymph # (Auto) 800 L (8648-1770) /uL [place] # (Auto) 500 (0-900) /uL Eos # (Auto) 0 (0-450) /uL Baso # (Auto) 0 (0-100) /uL PT 16.2 H (10.1-12.7) SECONDS INR 1.4 H (0.9-1.3) APTT 35 D (26.4-36.2) SECONDS Sodium 127 L (137-145) mmol/L Potassium 4.6 (3.4-5.1) mmol/L Chloride 94 L (98-107) mmol/L Carbon Dioxide 25 (22-32) mmol/L BUN 5 L (7-17) mg/dL Creatinine 0.50 L (0.52-1.04) mg/dL Estimated GFR > 60.0 (>60) mL/min BUN/Creatinine Ratio 10.0 (6-22) Glucose 120 H (80-110) mg/dL Calcium 8.5 (8.4-10.2) mg/dL Total Bilirubin 2.7 H (0.2-1.3) mg/dL AST 96 H (14-36) IU/L ALT 35 (9-52) IU/L Alkaline Phosphatase 178 H (38-126) U/L Ammonia (9-30) umol/L Total Creatine Kinase < 20 L (30-135) U/L CK-MB (CK-2) TNP CK-MB (CK-2) Rel Index TNP Troponin I < 0.012 (0.01-0.034) ng/mL B-Natriuretic Peptide (<100) Total Protein 6.1 L (6.3-8.2) g/dL Albumin 2.7 L (3.5-5.0) g/dL Globulin 3.4 (1.7-4.1) g/dL Albumin/Globulin Ratio 0.8 L (1.0-2.8) Lipase 14 L (23-300) U/L Urine Color Urine Appearance Urine pH (4.5-8.0) Ur Specific [place] (1.000-1.035) Urine Protein (Negative) Urine Glucose (UA) (Negative) g/dL Urine Ketones (NEGATIVE) Urine Occult Blood (Negative) Urine Nitrate (Negative) Urine Bilirubin (NEGATIVE) Urine Ictotest (Negative) Urine Urobilinogen (0.2) E.U./dL Ur Leukocyte Esterase (NEGATIVE) Urine RBC (0-5/HPF) Urine WBC (0-5/HPF) Ur Squamous Epith Cells (0-5/HPF) Ur Transition Epith Cell (0-5/HPF) Calcium Oxalate Crystal Urine Bacteria (None) Hyaline Casts (None) Urine Mucus (Negative) Ur Culture Indicated? 03/27/19 03/27/19 03/27/19 Range/Units 11:55 11:55 13:06 WBC (4.5-11.0) X10^3/uL RBC (4.0-5.2) X10^6/uL Hgb (12.0-16.0) g/dL Hct (36-46) % MCV (80-100) fL MCH (26-34) PG MCHC (30-36) % RDW (11.6-14.8) % Plt Count (150-400) X10^3/uL Neut % (Auto) (50-75) % Lymph % (Auto) (25-40) % Coos % (Auto) (3-14) % Eos % (Auto) (2-4) % Baso % (Auto) (0-2) % Neut # (Auto) (2957-9208) /uL Lymph # (Auto) (5659-6137) /uL Coos # (Auto) (0-900) /uL Eos # (Auto) (0-450) /uL Baso # (Auto) (0-100) /uL PT (10.1-12.7) SECONDS INR (0.9-1.3) APTT (26.4-36.2) SECONDS Sodium (137-145) mmol/L Potassium (3.4-5.1) mmol/L Chloride (98-107) mmol/L Carbon Dioxide (22-32) mmol/L BUN (7-17) mg/dL Creatinine (0.52-1.04) mg/dL Estimated GFR (>60) mL/min BUN/Creatinine Ratio (6-22) Glucose (80-110) mg/dL Calcium (8.4-10.2) mg/dL Total Bilirubin (0.2-1.3) mg/dL AST (14-36) IU/L ALT (9-52) IU/L Alkaline Phosphatase (38-126) U/L Ammonia 15.0 (9-30) umol/L Total Creatine Kinase (30-135) U/L CK-MB (CK-2) CK-MB (CK-2) Rel Index Troponin I (0.01-0.034) ng/mL B-Natriuretic Peptide < 100 (<100) Total Protein (6.3-8.2) g/dL Albumin (3.5-5.0) g/dL Globulin (1.7-4.1) g/dL Albumin/Globulin Ratio (1.0-2.8) Lipase (23-300) U/L Urine Color [place] Urine Appearance Clear Urine pH 8.0 (4.5-8.0) Ur Specific [place] 1.015 (1.000-1.035) Urine Protein Trace H (Negative) Urine Glucose (UA) Negative (Negative) g/dL Urine Ketones Trace H (NEGATIVE) Urine Occult Blood Negative (Negative) Urine Nitrate Negative (Negative) Urine Bilirubin 1+ H (NEGATIVE) Urine Ictotest Positive H (Negative) Urine Urobilinogen >=8.0 (0.2) E.U./dL Ur Leukocyte Esterase Trace H (NEGATIVE) Urine RBC 0-1/hpf (0-5/HPF) Urine WBC 1-5/hpf (0-5/HPF) Ur Squamous Epith Cells 10-30 /hpf H D (0-5/HPF) Ur Transition Epith Cell 1-5/hpf (0-5/HPF) Calcium Oxalate Crystal Occasional H Urine Bacteria Moderate (10-30) H (None) Hyaline Casts 0-1/lpf (None) Urine Mucus 2+ H (Negative) Ur Culture Indicated? Cult not indicated Imaging Data Chest x-ray: Radiologist's impression: [address] [address] XRay Report Signed Patient: Josy Rojas R#: [id number] : 8Acct:[id number] Age/Sex: 59 / FDate of Service: 03/27/19 Loc: ED Accession Number: [id number] Procedure: XR chest 1V Ordering Provider: Mary Burger D.O. PROCEDURE: XR CHEST 1V INDICATIONS: chest pain TECHNIQUE: One view of the chest was acquired. COMPARISON: [facility], , XR CHEST 1V, 03/04/2019, 18:44. FINDINGS: Surgical changes and devices: None. Lungs and pleura: Subtle irregular retrocardiac opacity is present, slightly increased compared to the prior study. There may be a very small left pleural effusion. No pneumothorax. Right lung is clear. Mediastinum: Mediastinal contours appear normal. Heart size is normal. Bones and chest wall: No suspicious bony lesions. Overlying soft tissues appear unremarkable. IMPRESSION: Subtle retrocardiac opacity and questionable very small left pleural effusion, new since the prior study. Consider atelectasis or pneumonia. Dictated by: Shayy Bhakta M.D. on 03/27/2019 at 12:22 Approved by: Shayy Bhakta M.D. on 03/27/2019 at 12:26 US - abdomen: Radiologist's impression: [facility] DATE TYPE STATUS AUTHOR Hx 03/27/19 13:11 Jorje Nance 03/27/19 11:27 Shayy Bhakta 03/04/19 22:09 Carlene Pearson 03/04/19 18:37 Miles Blue 03/04/19 00:00 Miles Blue 01/23/19 20:27 01/23/19 18:42 Shayy Bhakta 01/12/19 12:26 Tariq Polo 01/12/19 11:47 09/12/18 06:44 Jorje Nance 09/12/18 06:44 Jorje Nance 09/11/18 16:13 Isidro Eaton Barbara V 59, F0 1960 DEP ER, ED.LOC - Main ED 89.1kg Weakness Search Chart ONSET Today 14:35 Josy Rojas V 59 F [address] [address] Ultrasound Report Signed Patient: BobJosy R#: [id number] : 8Acct:[id number] Age/Sex: 59 / FDate of Service: 03/27/19 Loc: ED Accession Number: [id number] Procedure: US abdomen complete Ordering Provider: Mary Burger D.O. PROCEDURE: US ABDOMEN COMPLETE INDICATIONS: BLOATING TECHNIQUE: Real-time scanning was performed of the abdominal and retroperitoneal organs, with image documentation. COMPARISON: [facility], CT, CT ABDOMEN PELVIS W CON, 03/04/2019, 20:39. [facility], US, US ABDOMEN LIMITED, 03/04/2019, 22:31. [facility], CR, XR CHEST 1V, 03/27/2019, 11:38. FINDINGS: Liver: The liver demonstrates normal size. The liver demonstrates generalized increased echogenicity. This decreases ultrasound sensitivity for detection of hepatic masses. Gallbladder: Numerous gallstones are seen, with the largest measuring 7 mm. The gallbladder wall is not thickened, measuring 3 mm or less. No specific pericholecystic fluid is seen. The sonographic Hou sign is negative. Biliary ducts: Intrahepatic bile ducts are non-dilated. Extrahepatic bile duct caliber measures 6 mm. Normal is 6-7 mm or less in diameter, or 10 mm or less post-cholecystectomy. Pancreas: Not seen. Spleen: Spleen is normal in size and homogeneous in echotexture. Kidneys: The kidneys demonstrate normal echotexture. Right kidney measures 10 cm long; left kidney measures 7.8 cm long. No hydronephrosis. Focal hyperechogenicity can be seen involving the right mid kidney. No solid masses. Aorta: Not seen, obscured by overlying bowel gas. Iliacs: Not seen, obscured by overlying bowel gas. IVC: Not seen. Miscellaneous: A moderate to prominent amount of ascites is seen. This study is limited by body habitus. IMPRESSION: Moderate to prominent ascites. Hyperechogenicity can be seen involving the mid right kidney. No stones can be seen on the recent prior CT to correlate with this finding. Prominent, fatty liver. Gallstones are seen, without additional sonographic signs of cholecystitis. No biliary dilatation. Limited study, without visualization of the aorta, iliac arteries, IVC, or pancreas. Dictated by: Jorje Nance M.D. on 03/27/2019 at 12:28 Approved by: Jorje Nance M.D. on 03/27/2019 at 12:31 ECG Data Attestation: I personally reviewed and interpreted this ECG as follows: Prior ECG tracings: available for review Interpretation: Sinus rhythm with a ventricular rate of 79 P are 133 QRS of 97 QTC of 421. No significant ST changes appreciated. EKG does appears similar to prior. MDM Narrative Medical decision making narrative: Patient's lab work does not show any acute changes troponin or BNP she does have hyponatremia with elevated LFTs including bilirubin, AST of 96, alk-phos of 178. Patient has a low total protein,She does not show any anemia but does have some macrocytosis on her CBCs within normal WBC and coags show an elevated INR. Patient chest x-ray showed possible subtle retrocardiac opacity questionable very small left pleural effusion she is not having any upper respiratory symptoms consistent with pneumonia or congestive heart failure at this time. I would suspect that she is having worsening of her liver disease as she states she has known cirrhosis and was supposed to see a motion picture actor has not done this. She has also been off her Lasix, she is taking spironolactone. Ultrasound of abdomen was ordered an a ammonia level included. Dr. Guerra, rec's 40mg lasix and spironolactone 100mg daily. can follow with the office as outpatient. Patient and I discussed she prefers to return home. She was able to ambulate today. She is quite swollen in her abdomen and lower e xtremities. She received 80 mg of Lasix and had good urine output. She had a Brewster catheter as bladder scanner showed 400 cc but likely this was incorrect because only 50 cc were out with Brewster catheter. Likely bladder scanner was incorrect because of her ascites. Discussed with patient her meld score is 23, we discussed that that puts her mortality at 19% in the next 3 months. We discussed that is of paramount importance that she take medications regularly, follow-up with Gastroenterology, do not drink any further alcohol to improve her odds. Patient does seem open this, she was given a short script of Lasix in the handwritten script for 5 tablets of 40 mg as her pharmacy will be closed when she returns to the [place]. She has plenty of spironolactone and was given prescriptions that were electronically faxed to her [place] pharmacy. Given referral to Dr. Guerra, she will follow up with Dr. Espinal on Saturday to recheck her potassium and other labs as it sometimes gets low with the Lasix I did discuss she could return at any point this week in for recheck. We did discuss and I offered observation versus admission some place with GI available but patient did defer this. Discharge Plan Departure Patient Disposition: Home Clinical Impression: Swelling of both lower extremities, Ascites, Chronic liver failure Discharge Date/Time: 03/27/19 15:36 Interventions: ED Discharge Assessment Last Done: 03/27/19 15:35 Instructions: DI for Acute Liver Failure Activity Restrictions/Additional Instructions: Follow-up with Dr. Guerra through Gastroenterology. Continue Lasix 40 mg daily. You also may take your spironolactone 100 mg daily. Prescriptions sent to [facility]. Fill the prescription for 5 tablets Lasix this week. Do not drink any alcohol. Return to the ER for worsening symptoms, new fevers, worsening swelling of your lower extremities or abdomen, new shortness of breath, chest pain, persistent cough, black or bloody stools, unusual bruising or bleeding from your gums. Prescriptions: New furosemide [Lasix] 40 mg tablet 40 mg PO DAILY Qty: 20 RF: 0 spironolactone 100 mg tablet 100 mg PO DAILY Qty: 20 RF: 0 No Action metoprolol succinate 25 mg tablet extended release 24 hr 25 mg PO DAILY RF: 0 levothyroxine 300 mcg Tablet 300 mcg PO DAILY RF: 0 pantoprazole 40 mg Tablet,Delayed Release (Dr/Ec) 40 mg PO DAILY PRN (Reason: Acid Reflux) RF: 0 albuterol sulfate [ProAir HFA] 90 mcg/actuation Hfa Aerosol Inhaler 2 puff Inhalation Q4H PRN (Reason: Shortness Of Breath) RF: 0 lisinopril 2.5 mg tablet 2.5 mg PO DAILY RF: 0 apixaban 5 mg tablet 5 mg PO BID RF: 0 Referrals: Jaycob Guerra MD [Non-Staff] -
[2019-03-27 13:03] VITALS: BP 128/77; PULSE 74; RESP 19; O2SAT 98
[2019-03-27] MEDS: FUROSEMIDE 100 MG/10 ML VIAL 80 MG IV (13:03)
[2019-03-27 13:06] LABS: Ictotest Urine Positive (Negative)
--- NOTE | 2019-03-27 13:11 | DI.US.S_ITS ---
PROCEDURE: US ABDOMEN COMPLETE INDICATIONS: BLOATING TECHNIQUE: Real-time scanning was performed of the abdominal and retroperitoneal organs, with image documentation. COMPARISON: [facility], CT, CT ABDOMEN PELVIS W CON, 03/04/2019, 20:39. [facility], US, US ABDOMEN LIMITED, 03/04/2019, 22:31. [facility], CR, XR CHEST 1V, 03/27/2019, 11:38. FINDINGS: Liver: The liver demonstrates normal size. The liver demonstrates generalized increased echogenicity. This decreases ultrasound sensitivity for detection of hepatic masses. Gallbladder: Numerous gallstones are seen, with the largest measuring 7 mm. The gallbladder wall is not thickened, measuring 3 mm or less. No specific pericholecystic fluid is seen. The sonographic Hou sign is negative. Biliary ducts: Intrahepatic bile ducts are non-dilated. Extrahepatic bile duct caliber measures 6 mm. Normal is 6-7 mm or less in diameter, or 10 mm or less post-cholecystectomy. Pancreas: Not seen. Spleen: Spleen is normal in size and homogeneous in echotexture. Kidneys: The kidneys demonstrate normal echotexture. Right kidney measures 10 cm long; left kidney measures 7.8 cm long. No hydronephrosis. Focal hyperechogenicity can be seen involving the right mid kidney. No solid masses. Aorta: Not seen, obscured by overlying bowel gas. Iliacs: Not seen, obscured by overlying bowel gas. IVC: Not seen. Miscellaneous: A moderate to prominent amount of ascites is seen. This study is limited by body habitus. IMPRESSION: Moderate to prominent ascites. Hyperechogenicity can be seen involving the mid right kidney. No stones can be seen on the recent prior CT to correlate with this finding. Prominent, fatty liver. Gallstones are seen, without additional sonographic signs of cholecystitis. No biliary dilatation. Limited study, without visualization of the aorta, iliac arteries, IVC, or pancreas. Dictated by: Jorje Nance M.D. on 03/27/2019 at 12:28 Approved by: Jorje Nance M.D. on 03/27/2019 at 12:31
[2019-03-27 13:34] VITALS: BP 146/87; PULSE 75; RESP 19; O2SAT 100
--- NOTE | 2019-03-27 14:16 | PC.NURSE ---
Patient reports significant increase abd distention and fluid retention in lower extremities. Patient hospitalized at [facility] earlier this month for similar symptoms. Patient denies N/V/D or fever. Patient has noticed decrease urine output.
[2019-03-27 14:35] VITALS: BP 129/87; PULSE 80; RESP 19; O2SAT 100
== END 2019-03-27 15:36 | disposition home or self-care (01) ==
PROVIDERS: Emergency Provider Emergency Medicine
DX: M79.89 Other specified soft tissue disorders (principal); R18.8 Other ascites; K72.10 Chronic hepatic failure without coma
CPT/HCPCS: 36591; 51701; 51798; 71045; 76700; 80053; 81001; 82140; 82550; 83690; 83880; 84484; 85025; 85610; 85730; 93005; 93010; 96374; 99285; J1940

== ENCOUNTER 2019-04-03 15:53 | Emergency (ER) | payer BC, SELFPAY ==
[2019-01-23 21:27] VITALS: BMI 28.4
[2019-04-03 15:58] VITALS: BP 137/85; PULSE 75; RESP 16; TEMP 36.9; O2SAT 100; BMI 27.3
[2019-04-03 17:59] VITALS: BP 122/72; PULSE 75; RESP 16; O2SAT 100
--- NOTE | 2019-04-03 18:05 | ED.ABDPAIN ---
HPI - Abdominal Pain General Chief Complaint: Abdominal Pain Stated Complaint: ABD SWELLING Time Seen by Provider: 04/03/19 18:05 Source: patient Mode of arrival: ambulatory Limitations: no limitations History of Present Illness HPI narrative: Patient is a 59-year-old female with a known history of cirrhosis and also ascites here for evaluation of worsening abdominal distention. Patient was seen here in the emergency department a couple days ago where she was placed on Lasix. Patient states that she does not know what dose of Lasix she is taking however she does take it every morning. She also states that she was placed on spironolactone and has been taking this as well. She states that she has been spending quite a bit of time in a car recently with her knees bent and also is complaining of lower extremity swelling. She states that since her last appointment here in the emergency department she thought that her symptoms were improving but now they are worsening. She denies any chest pain or shortness of breath. No abdominal pain. She states that she has not contacted the GI provider that she was instructed to contact after her last ER visit because she states she lost the paperwork. She has not seen her primary care provider for this. Related Data Home Medications Medication Instructions Recorded Confirmed apixaban 5 mg PO BID 01/12/19 03/27/19 lisinopril 2.5 mg PO DAILY 01/12/19 04/03/19 albuterol sulfate [ProAir HFA] 2 puff INHALATION Q4H PRN 03/27/19 03/27/19 levothyroxine 300 mcg PO DAILY 03/27/19 03/27/19 metoprolol succinate 25 mg PO DAILY 03/27/19 03/27/19 pantoprazole 40 mg PO DAILY PRN 03/27/19 03/27/19 spironolactone 100 mg PO DAILY 04/03/19 04/03/19 Previous Rx's Medication Instructions Recorded furosemide [Lasix] 40 mg PO DAILY #20 tab 03/27/19 furosemide [Lasix] 40 mg PO DAILY #90 tab 04/03/19 Allergies Allergy/AdvReac Type Severity Reaction Status Date / Time No Known Drug Allergies Allergy Verified 04/03/19 15:58 Review of Systems Constitutional Denies fever(s) Cardiovascular Denies chest pain, Denies rapid heart rate, Reports pedal edema, Reports edema, Denies lightheadedness, Denies dyspnea and Denies dyspnea on exertion Respiratory Denies dyspnea and Denies dyspnea on exertion Gastrointestinal Gastrointestinal: Denies abdominal pain, Reports bloating, Denies change in stool character, Denies diarrhea, Denies nausea and Denies vomiting Genitourinary Denies dysuria Musculoskeletal Denies myalgias and Denies arthralgias Integumentary/Breasts Denies rash Neurologic Denies behavioral changes Psychiatric Denies behavioral changes Hematologic/Lymphatic Denies easy bleeding and Denies easy bruising [facility] Medical History Abdominal hernia (Acute) Atrial fibrillation (Acute) Chronic anticoagulation (Acute) History of cardioversion (Acute) Hypothyroid (Acute) Rosacea (Acute) Social History household members: children and friend(s) other: Lives on [address], has adopted 3 year old son. Smoking Status: Never smoker alcohol intake: former substance use type: does not use Exam Initial Vital Signs Initial Vital Signs: Vital Signs Temperature 98.5 F 04/03/19 15:58 Pulse Rate 75 04/03/19 15:58 Respiratory Rate 16 04/03/19 15:58 Blood Pressure 137/85 04/03/19 15:58 Pulse Oximetry 100 04/03/19 15:58 Const General: cooperative and comfortable Orientation: alert, awake and oriented x3 HENMT Head: normal to inspection and normocephalic Resp Effort & Inspection: normal respiratory effort Auscultation: clear to auscultation bilaterally Cardio Rate: regular rate Rhythm: regular rhythm GI Inspection: distended Palpation: soft, No firm, No tender and ascites Skin Lesions: no lesions Rashes: no rashes Neuro General: alert and awake Speech: speech normal Extrem General: normal to inspection, capillary refill normal and edema Psych Appearance: grossly normal and well kempt Course Orders Ordered: Discontinued Medications Furosemide (Lasix) 60 mg IV NOW ONE Stop: 04/03/19 18:59 Last Admin: 04/03/19 19:23 Dose: 60 mg Potassium Chloride 20 meq/ (Sodium Chloride) 260 mls @ 130 mls/hr IV NOW ONE Stop: 04/03/19 20:57 Last Infusion: 04/03/19 22:43 Dose: 0 mls/hr Admin: 04/03/19 19:54 Dose: 130 mls/hr Potassium Chloride (Potassium Chloride) 40 meq PO NOW ONE Stop: 04/03/19 18:59 Last Admin: 04/03/19 19:24 Dose: 40 meq Vital Signs - 8 hr 04/03/19 19:36 04/03/19 21:11 04/03/19 21:36 Pulse Rate 77 77 76 Respiratory Rate 19 18 Blood Pressure Blood Pressure [Right Arm] 129/84 126/79 122/76 Pulse Oximetry 100 96 04/03/19 22:52 Pulse Rate 75 Respiratory Rate Blood Pressure 132/83 Blood Pressure [Right Arm] Pulse Oximetry 100 MDM - Abdominal Pain Lab Data Attestation: I reviewed the patient's lab results. Result diagrams: 04/03/19 17:45 04/03/19 17:45 Lab Results 04/03/19 04/03/19 04/03/19 Range/Units 17:45 17:45 17:45 WBC 3.2 L (4.5-11.0) X10^3/uL RBC 3.17 L (4.0-5.2) X10^6/uL Hgb 11.6 L (12.0-16.0) g/dL Hct 33.5 L (36-46) % MCV 105.7 H (80-100) fL MCH 36.7 H (26-34) PG MCHC 34.7 (30-36) % RDW 14.3 (11.6-14.8) % Plt Count 151 (150-400) X10^3/uL Neut % (Auto) 55.7 (50-75) % Lymph % (Auto) 28.7 (25-40) % [place] % (Auto) 14.1 H (3-14) % Eos % (Auto) 0.8 L (2-4) % Baso % (Auto) 0.7 (0-2) % Neut # (Auto) 1800 (8432-1600) /uL Lymph # (Auto) 900 L (3132-4536) /uL [place] # (Auto) 500 (0-900) /uL Eos # (Auto) 0 (0-450) /uL Baso # (Auto) 0 (0-100) /uL PT (10.1-12.7) SECONDS INR (0.9-1.3) APTT (26.4-36.2) SECONDS Sodium 128 L (137-145) mmol/L Potassium 2.6 L* D (3.4-5.1) mmol/L Chloride 91 L (98-107) mmol/L Carbon Dioxide 30 (22-32) mmol/L BUN 7 (7-17) mg/dL Creatinine 0.60 (0.52-1.04) mg/dL Estimated GFR > 60.0 (>60) mL/min BUN/Creatinine Ratio 11.7 (6-22) Glucose 104 (80-110) mg/dL Calcium 7.7 L (8.4-10.2) mg/dL Total Bilirubin 1.6 H (0.2-1.3) mg/dL AST 62 H (14-36) IU/L ALT 25 (9-52) IU/L Alkaline Phosphatase 140 H (38-126) U/L Ammonia < 9.0 L (9-30) umol/L Total Protein 5.8 L (6.3-8.2) g/dL Albumin 2.7 L (3.5-5.0) g/dL Globulin 3.1 (1.7-4.1) g/dL Albumin/Globulin Ratio 0.9 L (1.0-2.8) Lipase (23-300) U/L 04/03/19 04/03/19 04/03/19 Range/Units 17:45 17:45 17:45 WBC (4.5-11.0) X10^3/uL RBC (4.0-5.2) X10^6/uL Hgb (12.0-16.0) g/dL Hct (36-46) % MCV (80-100) fL MCH (26-34) PG MCHC (30-36) % RDW (11.6-14.8) % Plt Count (150-400) X10^3/uL Neut % (Auto) (50-75) % Lymph % (Auto) (25-40) % [place] % (Auto) (3-14) % Eos % (Auto) (2-4) % Baso % (Auto) (0-2) % Neut # (Auto) (7893-7795) /uL Lymph # (Auto) (3569-7397) /uL [place] # (Auto) (0-900) /uL Eos # (Auto) (0-450) /uL Baso # (Auto) (0-100) /uL PT 16.0 H (10.1-12.7) SECONDS INR 1.4 H (0.9-1.3) APTT 32 D (26.4-36.2) SECONDS Sodium (137-145) mmol/L Potassium (3.4-5.1) mmol/L Chloride (98-107) mmol/L Carbon Dioxide (22-32) mmol/L BUN (7-17) mg/dL Creatinine (0.52-1.04) mg/dL Estimated GFR (>60) mL/min BUN/Creatinine Ratio (6-22) Glucose (80-110) mg/dL Calcium (8.4-10.2) mg/dL Total Bilirubin (0.2-1.3) mg/dL AST (14-36) IU/L ALT (9-52) IU/L Alkaline Phosphatase (38-126) U/L Ammonia (9-30) umol/L Total Protein (6.3-8.2) g/dL Albumin (3.5-5.0) g/dL Globulin (1.7-4.1) g/dL Albumin/Globulin Ratio (1.0-2.8) Lipase 26 D (23-300) U/L MDM Narrative Medical decision making narrative: Patient does have abdominal distention and lower extremity swelling. Patient is a fairly poor historian when it comes to knowing what medication she is taking. She has not followed up with GI because she lost the information after her last ER visit. Given her elevated INR will hold on paracentesis here in the emergency department. Patient is hypokalemic which I suspect is secondary to the Lasix. This was replaced here in the emergency department. She states that she has potassium at home from when she has been on diuretics in the past. She was instructed to start taking this medication. She was given Lasix here in the emergency department and urinated. She states that she is actually feeling much better after this. We had a long discussion regarding her Lasix. Will have her increase her Lasix at home. Patient was also given the information for the GI provider once more. She is instructed that she needed to contact this provider for follow-up. Patient was given strict return precautions. She expressed understanding plan. Discharge Plan Departure Patient Disposition: Home Clinical Impression: Swelling of both lower extremities, Ascites, Hypokalemia Discharge Date/Time: 04/03/19 22:53 Interventions: ED Discharge Assessment Last Done: 04/03/19 22:52 Instructions: Ascites, DI for Dependent Edema Activity Restrictions/Additional Instructions: Continue to take your spironolactone in the morning. You need to start taking 10 mEq of potassium on a daily basis. Check the dose of your Lasix that you have been taking at home. If you have not been taking 40 mg a day then start taking 40 mg on a daily basis. If you have been taking 40 mg then increase it to 60 mg a day. You also need to contact Dr. Guerra's gastroenterology office and [place]. The phone number is [phone]. Return to the emergency department for any new or worsening symptoms Prescriptions: New furosemide [Lasix] 20 mg tablet 40 mg PO DAILY Qty: 90 RF: 0 No Action metoprolol succinate 25 mg tablet extended release 24 hr 25 mg PO DAILY RF: 0 levothyroxine 300 mcg Tablet 300 mcg PO DAILY RF: 0 pantoprazole 40 mg Tablet,Delayed Release (Dr/Ec) 40 mg PO DAILY PRN (Reason: Acid Reflux) RF: 0 albuterol sulfate [ProAir HFA] 90 mcg/actuation Hfa Aerosol Inhaler 2 puff Inhalation Q4H PRN (Reason: Shortness Of Breath) RF: 0 furosemide [Lasix] 40 mg tablet 40 mg PO DAILY Qty: 20 RF: 0 spironolactone 50 mg Tablet 100 mg PO DAILY RF: 0 lisinopril 2.5 mg tablet 2.5 mg PO DAILY RF: 0 apixaban 5 mg tablet 5 mg PO BID RF: 0
[2019-04-03 18:16] LABS: Add Manual Diff / Slide Review NO; Basophils Absolute Auto 0 /uL (0-100); Basophils Percent Auto 0.7 % (0-2); Eosinophils Absolute Auto 0 /uL (0-450); Eosinophils Percent Auto 0.8 % (2-4); Hematocrit 33.5 % (36-46); Hemoglobin 11.6 g/dL (12.0-16.0); Lymphocytes Absolute Auto 900 /uL (1100-4500); Lymphocytes Percent Auto 28.7 % (25-40); Mean Corpuscular HGB Conc 34.7 % (30-36); Mean Corpuscular Hemoglobin 36.7 PG (26-34); Mean Corpuscular Volume 105.7 fL (80-100); Monocytes Absolute Auto 500 /uL (0-900); Monocytes Percent Auto 14.1 % (3-14); Neutrophils Absolute Auto 1800 /uL (1500-7000); Neutrophils Percent Auto 55.7 % (50-75); Platelet Count 151 X10^3/uL (150-400); Red Blood Cell Count 3.17 X10^6/uL (4.0-5.2); Red Cell Distribution Width 14.3 % (11.6-14.8); White Blood Cell Count 3.2 X10^3/uL (4.5-11.0)
[2019-04-03 18:20] LABS: Alanine Aminotransferase 25 IU/L (9-52); Albumin 2.7 g/dL (3.5-5.0); Albumin Globulin Ratio 0.9 (1.0-2.8); Alkaline Phosphatase 140 U/L (38-126); Ammonia (NH3) < 9.0 umol/L (9-30); Aspartate Aminotransferase 62 IU/L (14-36); BUN Creatinine Ratio 11.7 (6-22); Bilirubin Total 1.6 mg/dL (0.2-1.3); Blood Urea Nitrogen 7 mg/dL (7-17); Calcium 7.7 mg/dL (8.4-10.2); Carbon Dioxide 30 mmol/L (22-32); Chloride 91 mmol/L (98-107); Estimated Glomerular Filt Rate > 60.0 mL/min (>60); Globulin 3.1 g/dL (1.7-4.1); Glucose 104 mg/dL (80-110); HEMOLYSIS < 15 (0-50); Sodium 128 mmol/L (137-145); Total Protein 5.8 g/dL (6.3-8.2)
[2019-04-03 18:23] LABS: INR 1.4 (0.9-1.3)
[2019-04-03 18:29] LABS: Lipase 26 U/L (23-300); Potassium 2.6 mmol/L (3.4-5.1)
[2019-04-03 18:52] LABS: PTT Partial Thromboplastin Tim 32 SECONDS (26.4-36.2)
[2019-04-03] MEDS: FUROSEMIDE 100 MG/10 ML VIAL 60 MG IV (19:23)
[2019-04-03] MEDS: POTASSIUM CHLORIDE 20 MEQ/15 ML UDC 40 MEQ PO (19:24)
[2019-04-03 19:36] VITALS: BP 129/84; PULSE 77; RESP 19; O2SAT 100
[2019-04-03] MEDS: POTASSIUM CHLORIDE 20 MEQ in SODIUM CHLORIDE 0.9% 250 ML 130 ML IV (19:54)
[2019-04-03 21:11] VITALS: BP 126/79; PULSE 77
[2019-04-03 21:36] VITALS: BP 122/76; PULSE 76; RESP 18; O2SAT 96
[2019-04-03 22:52] VITALS: BP 132/83; PULSE 75; O2SAT 100
== END 2019-04-03 22:53 | disposition home or self-care (01) ==
PROVIDERS: Emergency Medicine; Emergency Provider Emergency Medicine
DX: E87.6 Hypokalemia (principal); R18.8 Other ascites
CPT/HCPCS: 36591; 80053; 82140; 83690; 85025; 85610; 85730; 96361; 96374; 99283; 99284; J1940; J3480

== ENCOUNTER 2019-05-18 12:19 | Inpatient (IN) | payer BC, SELFPAY ==
[2019-01-23 21:27] VITALS: BMI 28.4
[2019-05-18] VITALS (10 sets, daily range): BP systolic 98–131; BP diastolic 54–77; PULSE 61–74; RESP 14–22; TEMP 36.6–37; O2SAT 97–100; BMI 24.3
--- NOTE | 2019-05-18 12:35 | ED_ITS ---
HPI - General Adult General Chief complaint: Trauma Stated complaint: weakness / falls/ on Eliquis Time Seen by Provider: 05/18/19 12:28 Source: patient Mode of arrival: ambulatory Limitations: no limitations History of Present Illness HPI narrative: 59-year-old female arrives from [place] for evaluation of generalized weakness, fall 2 days ago. On Eliquis. Has been seen multiple times in the emergency department in the past for reported cirrhosis. Has not followed up with GI providers. Has not tried anything for symptoms prior to arrival. She stated that she did not come in the day after her fall because she did not think that she needed to. No reported injuries from the fall. Related Data Home Medications Medication Instructions Recorded Confirmed apixaban 5 mg PO BID 01/12/19 05/18/19 lisinopril 2.5 mg PO DAILY 01/12/19 05/18/19 albuterol sulfate [ProAir HFA] 2 puff INHALATION Q4H PRN 03/27/19 05/18/19 levothyroxine 300 mcg PO DAILY 03/27/19 05/18/19 metoprolol succinate 50 mg PO BID 03/27/19 05/18/19 pantoprazole 40 mg PO DAILY PRN 03/27/19 05/18/19 spironolactone 100 mg PO DAILY 04/03/19 05/18/19 Previous Rx's Medication Instructions Recorded furosemide [Lasix] 40 mg PO DAILY #90 tab 04/03/19 Allergies Allergy/AdvReac Type Severity Reaction Status Date / Time No Known Drug Allergies Allergy Verified 05/18/19 12:42 Review of Systems Constitutional Denies chills, Reports fatigue, Denies fever(s), Reports frequent falls, Denies headache(s), Reports lethargy and Reports malaise Eyes Denies change in vision ENT Ears, Nose, Mouth, and Throat: Denies vertigo, Denies dizziness, Denies headache(s), Denies disequilibrium and Denies sore throat Cardiovascular Denies chest pain and Denies dyspnea Respiratory Denies dyspnea Gastrointestinal Gastrointestinal: Reports abdominal pain, Reports bloating, Denies change in stool character, Denies constipation, Denies nausea and Denies vomiting Genitourinary Denies dysuria and Denies vaginal discharge Musculoskeletal Denies myalgias and Denies arthralgias Integumentary/Breasts Denies new lesions and Denies rash Neurologic Reports behavioral changes, Denies vertigo, Denies dizziness, Reports frequent falls, Denies headache(s), Denies paresthesias and Denies disequilibrium Psychiatric Reports behavioral changes Endocrine Reports fatigue Hematologic/Lymphatic Denies easy bleeding and Denies easy bruising PFSH Surgical History Hx of gastric bypass (Acute) Family History Mother No known health problems Father No known health problems Social History household members: children, friend(s) and none other: Lives on [place], has adopted 3 year old son. Smoking Status: Never smoker alcohol intake: former substance use type: does not use Family History Mother No known health problems Father No known health problems Social History household members: children, friend(s) and none other: Lives on [place], has adopted 3 year old son. Smoking Status: Never smoker alcohol intake: former substance use type: does not use Exam Initial Vital Signs Initial Vital Signs: Vital Signs Temperature 98.1 F 05/18/19 12:15 Pulse Rate 72 05/18/19 12:15 Respiratory Rate 16 05/18/19 12:15 Blood Pressure 131/77 05/18/19 12:15 Pulse Oximetry 97 05/18/19 12:15 Const General: cooperative, comfortable, disheveled and ill appearing Orientation: alert, awake and oriented x3 HENMT Head: normal to inspection and normocephalic Nose: external nose normal Face and sinus: normal facial exam Mouth: oral mucosae normal Eyes Sclera: scleral abnormality bilaterally other (Jaundice) Resp Effort & Inspection: normal respiratory effort Auscultation: clear to auscultation bilaterally Cardio Rate: regular rate Rhythm: regular rhythm Pulses: radial pulses present GI Inspection: distended Palpation: soft, No firm, tender (Diffuse tender) and ascites Skin Lesions: no lesions Rashes: no rashes Wounds: no wounds Neuro General: alert, awake and oriented x3 Cognition: normal cognition Speech: speech normal Extrem General: normal to inspection, capillary refill normal and No edema Psych Appearance: grossly normal and disheveled Scores GCS Tramaine coma scale eye opening: Spontaneous [place] coma scale verbal response: Orientated [place]aine coma scale motor response: Obey commands [place] coma scale total score: 15 Course Orders Ordered: ED Orders 05/18/19 12:22 EKG-12 Lead Stat 05/18/19 12:39 US abdomen complete Stat 05/18/19 12:49 CT head/brain wo con Stat 05/18/19 13:55 Urinalysis and Microscopic Stat Urine Culture Stat 05/18/19 14:00 Acetaminophen Stat Ammonia (NH3) Stat B Type Natriuretic Peptide Stat Basic Metabolic Panel Stat Complete Blood Count AUTO DIFF Stat Hepatic (Liver) Panel Stat Lactate (Lactic Acid) Stat Lipase Stat Partial Thromboplastin Time Stat Prothrombin Time INR Stat 05/18/19 18:23 Consult to Dietitian, Adult Routine Consult to Pastoral Services Routine Sodium Chloride (Normal Saline 0.9%) 1,000 mls @ 125 mls/hr IV CONT MAURICE Last Infusion: 05/18/19 17:36 Dose: 0 mls/hr Admin: 05/18/19 13:38 Dose: 125 mls/hr Discontinued Medications Potassium Chloride 20 meq/ (Sodium Chloride) 260 mls @ 130 mls/hr IV NOW ONE Stop: 05/18/19 17:38 Last Admin: 05/18/19 15:57 Dose: 130 mls/hr Potassium Chloride (Potassium Chloride) 40 meq PO NOW ONE Stop: 05/18/19 15:39 Last Admin: 05/18/19 15:47 Dose: 40 meq Vital Signs - 8 hr 05/18/19 12:15 05/18/19 12:52 05/18/19 13:00 Temperature 98.1 F Pulse Rate 72 74 70 Respiratory Rate 16 18 14 Blood Pressure 131/77 Blood Pressure [Left Arm] 131/77 123/77 Pulse Oximetry 97 98 99 05/18/19 14:06 05/18/19 14:30 05/18/19 15:38 Temperature Pulse Rate 66 68 71 Respiratory Rate 18 17 16 Blood Pressure Blood Pressure [Left Arm] 110/72 122/69 109/67 Pulse Oximetry 97 99 100 05/18/19 16:30 05/18/19 17:30 05/18/19 17:55 Temperature 97.8 F Pulse Rate 68 61 71 Respiratory Rate 17 20 22 Blood Pressure 103/65 Blood Pressure [Left Arm] 103/66 98/54 L Pulse Oximetry 99 97 100 Medical Decision Making Medical Records Medical records reviewed: Yes I reviewed the patient's medical records. Lab Data Lab results reviewed: Yes I reviewed the patient's lab results. Result diagrams: 05/18/19 14:00 05/18/19 14:00 Lab Results 05/18/19 05/18/19 05/18/19 Range/Units 13:55 14:00 14:00 WBC 4.4 L (4.5-11.0) X10^3/uL RBC 3.19 L (4.0-5.2) X10^6/uL Hgb 10.8 L (12.0-16.0) g/dL Hct 31.1 L (36-46) % MCV 97.6 (80-100) fL MCH 34.0 (26-34) PG MCHC 34.8 (30-36) % RDW 14.7 (11.6-14.8) % Plt Count 154 (150-400) X10^3/uL Neut % (Auto) 63.1 (50-75) % Lymph % (Auto) 24.9 L (25-40) % Holmes % (Auto) 10.0 (3-14) % Eos % (Auto) 0.6 L (2-4) % Baso % (Auto) 1.4 (0-2) % Neut # (Auto) 2800 (7204-3337) /uL Lymph # (Auto) 1100 (3350-0821) /uL Holmes # (Auto) 400 (0-900) /uL Eos # (Auto) 0 (0-450) /uL Baso # (Auto) 100 (0-100) /uL PT (10.1-12.7) SECONDS INR (0.9-1.3) APTT (26.4-36.2) SECONDS Sodium (137-145) mmol/L Potassium (3.4-5.1) mmol/L Chloride (98-107) mmol/L Carbon Dioxide (22-32) mmol/L BUN (7-17) mg/dL Creatinine (0.52-1.04) mg/dL Estimated GFR (>60) mL/min BUN/Creatinine Ratio (6-22) Glucose (80-110) mg/dL Lactate 1.2 (0.7-2.1) mmol/L Calcium (8.4-10.2) mg/dL Total Bilirubin (0.2-1.3) mg/dL Conjugated Bilirubin (0.0-0.3) md/dL Unconjugated Bilirubin (0.0-1.1) mg/dL AST (14-36) IU/L ALT (9-52) IU/L Alkaline Phosphatase (38-126) U/L Ammonia (9-30) umol/L B-Natriuretic Peptide < 100 (<100) Total Protein (6.3-8.2) g/dL Albumin (3.5-5.0) g/dL Globulin (1.7-4.1) g/dL Albumin/Globulin Ratio (1.0-2.8) Lipase (23-300) U/L Urine Color [place] Urine Appearance Sl cloudy Urine pH 8.0 (4.5-8.0) Ur Specific [place] 1.010 (1.000-1.035) Urine Protein Negative (Negative) Urine Glucose (UA) Negative (Negative) g/dL Urine Ketones Negative (NEGATIVE) Urine Occult Blood Trace-intact (Negative) Urine Nitrate Negative (Negative) Urine Bilirubin Negative (NEGATIVE) Urine Urobilinogen >=8.0 (0.2) E.U./dL Ur Leukocyte Esterase 3+ H (NEGATIVE) Urine RBC 5-10/hpf H (0-5/HPF) Urine WBC 30-100/hpf H (0-5/HPF) Ur Squamous Epith Cells 1-5 /hpf D (0-5/HPF) Urine Bacteria Many (>30) H (None) Ur Culture Indicated? Specimen cultured Acetaminophen (10-30) ug/mL 05/18/19 05/18/19 05/18/19 Range/Units 14:00 14:00 14:00 WBC (4.5-11.0) X10^3/uL RBC (4.0-5.2) X10^6/uL Hgb (12.0-16.0) g/dL Hct (36-46) % MCV (80-100) fL MCH (26-34) PG MCHC (30-36) % RDW (11.6-14.8) % Plt Count (150-400) X10^3/uL Neut % (Auto) (50-75) % Lymph % (Auto) (25-40) % Holmes % (Auto) (3-14) % Eos % (Auto) (2-4) % Baso % (Auto) (0-2) % Neut # (Auto) (7678-2197) /uL Lymph # (Auto) (9458-2515) /uL Holmes # (Auto) (0-900) /uL Eos # (Auto) (0-450) /uL Baso # (Auto) (0-100) /uL PT 13.2 H (10.1-12.7) SECONDS INR 1.1 (0.9-1.3) APTT 27 D (26.4-36.2) SECONDS Sodium (137-145) mmol/L Potassium (3.4-5.1) mmol/L Chloride (98-107) mmol/L Carbon Dioxide (22-32) mmol/L BUN (7-17) mg/dL Creatinine (0.52-1.04) mg/dL Estimated GFR (>60) mL/min BUN/Creatinine Ratio (6-22) Glucose (80-110) mg/dL Lactate (0.7-2.1) mmol/L Calcium (8.4-10.2) mg/dL Total Bilirubin (0.2-1.3) mg/dL Conjugated Bilirubin (0.0-0.3) md/dL Unconjugated Bilirubin (0.0-1.1) mg/dL AST (14-36) IU/L ALT (9-52) IU/L Alkaline Phosphatase (38-126) U/L Ammonia < 9.0 L (9-30) umol/L B-Natriuretic Peptide (<100) Total Protein (6.3-8.2) g/dL Albumin (3.5-5.0) g/dL Globulin (1.7-4.1) g/dL Albumin/Globulin Ratio (1.0-2.8) Lipase (23-300) U/L Urine Color Urine Appearance Urine pH (4.5-8.0) Ur Specific [place] (1.000-1.035) Urine Protein (Negative) Urine Glucose (UA) (Negative) g/dL Urine Ketones (NEGATIVE) Urine Occult Blood (Negative) Urine Nitrate (Negative) Urine Bilirubin (NEGATIVE) Urine Urobilinogen (0.2) E.U./dL Ur Leukocyte Esterase (NEGATIVE) Urine RBC (0-5/HPF) Urine WBC (0-5/HPF) Ur Squamous Epith Cells (0-5/HPF) Urine Bacteria (None) Ur Culture Indicated? Acetaminophen < 10 L (10-30) ug/mL 05/18/19 05/18/19 Range/Units 14:00 14:00 WBC (4.5-11.0) X10^3/uL RBC (4.0-5.2) X10^6/uL Hgb (12.0-16.0) g/dL Hct (36-46) % MCV (80-100) fL MCH (26-34) PG MCHC (30-36) % RDW (11.6-14.8) % Plt Count (150-400) X10^3/uL Neut % (Auto) (50-75) % Lymph % (Auto) (25-40) % Holmes % (Auto) (3-14) % Eos % (Auto) (2-4) % Baso % (Auto) (0-2) % Neut # (Auto) (7318-0249) /uL Lymph # (Auto) (4118-1774) /uL Holmes # (Auto) (0-900) /uL Eos # (Auto) (0-450) /uL Baso # (Auto) (0-100) /uL PT (10.1-12.7) SECONDS INR (0.9-1.3) APTT (26.4-36.2) SECONDS Sodium 124 L (137-145) mmol/L Potassium 2.6 L* (3.4-5.1) mmol/L Chloride 79 L (98-107) mmol/L Carbon Dioxide 37 H (22-32) mmol/L BUN 13 (7-17) mg/dL Creatinine 0.60 (0.52-1.04) mg/dL Estimated GFR > 60.0 (>60) mL/min BUN/Creatinine Ratio 21.7 (6-22) Glucose 116 H (80-110) mg/dL Lactate (0.7-2.1) mmol/L Calcium 8.0 L (8.4-10.2) mg/dL Total Bilirubin 4.7 H Cancelled (0.2-1.3) mg/dL Conjugated Bilirubin 0.0 (0.0-0.3) md/dL Unconjugated Bilirubin 3.9 H (0.0-1.1) mg/dL AST 61 H Cancelled (14-36) IU/L ALT 27 Cancelled (9-52) IU/L Alkaline Phosphatase 120 Cancelled (38-126) U/L Ammonia (9-30) umol/L B-Natriuretic Peptide (<100) Total Protein 5.6 L Cancelled (6.3-8.2) g/dL Albumin 2.5 L Cancelled (3.5-5.0) g/dL Globulin 3.1 Cancelled (1.7-4.1) g/dL Albumin/Globulin Ratio 0.8 L Cancelled (1.0-2.8) Lipase 18 L (23-300) U/L Urine Color Urine Appearance Urine pH (4.5-8.0) Ur Specific [place] (1.000-1.035) Urine Protein (Negative) Urine Glucose (UA) (Negative) g/dL Urine Ketones (NEGATIVE) Urine Occult Blood (Negative) Urine Nitrate (Negative) Urine Bilirubin (NEGATIVE) Urine Urobilinogen (0.2) E.U./dL Ur Leukocyte Esterase (NEGATIVE) Urine RBC (0-5/HPF) Urine WBC (0-5/HPF) Ur Squamous Epith Cells (0-5/HPF) Urine Bacteria (None) Ur Culture Indicated? Acetaminophen (10-30) ug/mL Imaging Data US - abdomen: Radiologist's impression: Josy Rojas V 59 [address] 1960 [place] [address] Ultrasound Report Signed Patient: Josy Rojas R#: [id number] : 8Acct:[id number] Age/Sex: 59 / FDate of Service: 05/18/19 Loc: ED Accession Number: [id number] Procedure: US abdomen complete Ordering Provider: Eric Tao D.O. PROCEDURE: US ABDOMEN COMPLETE INDICATIONS: RIGHT UPPER QUADRANT PAIN; KNOWN ASCITIES TECHNIQUE: Real-time scanning was performed of the abdominal and retroperitoneal organs, with image documentation. COMPARISON: [facility], US, US ABDOMEN COMPLETE, 03/27/2019, 12:55. [facility], CT, CT ABDOMEN PELVIS W CON, 03/04/2019, 20:39. FINDINGS: Liver: The liver is enlarged and measures 20.5 cm in dimension. Heterogeneity and increased echogenicity of the liver is identified. No definite liver lesions are evident. However, subtle liver lesions may be obscured. Gallbladder: The gallbladder is normal in size without gallbladder wall thickening. Tiny gallstones versus sludge appears to be present. Biliary ducts: Intrahepatic bile ducts are non-dilated. Extrahepatic bile duct caliber measures 5 mm. Normal is 6-7 mm or less in diameter, or 10 mm or less post-cholecystectomy. Pancreas: Obscured by bowel gas. Spleen: Spleen is normal in size and homogeneous in echotexture. Kidneys: Kidneys are normal in size and echotexture. Right kidney measures 9.6 cm long; left kidney measures 9.7 cm long. No hydronephrosis or nephrolithiasis. No solid masses. Aorta, iliac arteries, and IVC: Obscured by bowel gas Miscellaneous: Moderate amount of ascites is present. IMPRESSION: 1. Cirrhotic liver morphology. The liver is enlarged. No definite liver lesions. The need for further evaluation utilizing MRI should be based on clinical grounds. 2. Probable cholelithiasis. No evidence of acute cholecystitis. 3. Moderate abdominal ascites. Dictated by: Isidro Eaton M.D. on 05/18/2019 at 12:40 Approved by: Isidro Eaton M.D. on 05/18/2019 at 12:42 CT scan - head: Radiologist's impression: [place] [address] CT Scan Report Signed Patient: Josy Rojas [facility]#: [id number] : 8Acct:[id number] Age/Sex: 59 / FDate of Service: 05/18/19 Loc: ED Accession Number: [id number] Procedure: CT head/brain wo con Ordering Provider: Eric Tao D.O. PROCEDURE: CT HEAD/BRAIN WO CON INDICATIONS: Fall on Eliquis TECHNIQUE: Noncontrast 4.5 mm thick angled axial sections acquired from the foramen magnum to the vertex, with coronal and sagittal reformats. For radiation dose reduction, the following was used: automated exposure control, adjustment of mA and/or kV according to patient size. COMPARISON: [facility], CT, CT HEAD/BRAIN WO CON, 01/23/2019, 18:55. FINDINGS: Image quality: Excellent. CSF spaces: Basal cisterns are patent. No extra-axial fluid collections. Ventricles are normal in size and shape. Brain: No midline shift. No intracranial masses or hemorrhage. Myles-white matter interface is normal. Age-related volume loss and mild small vessel ischemic change. Tiny bilateral old lacunar infarcts. Skull and face: Calvarium and visualized facial bones are intact, without suspicious lesions. Sinuses: Visualized sinuses and mastoids are clear. IMPRESSION: 1. Age-related volume loss, mild small vessel ischemic change, tiny old lacunar infarcts. 2. No evidence acute stroke, hemorrhage, or mass. Dictated by: Castillo Lew M.D. on 05/18/2019 at 13:01 Approved by: Castillo Lew M.D. on 05/18/2019 at 13:03 ECG Data Attestation: I personally reviewed and interpreted this ECG as follows: Prior ECG tracings: not available for review Interpretation: Sinus rhythm. Ventricular rate is 68 Normal axis Normal QRS He sees Nonspecific ST T wave changes MDM Narrative Medical decision making narrative: Patient does have an elevated bilirubin today. Right upper quadrant ultrasound does not show an acute gallbladder pathology. She has reported history of cirrhosis and a moderate amount of ascites. She is also hypokalemic and hyponatremic. Her potassium was replaced here in the ER. Patient asked multiple times for Brew[place] however was explained to her that she did not need a Brewster and this was a infection control issue. I did discuss her elevated LFTs and bilirubin with Gastroenterology on-call at [facility] who stated that there was not an emergent GI issue needing any emergent procedures. He recommended a paracentesis of the ascites and also MRCP if it was felt that this could potentially be gallbladder pathology. Her weakness could also be secondary to her hyponatremia. Her head CT was unremarkable. There was no other reported injuries from the fall 2 days ago. This was a modified trauma secondary to her fall and use of anticoagulation. Discussed the case with the hospitalist to admit for further evaluation treatment. Discussed admission with the patient expressed understanding agreement. Discharge Plan Departure Patient Disposition: Admitted As Inpatient Clinical Impression: Hyperbilirubinemia, Hyponatremia, Hypokalemia Ascites Qualifiers: Ascites type: other type Qualified Code(s): R18.8 - Other ascites Cirrhosis Qualifiers: Hepatic cirrhosis type: unspecified hepatic cirrhosis Ascites presence: with ascites Qualified Code(s): K74.60 - Unspecified cirrhosis of liver Discharge Date/Time: 05/18/19 17:30 Interventions: ED Discharge Assessment Last Done: 05/18/19 17:33 Admit Date/Time: 05/18/19 17:31 Admit Provider: Lorena Cortez
--- NOTE | 2019-05-18 12:39 | DI.US.S_ITS ---
PROCEDURE: US ABDOMEN COMPLETE INDICATIONS: RIGHT UPPER QUADRANT PAIN; KNOWN ASCITIES TECHNIQUE: Real-time scanning was performed of the abdominal and retroperitoneal organs, with image documentation. COMPARISON: [facility], US, US ABDOMEN COMPLETE, 03/27/2019, 12:55. [facility], CT, CT ABDOMEN PELVIS W CON, 03/04/2019, 20:39. FINDINGS: Liver: The liver is enlarged and measures 20.5 cm in dimension. Heterogeneity and increased echogenicity of the liver is identified. No definite liver lesions are evident. However, subtle liver lesions may be obscured. Gallbladder: The gallbladder is normal in size without gallbladder wall thickening. Tiny gallstones versus sludge appears to be present. Biliary ducts: Intrahepatic bile ducts are non-dilated. Extrahepatic bile duct caliber measures 5 mm. Normal is 6-7 mm or less in diameter, or 10 mm or less post-cholecystectomy. Pancreas: Obscured by bowel gas. Spleen: Spleen is normal in size and homogeneous in echotexture. Kidneys: Kidneys are normal in size and echotexture. Right kidney measures 9.6 cm long; left kidney measures 9.7 cm long. No hydronephrosis or nephrolithiasis. No solid masses. Aorta, iliac arteries, and IVC: Obscured by bowel gas Miscellaneous: Moderate amount of ascites is present. IMPRESSION: 1. Cirrhotic liver morphology. The liver is enlarged. No definite liver lesions. The need for further evaluation utilizing MRI should be based on clinical grounds. 2. Probable cholelithiasis. No evidence of acute cholecystitis. 3. Moderate abdominal ascites. Dictated by: Isidro Eaton M.D. on 05/18/2019 at 12:40 Approved by: Isidro Eaton M.D. on 05/18/2019 at 12:42
--- NOTE | 2019-05-18 12:49 | DI.CT.S_ITS ---
PROCEDURE: CT HEAD/BRAIN WO CON INDICATIONS: Fall on Eliquis TECHNIQUE: Noncontrast 4.5 mm thick angled axial sections acquired from the foramen magnum to the vertex, with coronal and sagittal reformats. For radiation dose reduction, the following was used: automated exposure control, adjustment of mA and/or kV according to patient size. COMPARISON: [facility], CT, CT HEAD/BRAIN WO CON, 01/23/2019, 18:55. FINDINGS: Image quality: Excellent. CSF spaces: Basal cisterns are patent. No extra-axial fluid collections. Ventricles are normal in size and shape. Brain: No midline shift. No intracranial masses or hemorrhage. Myles-white matter interface is normal. Age-related volume loss and mild small vessel ischemic change. Tiny bilateral old lacunar infarcts. Skull and face: Calvarium and visualized facial bones are intact, without suspicious lesions. Sinuses: Visualized sinuses and mastoids are clear. IMPRESSION: 1. Age-related volume loss, mild small vessel ischemic change, tiny old lacunar infarcts. 2. No evidence acute stroke, hemorrhage, or mass. Dictated by: Castillo Lew M.D. on 05/18/2019 at 13:01 Approved by: Castillo Lew M.D. on 05/18/2019 at 13:03
[2019-05-18] MEDS: SODIUM CHLORIDE 0.9% 1,000 ML 125 ML IV (13:38)
[2019-05-18 14:14] LABS: Add Manual Diff / Slide Review NO; Basophils Absolute Auto 100 /uL (0-100); Basophils Percent Auto 1.4 % (0-2); Eosinophils Absolute Auto 0 /uL (0-450); Eosinophils Percent Auto 0.6 % (2-4); Hematocrit 31.1 % (36-46); Hemoglobin 10.8 g/dL (12.0-16.0); Lymphocytes Absolute Auto 1100 /uL (1100-4500); Lymphocytes Percent Auto 24.9 % (25-40); Mean Corpuscular HGB Conc 34.8 % (30-36); Mean Corpuscular Volume 97.6 fL (80-100); Monocytes Absolute Auto 400 /uL (0-900); Neutrophils Absolute Auto 2800 /uL (1500-7000); Neutrophils Percent Auto 63.1 % (50-75); Platelet Count 154 X10^3/uL (150-400); Red Blood Cell Count 3.19 X10^6/uL (4.0-5.2); Red Cell Distribution Width 14.7 % (11.6-14.8); White Blood Cell Count 4.4 X10^3/uL (4.5-11.0)
[2019-05-18 14:19] LABS: INR 1.1 (0.9-1.3); Prothrombin Time 13.2 SECONDS (10.1-12.7)
[2019-05-18 14:22] LABS: Ammonia (NH3) < 9.0 umol/L (9-30); PTT Partial Thromboplastin Tim 27 SECONDS (26.4-36.2)
[2019-05-18 14:23] LABS: Alanine Aminotransferase 27 IU/L (9-52); Albumin 2.5 g/dL (3.5-5.0); Albumin Globulin Ratio 0.8 (1.0-2.8); Alkaline Phosphatase 120 U/L (38-126); Aspartate Aminotransferase 61 IU/L (14-36); Bilirubin Total 4.7 mg/dL (0.2-1.3); Bilirubin Unconjugated 3.9 mg/dL (0.0-1.1); Globulin 3.1 g/dL (1.7-4.1); HEMOLYSIS 15 (0-50); Lipase 18 U/L (23-300); Total Protein 5.6 g/dL (6.3-8.2)
[2019-05-18 14:24] LABS: Lactate (Lactic Acid) 1.2 mmol/L (0.7-2.1)
[2019-05-18 14:39] LABS: B Type Natriuretic Peptide < 100 (<100)
[2019-05-18 14:40] LABS: Acetaminophen < 10 ug/mL (10-30)
[2019-05-18 15:11] LABS: BUN Creatinine Ratio 21.7 (6-22); Blood Urea Nitrogen 13 mg/dL (7-17); Carbon Dioxide 37 mmol/L (22-32); Chloride 79 mmol/L (98-107); Estimated Glomerular Filt Rate > 60.0 mL/min (>60); Glucose 116 mg/dL (80-110); HEMOLYSIS 18 (0-50); Sodium 124 mmol/L (137-145)
[2019-05-18 15:27] LABS: Potassium 2.6 mmol/L (3.4-5.1)
[2019-05-18] MEDS: POTASSIUM CHLORIDE 20 MEQ/15 ML UDC 40 MEQ PO (15:47)
[2019-05-18] MEDS: POTASSIUM CHLORIDE 20 MEQ in SODIUM CHLORIDE 0.9% 250 ML 130 ML IV (15:57)
--- NOTE | 2019-05-18 17:36 | PC.NURSE ---
kcl inf continues at time of transfer to ICU [id number]
[2019-05-18 18:07] LABS: Appearance Urine UA SL CLOUDY; Bilirubin Urine UA NEGATIVE (NEGATIVE); Color Urine UA ORANGE; Glucose Urine UA NEGATIVE (Negative); Ketones Urine UA NEGATIVE (NEGATIVE); Leukocyte Esterase Urine UA 3+ (NEGATIVE); Nitrite Urine UA NEGATIVE (Negative); Occult Blood Urine UA TRACE-INTACT (Negative); Protein Urine UA NEGATIVE (Negative); Urobilinogen Urine UA >=8.0 E.U./dL (0.2)
[2019-05-18 18:19] LABS: Bacteria Urine Many (>30); Culture Indicated Urine Specimen Cultured; RBC Urine 5-10/HPF (0-5/HPF); Squamous Epithelial Cell Urine 1-5 /HPF (0-5/HPF); WBC Urine 30-100/HPF (0-5/HPF)
--- NOTE | 2019-05-18 20:58 | PM.HP.1 ---
History of Present Illness Date Patient Seen: 05/18/19 Time Patient Seen: 20:18 Chief complaint: weakness / falls/ on Eliquis Narrative: The patient is a 4-year-old female with PMH of PAF, chronic AC w/Eliquis, history of obesity (s/p gastric bypass 30 yrs ago) and associated malabsorption, hypothyroidism, DDD of thoracic spine, coronary atherosclerosis, cholelithiasis, and cirrhosis. Denies prior history of hypertension, diabetes, TIA/CVA, thrombosis, and GI bleed. Patient presented to the ED on 05/18/2019 out of concern for generalized weakness. Reports sustaining a ground level fall 2-3 days prior to presentation. Reports fear that she may be having a cerebral bleed as she felt disoriented. She is on Eliquis for underlying atrial fibrillation. Patient reports some degree of weakness for at least 1 month, progressively worsening. Known to have frequent recurrent falls. Most recent fall has taken place 2-3 days ago. The fall is described as ground level and occurs due to lower extremity weakness, patient states ... feel like my muscles crumble. Patient unable to recall specifics of the fall. Presumes she has fallen backwards. Reports injury to the posterior aspect of the head, with the most recent fall; but denies loss of consciousness. Known to be on chronic anticoagulation with Eliquis. Patient was unable to get up on her own. Reports being down on the ground for at least 5 hours until she was found by a friend who lives in close proximity to the patient. Patient reports progressive generalized weakness, comments that she has recently gotten a toilet seat with bars help her stand and a walker to help with ambulation. Since the most recent fall event patient notes presence of pain in multiple areas of her body, which she describes as new. Pain is noted in posterior aspect of the head, neck, bilateral shoulders, right upper quadrant of the abdomen, and bilateral hips. Patient denies prior history of headaches. She does note experiencing degree of disorientation, however notes that this has improved since hospital admission. Describes discomfort in the neck, bilateral shoulder and bilateral hip pain as muscular pain, also constant. Describes pain in the right upper quadrant of the abdomen as sharp. Denies radiation to posterior torso or extremities. Patient has not experienced nausea, vomiting, or diarrhea. Reports weight loss of 25 lb over the past 3 months and overall weight loss of 150 lb over the past 2 years. Reports diminished appetite and decreased tolerance to foods with certain texture. Denies difficulty swallowing. Known history of gastric bypass with sequela of malabsorption. She is not on any specific supplements at this time, although notes being previously told that she needs to take B vitamins and folate. Denies having any form of diarrhea or loose stools, as well as melena and hematochezia. Patient reports being told that she has cirrhosis approximately 6 months ago during an acute ED visit. At that time she was in [place] (name of hospital is [facility]). At present time reports right upper quadrant abdominal pain. Reports increased abdominal girth over the past 6 months, but no distension or firmness to the abdomen. She is on spironolactone 100 mg daily, and admits missing doses. Reports worsening lower extremity edema. Denies exertional dyspnea, chest pain, and palpitations. Although does note periodic episodes of heart flutter and shortness of breath, which she attributes to atrial fibrillation. Denies fever. Notes chills. Also reports, dizziness/lightheadedness with position change. Denies syncopal events. Patient admits to missing doses of her medications. Patient is known to have prior history of what patient and directly communicates as potential heavy indirect EtOH use. 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 She denies current EtOH use. She does comment on her last drink being two weeks ago, specifically notes drinking 2 glasses of wine, on 2 consecutive days. ED presentation and workup Labs 05/18/2019 @ 1400 WBC 4.4 Lactate 1.2 RBC 3.19 Hgb 10.8 Hct 31.1 MCV 97.6 MCH 34 MCHC 34.8 RDW 14.7 Plt 154 PT 13.2 INR 1.1 aPTT 1.1 Na 124 K 2.6 Cl 79 Ca 8.0 Alb 2.5 Glu 116 CO2 37 BUN 13 Cr 0.6 GFR > 60 BUN/Cr 21.7 AST 61 ALT 27 Alk Phos 120 Unconjugated Bilirubin 3.9 Ammonia < 9.0 Lipase 18 Acetaminophen level < 10 BNP < 100 UA leukocyte esterase 3+, nitrite negative, WBC 30-100 HPF, bacteria > 30, RBC 5-10 HPF EKG, 05/18/2019 @ 1222, SR (v-rate 68) w/ occasional supraventricular premature complexes, non-specific T wave abnormality Head CT, 05/18/2019 No evidence of acute stroke, hemorrhage, or mass. Age-related volume loss, mild small vessel ischemic change, tiny old lacunar infarcts. U/S Abdomen (complete), 05/18/2019 - Hepatomegaly, liver dimensions 20.5 cm. Heterogeneity and increased echogenicity of the liver is identified. No definitive liver lesions are evident. Subtle liver lesions may be obscured. - Probable cholelithiasis, sludge may be present, no evidence of acute cholecystitis. - Pancreas, aorta, iliac arteries, and IVC obscured by bowel gas - Moderate amount of abdominal ascites present - No biliary dilatation - Kidneys noted to be normal in size and echotexture (right 9.6 cm and left 9.7 cm). no hydronephrosis or nephrolithiasis. No solid masses. Patient History Medical History Cirrhosis of liver (Acute) Abdominal hernia (Chronic) Atrial fibrillation (Chronic) Chronic anticoagulation (Chronic) History of cardioversion (Chronic) Hypothyroid (Chronic) Rosacea (Chronic) Surgical History Hx of gastric bypass (Chronic) Family History Mother No known health problems Father No known health problems Social History household members: children, friend(s) and none other: Lives on [address], has adopted 3 year old son. Smoking Status: Never smoker alcohol intake: former substance use type: does not use Family & Social History Social History: household members Patient lives by herself on [address]. Prior Living Arrangements House other Has adopted 3 year old son, who is currently in Child protective Services. Patient reports stressors associated with custody of the child. Safety & Behavioral: Feels Safe in Current Yes Environment Been Physically Hurt or No Threatened By a Person Suicidal Ideation Description None Suicide Plan Description No Plan Tobacco & Substance use: Smoking Status Never smoker alcohol intake Former. Admits to heavy alcohol use. Notes drinking 1 bottle of hard liquor daily for at least 2-3 years. alcohol intake frequency denies current use. Notes drinking 2 glasses of wine on 2 consecutive days to weeks ago. Substance Use Type denies current use Meds Home Medications Medication Instructions Recorded Confirmed Type apixaban 5 mg PO BID 01/12/19 05/18/19 History lisinopril 2.5 mg PO DAILY 01/12/19 05/18/19 History albuterol sulfate [ProAir HFA] 2 puff INHALATION Q4H PRN 03/27/19 05/18/19 History levothyroxine 300 mcg PO DAILY 03/27/19 05/18/19 History metoprolol succinate 50 mg PO BID 03/27/19 05/18/19 History pantoprazole 40 mg PO DAILY PRN 03/27/19 05/18/19 History furosemide [Lasix] 40 mg PO DAILY #90 tab 04/03/19 05/18/19 Rx spironolactone 100 mg PO DAILY 04/03/19 05/18/19 History Allergies Allergy/AdvReac Type Severity Reaction Status Date / Time No Known Drug Allergies Allergy Verified 05/18/19 12:42 Review of Systems Review of Systems All systems reviewed & are unremarkable except as noted in HPI and below Exam Vital Signs (past 8 hours): - 05/18/19 13:00 05/18/19 14:06 05/18/19 14:30 Temperature Pulse Rate 70 66 68 Respiratory Rate 14 18 17 Blood Pressure Blood Pressure [Left Arm] 123/77 110/72 122/69 Pulse Oximetry 99 97 99 05/18/19 15:38 05/18/19 16:30 05/18/19 17:30 Temperature Pulse Rate 71 68 61 Respiratory Rate 16 17 20 Blood Pressure Blood Pressure [Left Arm] 109/67 103/66 98/54 L Pulse Oximetry 100 99 97 05/18/19 17:55 05/18/19 19:05 Temperature 97.8 F 98.6 F Pulse Rate 71 67 Respiratory Rate 22 18 Blood Pressure 103/65 98/69 Blood Pressure [Left Arm] Pulse Oximetry 100 100 Oxygen Delivery Method Room Air Narrative Exam Narrative: Constitutional: NAD Neurologic: AOx3, no focal neurological deficits Head: NC, AT Eyes: PERRL, EOMI, mild scleral icterus present Ears: external ears normal, no otorrhea, no periorbital bruising, no retroauricular bruising or bruising over the mastoid process Nose: external nose normal, no rhinorrhea or epistaxis Throat: MMM, oropharynx w/o exudate Neck: no masses, lymphadenopathy, or JVD Chest / Respiratory: equal chest rise, unlabored respiratory effort, no tachypnea, breath sounds diminished bilaterally Heart / CV: S1S2, regular, no murmur Abdomen / GI: Marked ascites and abdominal distention, abdomen is soft, RUQ tenderness with palpation, bowel sounds present, hepatomegaly left upper quadrant / left lateral torso with palpable focal edema/contusion and resulting brusing - this area is also tender to palpation : no suprapubic tenderness Peripheral / Vascular: warm to touch, DP and PT pulses palpable, BLE edema 1-2+ pitting, diminished sensation bilateral Musc: full ROM of upper and lower extremities, muscle wasting is noted. Skin: no ecchymosis or suspicious lesions / ulcers. Mild jaundice. No petechia or ecchymosis. Objective Labs Result Diagrams: 05/18/19 14:00 05/18/19 14:00 Labs: Laboratory Results - last 24 hr 05/18/19 05/18/19 05/18/19 13:55 14:00 14:00 WBC 4.4 L RBC 3.19 L Hgb 10.8 L Hct 31.1 L MCV 97.6 MCH 34.0 MCHC 34.8 RDW 14.7 Plt Count 154 Neut % (Auto) 63.1 Lymph % (Auto) 24.9 L [place] % (Auto) 10.0 Eos % (Auto) 0.6 L Baso % (Auto) 1.4 Neut # (Auto) 2800 Lymph # (Auto) 1100 [place] # (Auto) 400 Eos # (Auto) 0 Baso # (Auto) 100 PT INR APTT Sodium Potassium Chloride Carbon Dioxide BUN Creatinine Estimated GFR BUN/Creatinine Ratio Glucose Lactate 1.2 Calcium Total Bilirubin Conjugated Bilirubin Unconjugated Bilirubin AST ALT Alkaline Phosphatase Ammonia B-Natriuretic Peptide < 100 Total Protein Albumin Globulin Albumin/Globulin Ratio Lipase Urine Color [place] Urine Appearance Sl cloudy Urine pH 8.0 Ur Specific [place] 1.010 Urine Protein Negative Urine Glucose (UA) Negative Urine Ketones Negative Urine Occult Blood Trace-intact Urine Nitrate Negative Urine Bilirubin Negative Urine Urobilinogen >=8.0 Ur Leukocyte Esterase 3+ H Urine RBC 5-10/hpf H Urine WBC 30-100/hpf H Ur Squamous Epith Cells 1-5 /hpf D Urine Bacteria Many (>30) H Ur Culture Indicated? Specimen cultured Acetaminophen 05/18/19 05/18/19 05/18/19 14:00 14:00 14:00 WBC RBC Hgb Hct MCV MCH MCHC RDW Plt Count Neut % (Auto) Lymph % (Auto) [place] % (Auto) Eos % (Auto) Baso % (Auto) Neut # (Auto) Lymph # (Auto) [place] # (Auto) Eos # (Auto) Baso # (Auto) PT 13.2 H INR 1.1 APTT 27 D Sodium Potassium Chloride Carbon Dioxide BUN Creatinine Estimated GFR BUN/Creatinine Ratio Glucose Lactate Calcium Total Bilirubin Conjugated Bilirubin Unconjugated Bilirubin AST ALT Alkaline Phosphatase Ammonia < 9.0 L B-Natriuretic Peptide Total Protein Albumin Globulin Albumin/Globulin Ratio Lipase Urine Color Urine Appearance Urine pH Ur Specific [place] Urine Protein Urine Glucose (UA) Urine Ketones Urine Occult Blood Urine Nitrate Urine Bilirubin Urine Urobilinogen Ur Leukocyte Esterase Urine RBC Urine WBC Ur Squamous Epith Cells Urine Bacteria Ur Culture Indicated? Acetaminophen < 10 L 05/18/19 05/18/19 14:00 14:00 WBC RBC Hgb Hct MCV MCH MCHC RDW Plt Count Neut % (Auto) Lymph % (Auto) [place] % (Auto) Eos % (Auto) Baso % (Auto) Neut # (Auto) Lymph # (Auto) [place] # (Auto) Eos # (Auto) Baso # (Auto) PT INR APTT Sodium 124 L Potassium 2.6 L* Chloride 79 L Carbon Dioxide 37 H BUN 13 Creatinine 0.60 Estimated GFR > 60.0 BUN/Creatinine Ratio 21.7 Glucose 116 H Lactate Calcium 8.0 L Total Bilirubin 4.7 H Cancelled Conjugated Bilirubin 0.0 Unconjugated Bilirubin 3.9 H AST 61 H Cancelled ALT 27 Cancelled Alkaline Phosphatase 120 Cancelled Ammonia B-Natriuretic Peptide Total Protein 5.6 L Cancelled Albumin 2.5 L Cancelled Globulin 3.1 Cancelled Albumin/Globulin Ratio 0.8 L Cancelled Lipase 18 L Urine Color Urine Appearance Urine pH Ur Specific [place] Urine Protein Urine Glucose (UA) Urine Ketones Urine Occult Blood Urine Nitrate Urine Bilirubin Urine Urobilinogen Ur Leukocyte Esterase Urine RBC Urine WBC Ur Squamous Epith Cells Urine Bacteria Ur Culture Indicated? Acetaminophen Assessment & Plan Assessment & Plan narrative: Patient is being admitted for generalized weakness. Generalized weakness, acute, present on admission, active - Suspected to be in the setting acute UTI and decompensated cirrhosis, treat underlying pathology - History of recurrent falls, there is concern with debility and deconditioning, consult PT/OT eval and treat - Severe electrolyte derangement, correct underlying abnormalities - Anemia, chronic, no active s/s of bleeding, monitor closely - S/P fall w/reported muscle ache in neck bilateral shoulders and bilateral hips, down for at least 5 hours, check CK level Liver cirrhosis with ascites (presumed alcoholic), acute vs. [id number] condition, present on admission, active Decreased albumin, INR WNL, AST 61 and ALT 27, unconjugated bilirubin 3.9, and Plt 154 U/S w/ increasing hepatomegally and ascites from previous (see HPI section for details) No acute organ failure. No signs of metabolic encephalopathy. Ammonia level WNL. No h/o liver biopsy. Previously, GI follow-up was recommended, patient has not pursued. - Hepatitis panel, LDH - Concern for spontaneous bacterial peritonitis in the setting of abdominal pain and worsening ascites. Consider diagnostic paracentesis. Keep NPO overnight. - She does meet criteria for empiric therapy for SBP, will start on ceftriazone 2 gm Q24H. Blood culture prior to administration of antibiotics. - Consult General surgery in a.m. for paracentesis - Patient will need to establish herself with GI/hepatology and follow up closely on outpatient basis, discussed with patient in detail. This recommendation was made to the patient in the past, however she has failed to follow up. Cystits w/o hematuria, acute, present on admission, active - UA leukocyte esterase 3+, nitrite negative, WBC 30-100 HPF, bacteria > 30, RBC 5-10 HPF, urine culture pending (to be followed) - Started on ceftriaxone for SBP, adequate to cover acute cystitis - Supportive care Hyponatremia - Potentially multifactorial, in the setting of liver cirrhosis and anorexia. Likely contributing to underlying fatigue. - Hyponatremia as well as other severe lateral eye derangements. BMP and Mg in am, monitor electrolytes, correct metabolic abnormalities /replete electrolytes accordingly. - Na restriction 2000 mg /day, when diet resumed, currently NPO - Resume [employer] dose of lasix 40 mg PO QD and Spironolactone 100 mg PO QD - Stric I/O monitoring and daily weight Hypokalemia (K 2.6), acute, present on admission, active - Received 40 mEq KCL orally in ED AND currently is being repleted with additional 20 mEq MARIANNA IV - Check magnesium results reviewed, Mg 1.2, will replete w/ 2 gm MgSO4, repeat Mg in am - BMP in am, monitor electrolytes closely and replete accordingly Right upper quadrant abdominal pain, acute, present on admission, active - Suspect underlying liver pathology see plan of care for cirrhosis - If gallbladder pathology is suspected, then consider MRCP - Lidocaine patch Left hip pain, acute, present on admission, active - Left hip pain with recent reported fall. Palpable deformity at left hip. Able to perform flexion and extension at the hip, but w/ pain and difficulty. XR Hip (left). Paroxysmal AFIB, chronic condition, present on admission, active/stable - [employer] on metoprolol succinate 50 mg BID for rate control and Eliquis 5 mg BID for anticoagulation - Hold Eliquis for potential paracentesis on 05/19/2019 Hypothyroidism, chronic condition, present on admission, stable - [employer] on levothyroxine 300 mcg daily. Check TSH level. TSH result reviewed, 2.61 WNL Normocytic anemia, chronic condition, present on admission, active / stable - Hgb 10.8 MCV 97.6 MCH 34 MCHC 34.8 RDW 14.7. No active s/s of bleeding. History of alcoholism and prior GI bleed. Denies history of esophageal varices. - On Eliquis for underlying AFib, which will hold for potential paracentesis on 05/19/2019. - Monitor Hgb level closely. S/P Fall, frequent recurrence, present on admission, active - Head CT, 05/18/2019. No evidence of acute stroke, hemorrhage, or mass. Age-related volume loss, mild small vessel ischemic change, tiny old lacunar infarcts. - Known to be on chronic anticoagulation with Eliquis History of alcohol dependence, acute on chronic condition, present on admission, active - Denies current use, however does admit to use of alcohol 2 weeks ago. Check EtOH level, will add to labs done in the ED. - Monitor for s/s of EtOH withdrawal. Will hold off CIWA protocol at this time. Full code. Designated surrogate decision maker is sister, Bouchra Coleman. Home medications reviewed and reconciled accordingly. VTE prophylaxis: SCDs
[2019-05-18 22:45] LABS: Ethanol (ETOH) < 10 mg/dL
--- NOTE | 2019-05-18 23:04 | PC.NURSE ---
1755 - Patient admitted to room 104. Brought from ED on stretcher by nursing staff. ED nurse, Burak, stated that patient just voided a large amount in ED before coming to room. Alert and oriented. Oriented to room and call light, call light within reach. Bed alarm on.
[2019-05-18 23:41] LABS: Creatine Kinase 25 U/L (30-135)
[2019-05-18 23:51] LABS: Thyroid Stimulating Hormone 2.61 uIU/mL (0.47-4.68)
[2019-05-19] VITALS (12 sets, daily range): BP systolic 118–154; BP diastolic 59–84; PULSE 74–102; RESP 13–19; TEMP 36.1–37.4; O2SAT 92–100
--- NOTE | 2019-05-19 00:21 | DI.RAD.S_ITS ---
PROCEDURE: XR HIP LT 1V INDICATIONS: left hip pain after fall TECHNIQUE: 1 views of the hip were acquired. COMPARISON: None. FINDINGS: Bones: No fractures or dislocations. No suspicious bony lesions. The visualized pelvic ring appears intact. Soft tissues: No suspicious soft tissue calcifications or masses. IMPRESSION: No definitive fractures. If clinical symptoms persist or clinical suspicion for pathology is high, a standard 2 view examination or advanced imaging such as CT or MRI is suggested for further evaluation. Dictated by: Yong Villegas M.D. on 05/19/2019 at 9:15 Approved by: Yong Villegas M.D. on 05/19/2019 at 9:16
[2019-05-19 00:30] LABS: Lactate Dehydrogenase 450 U/L (313-618)
[2019-05-19 00:45] LABS: Magnesium 1.2 mg/dL (1.6-2.3)
[2019-05-19] MEDS: CEFTRIAXONE 2 GM/50 ML FROZ.PIGGY IV (00:48)
[2019-05-19] MEDS: MAGNESIUM SULFATE 2 GM/50 ML PIGGYBACK IV ×2 (01:16→11:11)
[2019-05-19 05:20] LABS: Add Manual Diff / Slide Review NO; Basophils Absolute Auto 0 /uL (0-100); Basophils Percent Auto 0.5 % (0-2); Eosinophils Absolute Auto 0 /uL (0-450); Eosinophils Percent Auto 1.1 % (2-4); Hemoglobin 9.7 g/dL (12.0-16.0); Lymphocytes Absolute Auto 1100 /uL (1100-4500); Lymphocytes Percent Auto 28.9 % (25-40); Mean Corpuscular HGB Conc 34.6 % (30-36); Mean Corpuscular Hemoglobin 34.1 PG (26-34); Mean Corpuscular Volume 98.4 fL (80-100); Monocytes Absolute Auto 300 /uL (0-900); Neutrophils Absolute Auto 2200 /uL (1500-7000); Neutrophils Percent Auto 61.5 % (50-75); Platelet Count 148 X10^3/uL (150-400); Red Blood Cell Count 2.84 X10^6/uL (4.0-5.2); White Blood Cell Count 3.6 X10^3/uL (4.5-11.0)
[2019-05-19 05:26] LABS: Blood Urea Nitrogen 11 mg/dL (7-17); Calcium 7.6 mg/dL (8.4-10.2); Carbon Dioxide 34 mmol/L (22-32); Chloride 87 mmol/L (98-107); Estimated Glomerular Filt Rate > 60.0 mL/min (>60); Glucose 97 mg/dL (80-110); HEMOLYSIS < 15 (0-50); Sodium 127 mmol/L (137-145)
[2019-05-19 05:27] LABS: Magnesium 1.8 mg/dL (1.6-2.3)
[2019-05-19] MEDS: LEVOTHYROXINE 100 MCG TABLET 300 MCG PO (09:11)
[2019-05-19] MEDS: SPIRONOLACTONE 50 MG TABLET 100 MG PO (09:11)
[2019-05-19] MEDS: FUROSEMIDE 20 MG TABLET 40 MG PO (09:11)
[2019-05-19] MEDS: SODIUM CHLORIDE 0.9% 1,000 ML 125 ML IV (09:15)
--- NOTE | 2019-05-19 09:35 | DIET.PN ---
Dietary Progress Note Assessment: 59 yof assessed at high risk for malnutrition. Pt admitted for weakness w/ recent fall. She currently take Eliquis and is concerned with possible cerebral bleed. She has a hx of obesity and malabsorption r/t gastric bypass x 30 yrs ago. Pt reports 150# weight loss over the last 2 yrs w/ 25# loss in the last 3 mo. She has had a reduced appetite w/ reduced intake over the last few months as well. Reports difficulty tolerating certain textures. She also has a Hx of heavy EtOH use but reports her last drink was 2 weeks ago. Pt currently NPO with concern for spontaneous bacterial peritonitis w/ abdominal pain and worsening ascites. Diet: NPO (waiting surgical consult) HT: 172.72cm WT: 72.5kg BMI: 24.3 MNA: 7 (malnourished) Rudy: 16 Labs: Na: 127 K: 3.0 Cr: 0.50 NFPE: Severe tricep/bicep and thoracic subcutaneous fat loss w/ severe clavicle and deltoid muscle loss. Dietary Likes: fruit, yogurt, soup Dietary Dislikes: beef Nutrition Diagnosis: Severe chronic illness PCM related to alteration in GI tract structure as evidence by energy intake <75% EER > 1mo, weight loss > 7.5% in 3 mo, NFPE severe tricep/bicep and thoracic subcutaneous fat loss w/ severe clavicle and deltoid muscle loss. Interventions: Discussed importance of adequate protein intake especially post bariatric patients. Recommended nutrition supplement to increase vitamin/mineral intake. Recommend easy chew foods as patient indicates difficulty with certain textures. Provide ONS Ensure BID was diet progresses. Monitoring/Evaluations: Diet Progression/tolerance, PO intake, weight. Provide more extensive MNT education on post bariatric protein/nutrient needs.
--- NOTE | 2019-05-19 10:09 | PC.NURSE ---
Addendum entered by Leena Webster R.N. 05/19/19 14:38: k-rider bothering patient's right forearm iv. slightly swollen and tender to touch but area is soft and not erythemic. k-rider paused and albumin infusion started to left ac iv site. will allow right forearm site to rest, and re-assess. k-rider to finish after albumin infused. consent has already been signed and on chart. blood tubing used for infusion. bp at 15 min post start of infusion. 154/79. sat 99%. hr 91. temp 98.6. no adverse s/sx's. Addendum entered by eLena Webster R.N. 05/19/19 11:23: RETURN OF APPROX 500CC'S STRAW COLORED, SLIGHTLY CLOUDY URINE. Addendum entered by Leena Webster R.N. 05/19/19 11:19: DA SILVA PLACED PER ORDER, DUE TO ANATOMY, URETHRA NOT VISIBLE. AFTER SEVERAL ATTEMPTS W/ 2 RN'S AND SEPARATE CATH'S, USE OF 14F COUDE SUCCESSFUL. PROCEDURE UNCOMFORTABLE PER PATIENT REPORT. Original Note: PATIENT ALERT AND ORIENTED. PLEASANT AND COOPERATIVE WITH A SENSE OF HUMOR. STATES OVERALL SHE IS FEELING MUCH BETTER. STATES THAT YESTERDAY SHE FELT THAT SHE WAS GOING TO , AND I'M NOT A DRAMATIC PERSON. I CALLED MY [employer] TO GET MY AFFAIRS IN ORDER. THIS MORNING SHE WAS SURPRISED AT HOW MUCH EASIER IT WAS TO STAND AND TRANSF TO [facility]. SHE ALSO JUST AMBULATED IN HALLS WITH PHYSICAL THERAPY. SHE STATES HER HIP PAIN IS MUCH IMPROVED. DECLINES LIDO PATCH. ATTEMPTED TO VOID, VOIDED 5CC'S. BLADDER SCANNED WITH >673 ML NOTED.
--- NOTE | 2019-05-19 10:31 | PT.IPTN ---
Physical Therapy Treatment Note M2 PT-IP Current Condition Start: 05/19/19 10:19 Freq: NEEDED Status: Active Protocol: Document 05/19/19 09:50 DCW (Rec: 05/19/19 10:31 [facility] [id number]) Physical Therapy Current Condition Current Condition Evaluation Date 05/19/19 Treatment Diagnosis Weakness, fatigue Onset Date 1 month Weight Bearing Status Weight Bearing Status Full Weight Bearing M3 PT-IP Subjective Start: 05/19/19 10:19 Freq: NEEDED Status: Active Protocol: Document 05/19/19 09:50 DCW (Rec: 05/19/19 10:31 [facility] [id number]) Subjective Physical Therapy Visit Type Type Initial Evaluation Visit Start Time 09:50 Visit Stop Time 10:15 Total Visit Minutes 25 Notes Pt arrived to the [facility] ED on 05/18/19 due to progressing weakness. Pt has a very complicated medical history, and has recently begun to fall frequently, enough that she purchased herself a 4WW for stability. Pt notes that for the past month, she has gone from independent ambulation to home -based 4WW ambulation. Does report that today she is feeling much better than she had been. Physical Therapy Visit Comments Patient Comments I'm doing much better now than I have been for a month! Patient Goals Improve enough to return home. Therapy Pain Assessment Pain When Pain Assessed During Mobility Pain Present Pain Present Denied Pain M4 PT-IP Mobility and Gait Start: 05/19/19 10:19 Freq: NEEDED Status: Active Protocol: Document 05/19/19 09:50 DCW (Rec: 05/19/19 10:31 DC [id number]) PT-Bed Mobility Assessment Rolling Type of Rolling Roll to Left Level of Assist Independent Supine to Sit Supine to Sit Independent Sit to Supine Sit to Supine Independent Scooting Scooting to Edge of Bed Independent PT-Transfer Assessment Sit to and From Stand Sit to and from Stand Standby Assistance Equipment Transfer Assistive Device Bed Rail Gait Belt Front Wheeled Walker Transfer Ability Level of Assist Independent Comments Mobility Comments Pt becomes light-headed upon standing Gait Assessment Gait Gait Assistance Required: Standby Assistance Distance (Feet) 35 Assistive Devices Assistive Device Gait Belt Front Wheeled Walker Gait Deviations General Gait Pattern Decreased Stride Length Factors Limiting Gait Function Factors Limiting Gait Function Decreased Activity Tolerance Decreased Strength Poor Balance M5 PT-IP Objective Assessments Start: 05/19/19 10:19 Freq: NEEDED Status: Active Protocol: Document 05/19/19 09:50 DCW (Rec: 05/19/19 10:31 DCW [id number]) Orientation Orientation/Cognition Level of Alertness Alert Orientation Name Birthday Date Place Situation Safety Awareness Understands Safety Issues Memory Description No Deficits Noted Gross Range of Motion Upper Extremity ROM Assessment Within Functional Limits Lower Extremity ROM Assessment Within Functional Limits Strength Lower Extremity Strength Hip 4- Knee 4- Ankle 4 M7 PT-IP Assessment and Plan Start: 05/19/19 10:19 Freq: NEEDED Status: Active Protocol: Document 05/19/19 09:50 DCW (Rec: 05/19/19 10:31 DC [id number]) PT Summary Assessment and Plan Potential Rehabilitation Potential Good Status of Condition at Evaluation Stable Summary Impairments Strength Balance Activity Tolerance Assessment Summary Pt presents with improving function compared to admittance yesterday. Pt has been declining in function over the past month, but feels better today than she has at any point over that month. Pt does exhibit general weakness and decreased activity tolerance following her recent decline in function, and would likely benefit from continued skilled in-patient PT during hospital admission. Goals Gait Goal Independent Gait Distance 100 Other Goals Ascend/descend three steps with single rail independently Frequency of Treatment Frequency Of Treatment Once a Day Treatment Plan Physical Therapy Treatment Plan Gait Training Therapeutic Exercise Recommendations To Nursing Amount of Assist Needed Standby Assistance Discharge Recommendations PT Discharge Recommendations Home with Assistance
--- NOTE | 2019-05-19 10:38 | DI.US.S_ITS ---
PROCEDURE: US PARACENTESIS INDICATIONS: ASCITIES TECHNIQUE: The indications, alternatives, benefits, risks, and complications of the procedure were explained to the patient. Written informed consent was obtained and placed in the chart. The abdomen and pelvis were examined sonographically, and an appropriate site was chosen for paracentesis. The skin was prepared and draped in the usual sterile fashion, and 1% lidocaine was infiltrated from the skin down through the peritoneal surface. A 19-gauge catheter-covered needle was then introduced into the peritoneal space, the catheter was advanced and the needle was withdrawn, and thereafter peritoneal fluid was withdrawn. The catheter was then removed and a dressing was applied. The fluid was discarded if the clinician did not order diagnostic testing of the fluid. COMPARISON: None. FINDINGS: Access site: Right lower quadrant near midline Needle: One-Step centesis catheter with introducer needle. Fluid volume and description: 5 L of chylous fluid. Fluid sent for diagnostic testing: Yes Medications: 1% lidocaine for local anaesthesia. Complications: None. IMPRESSION: Successful ultrasound-guided paracentesis. Dictated by: Tariq Polo M.D. on 05/20/2019 at 14:42 Approved by: Tariq Polo M.D. on 05/20/2019 at 14:43
[2019-05-19 10:41] LABS: Alanine Aminotransferase 28 IU/L (9-52); Albumin Globulin Ratio 0.8 (1.0-2.8); Alkaline Phosphatase 95 U/L (38-126); Aspartate Aminotransferase 56 IU/L (14-36); Bilirubin Total 2.5 mg/dL (0.2-1.3); Bilirubin Unconjugated 1.7 mg/dL (0.0-1.1); Globulin 2.6 g/dL (1.7-4.1); HEMOLYSIS < 15 (0-50); Total Protein 4.6 g/dL (6.3-8.2)
--- NOTE | 2019-05-19 10:51 | PM.PN.1 ---
Subjective Date Patient Seen: 05/19/19 Interval history: Josy Rojas is a 59-year-old female with a past medical history significant for paroxysmal atrial fibrillation on chronic anticoagulation with Eliquis, morbid obesity status post gastric bypass 30 years ago with associated malabsorption, hypothyroidism, DDD of thoracic spine, coronary atherosclerosis, cholelithiasis, and recent diagnosis of alcoholic cirrhosis who presented after ground level fall for generalized weakness. She was found to have severe metabolic derangements specifically hyponatremia and hypokalemia likely related to alcoholic cirrhosis and 3rd spacing with need for paracentesis due to moderate ascites. She is admitted for further management. The patient is lying in bed comfortably. She reports she feels substantially better than yesterday. She reports she thought she was going to and started making arrangements with her build master. She denies dysuria but has a french catheter in due to acute urinary retention likely from UTI. She has moderately distended abdomen without tenderness and with characteristic findings of alcoholic cirrhosis with ascites and shifting fluid wave, tympany, and caput medusae. Eliquis has been held and plan for paracentesis tomorrow due radiology scheduling availability. She has specific complaints but does report confusion and headache which are now resolved. She has generalized weakness likely secondary to muscle wasting from a alcoholic cirrhosis. BMI 24 but overall muscle mass likely very low. She denies headache, chest pain, shortness of breath, abdominal pain, nausea, vomiting, fever, chills, dysuria, diarrhea or constipation. She is voiding via French catheter. She has not yet had a bowel movement since admission. She is up ambulating with assistance and PT/OT. Discussed alcoholic cirrhosis in detail and educated patient regarding the condition, related complications, and screening preventative management for esophageal varices and HCC. The patient was very open and honest about her alcohol use which has been heavy (5th of vodka or 1-2 bottles of wine a day) for a significant amount of time as she and her late drank heavy together and influenced each other. 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 She reports she hadnt drank for almost 1 month and then had a bad day due to legal issues with her son and had a bottle of wine a week or two ago. She was recently diagnosed with alcoholic liver cirrhosis but does not recall anyone informing her regarding her having the condition or what it means. She is very thankful and appreciative for the information and plans to follow-up with a non licensed operator in the very near future. Exam Vital Signs (past 8 hours): - 05/19/19 09:19 05/19/19 12:00 05/19/19 14:32 Temperature 99.3 F 98.6 F Pulse Rate 80 91 H Respiratory Rate 17 16 Blood Pressure 124/79 154/79 H Pulse Oximetry 95 99 99 05/19/19 14:33 05/19/19 16:48 Temperature 98.5 F Pulse Rate 97 H Respiratory Rate 16 Blood Pressure 128/73 Pulse Oximetry 99 94 Oxygen Delivery Method Room Air Oxygen Flow Rate 0 Narrative Exam Narrative: General: Middle-aged thin female lying in bed and in no acute distress, appears older than stated age, appropriately interactive. HEENT: Normocephalic, atraumatic. External ears without defect. Pupils equal, round, and reactive to light. Temporal wasting. Anicteric sclerae, moist conjunctivae, and no lid lag. Oropharynx free of erythema and cobble stoning with moist mucosa. Neck: Supple with full range of motion. No lymphadenopathy or thyromegaly. Cardiovascular: Regular rhythm and rate without murmurs, rubs, or gallops appreciated. Pulmonary: Clear to auscultation bilaterally without crackles, wheezes, or rhonchi. Normal respiratory effort with no use of accessory muscles. Abdomen: Soft, nontender, moderate distention, ascites present with tympany and fluid wave, caput medusae. Difficult to assess for hepatosplenomegaly or masses due to ascites. Extremities: No clubbing, cyanosis, or edema. Extensive muscle atrophy in upper and lower extremities. Skin: Normal temperature, turgor, and texture; no rash, ulcers, or subcutaneous nodules appreciated. Palmar erythema present. Neurological: Cranial nerves grossly intact. No asterixis. Psychiatric: Mildly anxious with normal affect. Alert and oriented to person, place, and time. Objective Labs Result Diagrams: 05/20/19 04:40 05/20/19 17:44 Labs: Laboratory Results - last 24 hr 05/18/19 05/18/19 05/18/19 13:55 14:00 14:00 WBC RBC Hgb Hct MCV MCH MCHC RDW Plt Count Neut % (Auto) Lymph % (Auto) [place] % (Auto) Eos % (Auto) Baso % (Auto) Neut # (Auto) Lymph # (Auto) [place] # (Auto) Eos # (Auto) Baso # (Auto) Sodium Potassium Chloride Carbon Dioxide BUN Creatinine Estimated GFR BUN/Creatinine Ratio Glucose Calcium Magnesium Total Bilirubin Conjugated Bilirubin Unconjugated Bilirubin AST ALT Alkaline Phosphatase Lactate Dehydrogenase Total Creatine Kinase Total Protein Albumin Globulin Albumin/Globulin Ratio Procalcitonin TSH 2.61 Urine Color [place] Urine Appearance Sl cloudy Urine pH 8.0 Ur Specific [place] 1.010 Urine Protein Negative Urine Glucose (UA) Negative Urine Ketones Negative Urine Occult Blood Trace-intact Urine Nitrate Negative Urine Bilirubin Negative Urine Urobilinogen >=8.0 Ur Leukocyte Esterase 3+ H Urine RBC 5-10/hpf H Urine WBC 30-100/hpf H Ur Squamous Epith Cells 1-5 /hpf D Urine Bacteria Many (>30) H Ur Culture Indicated? Specimen cultured Nasal Screen MRSA (PCR) Ethyl Alcohol < 10 05/18/19 05/18/19 05/18/19 14:00 14:00 14:00 WBC RBC Hgb Hct MCV MCH MCHC RDW Plt Count Neut % (Auto) Lymph % (Auto) [place] % (Auto) Eos % (Auto) Baso % (Auto) Neut # (Auto) Lymph # (Auto) [place] # (Auto) Eos # (Auto) Baso # (Auto) Sodium Potassium Chloride Carbon Dioxide BUN Creatinine Estimated GFR BUN/Creatinine Ratio Glucose Calcium Magnesium 1.2 L Total Bilirubin Conjugated Bilirubin Unconjugated Bilirubin AST ALT Alkaline Phosphatase Lactate Dehydrogenase 450 Total Creatine Kinase 25 L Total Protein Albumin Globulin Albumin/Globulin Ratio Procalcitonin TSH Urine Color Urine Appearance Urine pH Ur Specific [place] Urine Protein Urine Glucose (UA) Urine Ketones Urine Occult Blood Urine Nitrate Urine Bilirubin Urine Urobilinogen Ur Leukocyte Esterase Urine RBC Urine WBC Ur Squamous Epith Cells Urine Bacteria Ur Culture Indicated? Nasal Screen MRSA (PCR) Ethyl Alcohol 05/18/19 05/19/19 05/19/19 18:20 04:41 04:41 WBC RBC Hgb Hct MCV MCH MCHC RDW Plt Count Neut % (Auto) Lymph % (Auto) [place] % (Auto) Eos % (Auto) Baso % (Auto) Neut # (Auto) Lymph # (Auto) [place] # (Auto) Eos # (Auto) Baso # (Auto) Sodium 127 L Potassium 3.0 L Chloride 87 L Carbon Dioxide 34 H BUN 11 Creatinine 0.50 L Estimated GFR > 60.0 BUN/Creatinine Ratio 22.0 Glucose 97 Calcium 7.6 L Magnesium 1.8 Total Bilirubin Conjugated Bilirubin Unconjugated Bilirubin AST ALT Alkaline Phosphatase Lactate Dehydrogenase Total Creatine Kinase Total Protein Albumin Globulin Albumin/Globulin Ratio Procalcitonin TSH Urine Color Urine Appearance Urine pH Ur Specific [place] Urine Protein Urine Glucose (UA) Urine Ketones Urine Occult Blood Urine Nitrate Urine Bilirubin Urine Urobilinogen Ur Leukocyte Esterase Urine RBC Urine WBC Ur Squamous Epith Cells Urine Bacteria Ur Culture Indicated? Nasal Screen MRSA (PCR) Negative for mrsa Ethyl Alcohol 05/19/19 05/19/19 05/19/19 04:41 07:41 15:03 WBC 3.6 L RBC 2.84 L Hgb 9.7 L Hct 28.0 L MCV 98.4 MCH 34.1 H MCHC 34.6 RDW 15.0 H Plt Count 148 L Neut % (Auto) 61.5 Lymph % (Auto) 28.9 [place] % (Auto) 8.0 Eos % (Auto) 1.1 L Baso % (Auto) 0.5 Neut # (Auto) 2200 Lymph # (Auto) 1100 [place] # (Auto) 300 Eos # (Auto) 0 Baso # (Auto) 0 Sodium Potassium Chloride Carbon Dioxide BUN Creatinine Estimated GFR BUN/Creatinine Ratio Glucose Calcium Magnesium Total Bilirubin 2.5 H Conjugated Bilirubin 0.0 Unconjugated Bilirubin 1.7 H AST 56 H ALT 28 Alkaline Phosphatase 95 Lactate Dehydrogenase Total Creatine Kinase Total Protein 4.6 L Albumin 2.0 L Globulin 2.6 Albumin/Globulin Ratio 0.8 L Procalcitonin 0.08 TSH Urine Color Urine Appearance Urine pH Ur Specific [place] Urine Protein Urine Glucose (UA) Urine Ketones Urine Occult Blood Urine Nitrate Urine Bilirubin Urine Urobilinogen Ur Leukocyte Esterase Urine RBC Urine WBC Ur Squamous Epith Cells Urine Bacteria Ur Culture Indicated? Nasal Screen MRSA (PCR) Ethyl Alcohol Assessment & Plan Assessment & Plan narrative: Josy Rojas is a 59-year-old female with a past medical history significant for paroxysmal atrial fibrillation on chronic anticoagulation with Eliquis, morbid obesity status post gastric bypass 30 years ago with associated malabsorption, hypothyroidism, DDD of thoracic spine, coronary atherosclerosis, cholelithiasis, and recent diagnosis of alcoholic cirrhosis who presented after ground level fall for generalized weakness. She was found to have severe metabolic derangements specifically hyponatremia and hypokalemia likely related to alcoholic cirrhosis and 3rd spacing with need for paracentesis due to moderate ascites. She is admitted for further management. 1. Acute on chronic generalized weakness with recurrent GLF and severe protein calorie malnutrition, present on admission. Active. -Patient presented after GLF. Patient endorses headache and confusion likely due to significant hyponatremia from baseline. -Secondary to acute UTI and decompensated alcoholic cirrhosis. Treat underlying pathology. CT brain demonstrated no evidence of acute stroke, hemorrhage, or mass. Age-related volume loss, mild small vessel ischemic change, and tiny old lacunar infarcts. Known to be on chronic anticoagulation with Eliquis . -Patient with severe electrolyte derangement specifically sodium, potassium, and magnesium. Continue to monitor daily and replete as necessary. -Anemia is not major contributor as Hgb close to baseline. No overt signs of bleeding. Continue to monitor closely. -Patient is status post fall with reported muscle ache in neck bilateral shoulders and bilateral hips, down for at least 5 hours. Ordered CK which was below normal at 25 likely due muscle wasting from advancing cirrhosis. -Continue lidocaine patch applied to one affected area daily. Avoid narcotics, APAP and NSAIDs. -History of recurrent falls due to generalized weakness, muscle wasting from alcoholic cirrhosis with debility and deconditioning. Consulted PT and OT for evaluation and treatment. 2. Acute decompensation of alcoholic liver cirrhosis, present on admission. Improving. -Patient has several clinical features of alcoholic cirrhosis, pancytopenia, ascites, caput medusae, palmar erythema, vast muscle wasting with generalized weakness. No acute organ failure. No signs of metabolic encephalopathy. Ammonia level normal < 9.0. No history of liver biopsy. Requested records from where she was presumably diagnosed, pending. -Decreased albumin 2.5, INR normal at 1.1, AST 61 and ALT 27, unconjugated bilirubin 3.9, and Plt 154. -Ordered hepatitis panel, pending, -Initial MELD 23, now 11. -Abdominal ultrasound demonstrated increasing moderate ascites and hepatomegaly compared to previous. -Acute decompensation due to abdominal pain with worsening ascites and concern for SBP and severe electrolyte and metabolic derangement. -Ordered ultrasound guided diagnostic (although may be false negative due to Abx) and therapeutic paracentesis, pending and will not be done until tomorrow due to radiology scheduling. Held Eliquis. -Initially met criteria for empiric therapy for SBP and continue ceftriazone 2 g IV daily. -Ordered blood culture x 2 prior to administration of antibiotics, pending. -Continue spironolactone and furosemide 2:1. May need to add nadolol if SAAG score suggests portal hypertension. -Patient will need to establish herself with GI/hepatology and follow up closely on outpatient basis. This has been discussed in detail on multiple occasions in the past by several providers per records and she has failed to follow up. 3. Acute urinary tract infection, present on admission. Active. -Urinalysis appears grossly infected with urine culture preliminarily growing gram negative bacilli. -Continue ceftriaxone 2 g IV daily as above pending urine culture identification and sensitivities. 4. Acute on chronic hyponatremia, present on admission. Active. -Secondary to alcoholic liver cirrhosis decompensation with decreased osmotic gradient and third spacing/intravascular depletion. Likely contributing to underlying fatigue, headache, and reported confusion. -Continue spironolactone and furosemide 2:1. -Continue sodium restricted diet 2g daily. -Continue to monitor strict I&O and daily weight. 5. Acute hypokalemia, present on admission. Active. -Initial potassium was 2.6. and received 40 mEq KCL orally in ED. Received potassium chloride 60 mEq IV total thus far. -Continue to monitor potassium closely and replete as needed. 6. Acute hypomagnesmia, present on admission. Active. -Initial magnesium was 1.2. and received magnesium sulfate 2 g IV x 2 total. -Continue to monitor magnesium closely and replete as needed. 7. Acute left hip pain, present on admission. Resolved. -Left hip pain with recent reported fall. -Ordered hip x-ray which did not demonstrate any pathology. Consider CT or MRI if persitent. 8. Paroxysmal atrial fibrillation, chronic, present on admission. Stable. -Continue metoprolol succinate 50 mg twice daily for rate control. Held Eliquis for anticoagulation due to paracentesis tomorrow. May restart in 1-2 after paracentesis. 9. Hypothyroidism, chronic, present on admission. Stable. -TSH normal at 2.61. -Continue levothyroxine 300 mcg daily. 10. Normocytic anemia, chronic condition, present on admission, active / stable -Hgb 10.8 MCV 97.6 MCH 34 MCHC 34.8 RDW 14.7. No overt signs of bleeding. History of alcoholism and prior GI bleed. Denies history of esophageal varices. -Held Eliquis for paracentesis tomorrow. Patient high risk of bleeding due to liver disease and may want to risk stratify with [id number] and HASBLED before restarting. -Monitor CBC closely. 11. History of alcohol dependence, acute on chronic condition, present on admission. Presume stable. -Denies current use but does admit to recent use 1-2 weeks ago with bottle of wine. however does admit to use of alcohol 2 weeks ago. EtOH level negative. -Monitor for signs and symptoms of alcohol withdrawal but will not start CIWA protocol as patient is far outside withdraw window if patient she truly has abstained that period of time. Disposition: Likely to discharge home in several days after diagnostic and therapeutic paracentesis, urine culture identification and sensitivities and electrolyte derangement is corrected with close outpatient follow-up and referral.
[2019-05-19] MEDS: POTASSIUM CHLORIDE 60 MEQ in SODIUM CHLORIDE 0.9% 500 ML 88.333 ML IV (11:11)
[2019-05-19] MEDS: ALBUMIN HUMAN 25 GM/100 ML VIAL IV (14:06)
--- NOTE | 2019-05-19 15:04 | OT.IP.TRT ---
Occupational Therapy Treatment Note M3 OT- IP Subjective and Pain Start: 05/19/19 15:03 Freq: Status: Active Protocol: Document 05/19/19 15:03 [facility] (Rec: 05/19/19 15:04 [facility] [id number]) OT- Subjective Occupational Therapy Visit Type Type Patient Refusal Notes Pt getting blood drawn, therefore to check on pt later or tomorrow for OT eval.
[2019-05-19 15:46] LABS: Procalcitonin 0.08 ng/mL (<0.5)
--- NOTE | 2019-05-19 16:09 | OT.IP.TRT ---
Occupational Therapy Treatment Note M3 OT- IP Subjective and Pain Start: 05/19/19 15:03 Freq: Status: Active Protocol: Document 05/19/19 16:08 [facility] (Rec: 05/19/19 16:08 [facility] [id number]) OT- Subjective Occupational Therapy Visit Type Type Patient Refusal Notes Check on pt for OT eval, pt rather wait tomorrow to do shower for OT eval.
[2019-05-20] VITALS (23 sets, daily range): BP systolic 73–132; BP diastolic 37–78; PULSE 74–88; RESP 16–18; TEMP 36.2–36.9; O2SAT 93–100
[2019-05-20] MEDS: CEFTRIAXONE 2 GM/50 ML FROZ.PIGGY IV ×2 (01:29→23:45)
--- NOTE | 2019-05-20 01:56 | PC.NURSE ---
Quality Control Tech Note: 0030: Resting in bed, easily arousable. Respirations unlabored. Not disturbed at this time. 0115: Awake, vital signs stable. IVs in place in rt wrist and lt forearm. No complaint of pain at this time.
[2019-05-20 05:20] LABS: INR 1.1 (0.9-1.3); Prothrombin Time 12.3 SECONDS (10.1-12.7)
[2019-05-20 05:27] LABS: Add Manual Diff / Slide Review NO; Basophils Absolute Auto 0 /uL (0-100); Basophils Percent Auto 1.2 % (0-2); Eosinophils Absolute Auto 100 /uL (0-450); Eosinophils Percent Auto 1.9 % (2-4); Hematocrit 28.8 % (36-46); Hemoglobin 9.9 g/dL (12.0-16.0); Lymphocytes Absolute Auto 1300 /uL (1100-4500); Lymphocytes Percent Auto 35.7 % (25-40); Mean Corpuscular HGB Conc 34.6 % (30-36); Mean Corpuscular Hemoglobin 34.7 PG (26-34); Mean Corpuscular Volume 100.4 fL (80-100); Monocytes Absolute Auto 300 /uL (0-900); Monocytes Percent Auto 8.8 % (3-14); Neutrophils Absolute Auto 2000 /uL (1500-7000); Neutrophils Percent Auto 52.4 % (50-75); Red Blood Cell Count 2.87 X10^6/uL (4.0-5.2); Red Cell Distribution Width 15.5 % (11.6-14.8); White Blood Cell Count 3.8 X10^3/uL (4.5-11.0)
[2019-05-20 05:32] LABS: Alanine Aminotransferase 24 IU/L (9-52); Albumin 2.6 g/dL (3.5-5.0); Albumin Globulin Ratio 0.9 (1.0-2.8); Alkaline Phosphatase 107 U/L (38-126); Aspartate Aminotransferase 51 IU/L (14-36); Bilirubin Total 1.9 mg/dL (0.2-1.3); Blood Urea Nitrogen 8 mg/dL (7-17); Carbon Dioxide 33 mmol/L (22-32); Chloride 90 mmol/L (98-107); Estimated Glomerular Filt Rate > 60.0 mL/min (>60); Globulin 2.8 g/dL (1.7-4.1); Glucose 103 mg/dL (80-110); HEMOLYSIS < 15 (0-50); Magnesium 1.8 mg/dL (1.6-2.3); Potassium 3.2 mmol/L (3.4-5.1); Sodium 127 mmol/L (137-145); Total Protein 5.4 g/dL (6.3-8.2)
[2019-05-20 06:00] LABS: Procalcitonin 0.09 ng/mL (<0.5)
[2019-05-20] MEDS: POTASSIUM CHLORIDE 40 MEQ in SODIUM CHLORIDE 0.9% 500 ML 130 ML IV (08:48)
[2019-05-20] MEDS: LEVOTHYROXINE 100 MCG TABLET 300 MCG PO (08:49)
[2019-05-20] MEDS: SPIRONOLACTONE 50 MG TABLET 100 MG PO (08:49)
[2019-05-20] MEDS: FUROSEMIDE 20 MG TABLET 40 MG PO (08:49)
[2019-05-20] MEDS: POTASSIUM CHLORIDE 20 MEQ TAB PO (08:49)
--- NOTE | 2019-05-20 09:27 | CM.DANOTE ---
DCP/Assessment: Reviewed chart. Patient is a 59yr old female admitted to [facility] with generalized weakness s/p fall. No PCP listed. Primary payor is 1)[facility] Out of [facility]. Met with patient explained CARDIAC MONITOR role. Patient alert and oriented at time of visit. Patient reports that she plans to d/c home when medically stable. Patient resides with her 3yr old adopted/foster son on [address]. Patient indicates that she also has friend/Philip whom resides on her property and can provide assist if needed. PT/OT evaluations ordered. Patient does not anticipate that she will have any issues with ambulation. Patient does have cane and walker at home if needed. Patient has 3 steps to enter residence. Patient initially reports that she does not want to talk about her past/present alcohol use. However, after further discussion patient in agreement. Patient reports that she has been drinking alcohol off/on for the last 35yrs. Patient reports that her last drink was approximately 2 weeks ago. Patient aware of her cirrhosis dx as it relates to her alcoholism. Patient plans to follow up at [facility] as outpatient. Patient prefers to not to go to AA meetings or support groups. Patient reports that she is a very private person and prefers one on one counseling. CARDIAC MONITOR offered resources and patient declined. Patient instructed to call the number on the back of her insurance card to obtain available counselor's in network. Patient agreeable. Patient also reports that her 3yr old adopted/foster son is in [facility] custody during her hospitalization. Patient indicates that she has been fostering child since and hopeful that he will get adopted by family that she knows. P: Pending. CM team to follow closely for d/c planning. Anticipate home. Patient will need priority boarding pass at time of d/c for return to [place]. VLADIMIR Root Discharge Planning/Care Management CM Discharge Assessment Start: 05/20/19 09:23 Freq: Status: Active Protocol: Document 05/20/19 09:23 KJS (Rec: 05/20/19 09:26 KJS [id number]) Discharge Planning Assessment Assigned Gold Burnisher VLADIMIR Root Contact Information Philip Coleman (friend) Advance Directives? No History Provided By Patient Medical Record Prior Living Arrangements House Household Members children friend(s) none Type of transporation used prior to Drives own vehicle admit Independent with ADL's Yes Is patient alert and oriented? Yes Caregiver for Another Yes: Patient has 3yr old son whom she cares for DME Already Rented / Owned Bath Bench FWW / Walker Cane Barriers to Discharge No Discharge Plan Home Transportation Arrangement Patient's friend has her car and can pick her up at time of d/c. Patient will need priority boarding pass to return to [place]. Additional Comment Pending recommendations. Whiteboard Updated in Patient Room with Yes name and ext. # of Gold Burnisher Review Status In Process Next Review Type Continued Stay Review
--- NOTE | 2019-05-20 10:45 | PT.IPTN ---
Current Diagnoses Urinary tract infection, site not specified (05/18/19) Physical Therapy Treatment Note M2 PT-IP Current Condition Start: 05/19/19 10:19 Freq: NEEDED Status: Active Protocol: Document 05/19/19 09:50 DCW (Rec: 05/19/19 10:31 DCW [id number]) Physical Therapy Current Condition Current Condition Evaluation Date 05/19/19 Treatment Diagnosis Weakness, fatigue Onset Date 1 month Weight Bearing Status Weight Bearing Status Full Weight Bearing M3 PT-IP Subjective Start: 05/19/19 10:19 Freq: NEEDED Status: Active Protocol: Document 05/20/19 10:45 GGD (Rec: 05/20/19 11:56 GGD [id number]) Subjective Physical Therapy Visit Type Type Treatment Note Visit Start Time 10:30 Visit Stop Time 10:45 Total Visit Minutes 15 Number of TRANSCRIPTER Visits 1 Physical Therapy Visit Comments Patient Comments Pt states she doing better. M4 PT-IP Mobility and Gait Start: 05/19/19 10:19 Freq: NEEDED Status: Active Protocol: Document 05/20/19 10:45 GGD (Rec: 05/20/19 11:56 GGD [id number]) PT-Transfer Assessment Equipment Transfer Assistive Device Gait Belt Front Wheeled Walker Orthotic/Prosthetic Devices or Brace: No Transfers Transfer Destination Bedside Commode Transfer Ability Level of Assist Standby Assistance Gait Assessment Gait Gait Assistance Required: Standby Assistance Distance (Feet) 130 Assistive Devices Assistive Device Gait Belt Front Wheeled Walker Gait Deviations General Gait Pattern Decreased Stride Length Factors Limiting Gait Function Factors Limiting Gait Function Decreased Activity Tolerance Decreased Strength Poor Balance Comments Gait Comments Pt transfer to [facility] in shower with OT in room. M5 PT-IP Objective Assessments Start: 05/19/19 10:19 Freq: NEEDED Status: Active Protocol: Document 05/19/19 09:50 DCW (Rec: 05/19/19 10:31 DCW [id number]) Orientation Orientation/Cognition Level of Alertness Alert Orientation Name Birthday Date Place Situation Safety Awareness Understands Safety Issues Memory Description No Deficits Noted Gross Range of Motion Upper Extremity ROM Assessment Within Functional Limits Lower Extremity ROM Assessment Within Functional Limits Strength Lower Extremity Strength Hip 4- Knee 4- Ankle 4 M7 PT-IP Assessment and Plan Start: 05/19/19 10:19 Freq: NEEDED Status: Active Protocol: Document 05/20/19 10:45 GGD (Rec: 05/20/19 11:56 GGEric [id number]) PT Summary Assessment and Plan Summary Assessment Summary Pt improving with mobility. She did have c/o light headiness with standing. She was able to progress giat distance with FWW. Frequency of Treatment Frequency Of Treatment Once a Day Treatment Plan Physical Therapy Treatment Plan Gait Training Therapeutic Exercise Recommendations To Nursing Amount of Assist Needed Standby Assistance Discharge Recommendations PT Discharge Recommendations Home with Assistance
--- NOTE | 2019-05-20 12:12 | OT.IP.EVAL ---
Current Diagnoses Urinary tract infection, site not specified (05/18/19) Past Medical History (Last Reviewed 05/18/19 @ 23:14 by DANIELLE Leyva) Cirrhosis of liver (Acute) Abdominal hernia (Chronic) Atrial fibrillation (Chronic) Chronic anticoagulation (Chronic) History of cardioversion (Chronic) Hypothyroid (Chronic) Rosacea (Chronic) Surgical History (Last Reviewed 05/18/19 @ 23:14 by DANIELLE Leyva) Hx of gastric bypass (Chronic) Occupational Therapy Inpatient Evaluation/Re-Eval M1 PT/OT-IP Prior Functional Status Start: 05/19/19 15:03 Freq: NEEDED Status: Active Protocol: Document 05/20/19 11:52 [facility] (Rec: 05/20/19 12:12 [facility] [id number]) Medical Review Prior Functional Status Medical History Reviewed Yes Diet/Fluid Consistency Regular Thin Liquids Communication Independent. Mobility and Gait Using 4WW last ~1 month due to instability/falls, mainly ambulates at household distances. Previously independent at community distances. Activities of Daily Living and IADL's Pt states recently due to weakness not able to do IADl needs and increased time for all ADL needs. Social History Household Members children friend(s) none Living Arrangements House Number of Floors (Floors) One Floor Number of Stairs To Enter/Railing? 3 Steps with right hand rail. Home Environment Walk in Shower Home Equipment Four Wheel Walker Straight Cane Raised Toilet Seat Without Armrests Shower Seat without Backrest Additional Social History Comment Pt has a friend that lives on the property that assist can assist around the house if needed. M2 OT-IP Current Condition Start: 05/19/19 15:03 Freq: Status: Active Protocol: Document 05/20/19 11:52 [facility] (Rec: 05/20/19 12:12 [facility] [id number]) Occupational Therapy Current Condition Current Condition Evaluation Date 05/20/19 Treatment Diagnosis Generalized weakness Diagnosis Onset Date 05/18/19 Weight Bearing Status Weight Bearing Status Weight Bear as Tolerated M3 OT- IP Subjective and Pain Start: 05/19/19 15:03 Freq: Status: Active Protocol: Document 05/20/19 11:52 [facility] (Rec: 05/20/19 12:12 [facility] [id number]) OT- Subjective Occupational Therapy Visit Type Type Initial Evaluation Visit Start Time 10:28 Visit Stop Time 11:28 Total Visit Minutes 60 Occupational Therapy Visit Comments Patient Comments Pt wanting to shower. Patient/Caregiver Goals To go home when medically stable. OT Pain Assessment Pain When Pain Assessed At Rest Pain Present Pain Present Denied Pain M4 OT- IP ADL's Start: 05/19/19 15:03 Freq: Status: Active Protocol: Document 05/20/19 11:52 [facility] (Rec: 05/20/19 12:12 [facility] [id number]) OT ADL-Dressing General Eval Lower Body Dressing Ability Standby Assistance Comments OT Dressing Comments Pt able to lacie/doff socks by crossing her legs over with increased time. OT ADL-Toileting Comments OT Toileting Comments Pt has french in. OT ADL-Bathing Bathing Type Bathing Type Shower General Evaluation Bathing Ability Moderate Assistance Areas Needing Assistance Wash/Dry Back Wash/Dry Lower Extremities Devices Bathing Equipment Hand Held Shower Sprayer Shower Chair with Arms Grab Bars Comments OT Bathing Comments Pt states has a shower stool at home that she uses as needed. Pt needing assist to wash/dry her back to to dry her feet as too tired. M5 OT- IP IADL's Start: 05/19/19 15:03 Freq: Status: Active Protocol: Document 05/20/19 11:52 [facility] (Rec: 05/20/19 12:12 [facility] [id number]) OT-Instrumental Activities of Daily Living Home Safety Awareness Home Safety Comments Pt states prior completely independent with all needs of medications, money management, cooking,driving, etc... to continue to assess for possible needs for safety. M6 OT- IP Functional Cognition Start: 05/19/19 15:03 Freq: Status: Active Protocol: Document 05/20/19 11:52 [facility] (Rec: 05/20/19 12:12 [facility] [id number]) Cognitive Factors Limiting Selfcare Function Cognitive Ability Level of Alertness Alert Patient Orientation Name Place Situation Attention Span Ability Capable of Focused Attention Capable of Sustained Attention Ability to Follow Commands Able to Follow Multi-Step Commands Memory Description No Deficits Noted Cognitive Comments Cognitive Assessment Comments Pt a bit anxious and needing encouragement to try to stand from shower chair. To further assess pt for executive thinking needs. Pt able to follow 1-2 step commands. OT- Vision and Hearing OT- Hearing Assessment OT- Hearing Assessment WFL M7 OT- IP Mobility and Balance Start: 05/19/19 15:03 Freq: Status: Active Protocol: Document 05/20/19 11:52 [facility] (Rec: 05/20/19 12:12 [facility] [id number]) OT- Bed Mobility Assessment Rolling Type of Rolling Roll to Right Level of Assistance Standby Assistance OT-Transfer Assessment Sit to and From Stand Sit to and from Stand Standby Assistance 1 Person Assistance Transfers Transfer Ability Standby Assistance Contact Guard Assistance 1 Person Assistance Technique Transfer Destination Bed Chair Shower Stall Transfer Technique Stand Step Pivot Devices Transfer Assistive Devices Gait Belt Front Wheeled Walker Comments Mobility Comments CGA to close supervision while walking with FWW. Pt states tires easily. OT- Balance Assessment Sitting Balance and Reactions Static Sitting Balance Ability Normal Dynamic Sitting Balance Ability Good Standing Balance and Reactions Static Standing Balance Ability Fair M8 OT- IP Objective Assessments Start: 05/19/19 15:03 Freq: Status: Active Protocol: Document 05/20/19 11:52 [facility] (Rec: 05/20/19 12:12 [facility] [id number]) OT Gross Range of Motion Upper Extremity Range of Motion Assessment Within Functional Limits OT Strength Comments Strength Comments BUE 4/5 to 4-/5 form proximal to distal. OT-Muscle Tone Assessment Muscle Tone WNL Yes M9 OT- IP Assessment and Plan Start: 05/19/19 15:03 Freq: Status: Active Protocol: Document 05/20/19 11:52 [facility] (Rec: 05/20/19 12:12 [facility] [id number]) OT Summary Assessment and Plan Potential Rehabilitation Potential Good Analytic Complexity at Evaluation Low Summary OT Impairments Strength Balance Functional Mobility Dressing Toileting Bathing Toilet Transfers Shower Transfers Progress Towards Goals Slow Progress due to Activity Tolerance Assessment Summary Pt low complexity and main barrier is decreased strength, endurance, and activity tolerance and would benefit from assist at home and possible home health pending pt's progress. Goals Grooming Goal Independent Dressing Goal Independent Toileting Goal Independent Bathing Goal Standby Assistance Toilet Transfer Goal Independent Shower Transfer Goal Independent Patient/Caregiver Education Goal Demonstrate Energy Conservation and Pacing OT-Other Goals Goal for grooming in standing. Pt to be able to come from sit to stand from the recliner x 5 with independence to help with functional mobility. Frequency of Treatment Frequency Of Treatment Once a Day Treatment Plan OT Treatment Plan ADL Training Functional Mobility Patient/Family Education Discharge Planning Other Treatment Recommendations and Next ADL endurance, go over energy Treatment Focus conservation. Discharge Recommendations OT Discharge Recommendations Home with Assistance Home Health Other Discharge Recommendations Pending progress may need home health.
--- NOTE | 2019-05-20 12:28 | PM.CHAP ---
Staff referral. Pt. encouraged by progress but concerned about situation with adopted/foster child at home. Pt. very appreciative of Care Management involvement with her. Thank you! Farrukh García, [facility] [phone]
[2019-05-20 13:54] LABS: Body Fluid Tot Nucleated Cells 145 /uL
[2019-05-20] MEDS: METOPROLOL ER 50 MG TABLET PO (13:54)
[2019-05-20] MEDS: ALBUMIN HUMAN 25 GM/100 ML VIAL IV ×2 (13:54→17:33)
[2019-05-20 13:56] LABS: Body Fluid Red Blood Cells 197 /uL
[2019-05-20 13:57] LABS: Albumin Body Fluid < 1.0 g/dL; Total Protein Body Fluid < 2.0 g/dL
[2019-05-20 14:27] LABS: Body Fluid Appearance SLIGHTLY CLOUDY; Body Fluid Clotted? NO CLOTS PRESENT; Body Fluid Color YELLOW; Eosinophils Body Fluid 0 %; Mononuclear WBC Body Fluid 89 %; Polynuclear WBC Body Fluid 11 %
--- NOTE | 2019-05-20 14:48 | PC.NURSE ---
Day Shift Note Paracentesis performed at bedside, 5L fluid out, samples sent to lab. Pt tolerated well, BP stable. Albumin infused post-paracentesis per MD order. Denies pain. Up 1 person assist with FWW. [place] in place and draining clear yellow urine. Call light within reach, using appropriately to make needs known.
[2019-05-20] MEDS: ONDANSETRON 4 MG/2 ML INJ IV (16:52)
--- NOTE | 2019-05-20 17:27 | PM.PN.1 ---
Subjective Date Patient Seen: 05/20/19 Interval history: Josy Rojas is a 59-year-old female with a past medical history significant for paroxysmal atrial fibrillation on chronic anticoagulation with Eliquis, morbid obesity status post gastric bypass 30 years ago with associated malabsorption, hypothyroidism, DDD of thoracic spine, coronary atherosclerosis, cholelithiasis, and recent diagnosis of alcoholic cirrhosis who presented after ground level fall for generalized weakness. She was found to have severe metabolic derangements specifically hyponatremia and hypokalemia likely related to alcoholic cirrhosis and 3rd spacing with need for paracentesis due to moderate ascites. She is admitted for further management. The patient is lying in bed comfortably. She is mildly somnolent but easily arousable. She reports she feels like something is missing after her paracentesis referring to her abdomen being substantially smaller. She had a total of 5 L removed. Her pressures have been labile and she has received albumin 50 g IV total and small NS 500 mL bolus. She is asymptomatic. She continues to feel substantially better than yesterday. She continues to have generalized weakness likely secondary to muscle wasting from a alcoholic cirrhosis but is doing well with PT/OT. She denies headache, lightheadedness, dizziness, chest pain, shortness of breath, abdominal pain, nausea, vomiting, fever, chills, dysuria, diarrhea or constipation. She is voiding via Brewster catheter. She has not yet had a bowel movement since admission. She is up ambulating with assistance and PT/OT. Exam Vital Signs (past 8 hours): - 05/20/19 12:00 05/20/19 13:45 05/20/19 14:25 Temperature 97.9 F 98.3 F 98.4 F Pulse Rate 88 87 88 Respiratory Rate 16 16 17 Blood Pressure 132/78 122/71 126/60 Pulse Oximetry 97 97 98 05/20/19 16:00 05/20/19 17:00 05/20/19 17:30 Temperature 98.3 F Pulse Rate 76 Respiratory Rate 16 Blood Pressure 91/68 73/45 L 87/45 L Pulse Oximetry 100 Oxygen Delivery Method Room Air Oxygen Flow Rate 0 Narrative Exam Narrative: General: Middle-aged thin female lying in bed and in no acute distress, appears older than stated age, somnolent but arousable and appropriately interactive. HEENT: Normocephalic, atraumatic. External ears without defect. Pupils equal, round, and reactive to light. Temporal wasting. Anicteric sclerae, moist conjunctivae, and no lid lag. Neck: Supple with full range of motion. No lymphadenopathy or thyromegaly. Cardiovascular: Regular rhythm and rate without murmurs, rubs, or gallops appreciated. Pulmonary: Clear to auscultation bilaterally without crackles, wheezes, or rhonchi. Normal respiratory effort with no use of accessory muscles. Abdomen: Soft, nontender, mild distention due to ascites present with tympany and fluid wave, caput medusae, no hematoma from recent paracentesis. Difficult to assess for hepatosplenomegaly or masses due to ascites. Extremities: No clubbing, cyanosis, or edema. Extensive muscle atrophy in upper and lower extremities. Skin: Normal temperature, turgor, and texture; no rash, ulcers, or subcutaneous nodules appreciated. Palmar erythema present. Neurological: Cranial nerves grossly intact. No asterixis. Psychiatric: Mildly anxious with normal affect. Somnolent but arousable. Alert and oriented to person, place, and time. Objective Labs Result Diagrams: 05/21/19 04:59 05/21/19 04:59 Labs: Laboratory Results - last 24 hr 05/20/19 05/20/19 05/20/19 04:40 04:40 04:40 WBC 3.8 L RBC 2.87 L Hgb 9.9 L Hct 28.8 L MCV 100.4 H MCH 34.7 H MCHC 34.6 RDW 15.5 H Plt Count Neut % (Auto) 52.4 Lymph % (Auto) 35.7 [place] % (Auto) 8.8 Eos % (Auto) 1.9 L Baso % (Auto) 1.2 Neut # (Auto) 2000 Lymph # (Auto) 1300 [place] # (Auto) 300 Eos # (Auto) 100 Baso # (Auto) 0 PT 12.3 INR 1.1 Sodium Potassium Chloride Carbon Dioxide BUN Creatinine Estimated GFR BUN/Creatinine Ratio Glucose Calcium Magnesium Total Bilirubin AST ALT Alkaline Phosphatase Total Protein Albumin Globulin Albumin/Globulin Ratio Procalcitonin 0.09 Fluid Color Fluid Appearance Fluid RBC Fld Tot Nucleated Cell Fluid Polynuclear WBCs Fluid Mononuclear WBCs Fluid Eosinophils Fluid Other Cells Body Fluid Clot Fluid Total Protein Fluid Albumin 05/20/19 05/20/19 05/20/19 04:40 13:15 17:44 WBC RBC Hgb Hct MCV MCH MCHC RDW Plt Count Neut % (Auto) Lymph % (Auto) [place] % (Auto) Eos % (Auto) Baso % (Auto) Neut # (Auto) Lymph # (Auto) [place] # (Auto) Eos # (Auto) Baso # (Auto) PT INR Sodium 127 L 126 L Potassium 3.2 L 3.6 Chloride 90 L 87 L Carbon Dioxide 33 H 29 BUN 8 7 Creatinine 0.50 L 0.60 Estimated GFR > 60.0 > 60.0 BUN/Creatinine Ratio 16.0 11.7 Glucose 103 107 Calcium 8.0 L 8.1 L Magnesium 1.8 1.4 L Total Bilirubin 1.9 H AST 51 H ALT 24 Alkaline Phosphatase 107 Total Protein 5.4 L Albumin 2.6 L Globulin 2.8 Albumin/Globulin Ratio 0.9 L Procalcitonin Fluid Color Yellow Fluid Appearance Slightly cloudy Fluid RBC 197 Fld Tot Nucleated Cell 145 Fluid Polynuclear WBCs 11 Fluid Mononuclear WBCs 89 Fluid Eosinophils 0 Fluid Other Cells Not Reportable Body Fluid Clot No clots present Fluid Total Protein < 2.0 Fluid Albumin < 1.0 Assessment & Plan Assessment & Plan narrative: Josy Rojas is a 59-year-old female with a past medical history significant for paroxysmal atrial fibrillation on chronic anticoagulation with Eliquis, morbid obesity status post gastric bypass 30 years ago with associated malabsorption, hypothyroidism, DDD of thoracic spine, coronary atherosclerosis, cholelithiasis, and recent diagnosis of alcoholic cirrhosis who presented after ground level fall for generalized weakness. She was found to have severe metabolic derangements specifically hyponatremia and hypokalemia likely related to alcoholic cirrhosis and 3rd spacing with need for paracentesis due to moderate ascites. She is admitted for further management. 1. Acute on chronic generalized weakness with recurrent GLF and severe protein calorie malnutrition, present on admission. Active. -Patient presented after GLF. Patient endorses headache and confusion likely due to significant hyponatremia from baseline. -Secondary to acute UTI and decompensated alcoholic cirrhosis. Treat underlying pathology. CT brain demonstrated no evidence of acute stroke, hemorrhage, or mass. Age-related volume loss, mild small vessel ischemic change, and tiny old lacunar infarcts. Known to be on chronic anticoagulation with Eliquis . -Patient with severe electrolyte derangement specifically sodium, potassium, and magnesium. Continue to monitor daily and replete as necessary. -Anemia is not major contributor as Hgb close to baseline. No overt signs of bleeding. Continue to monitor closely. -Patient is status post fall with reported muscle ache in neck bilateral shoulders and bilateral hips, down for at least 5 hours. Ordered CK which was below normal at 25 likely due muscle wasting from advancing cirrhosis. -Continue lidocaine patch applied to one affected area daily. Avoid narcotics, APAP and NSAIDs. -History of recurrent falls due to generalized weakness, muscle wasting from alcoholic cirrhosis with debility and deconditioning. Continue PT and OT for evaluation and treatment. 2. Acute decompensation of alcoholic liver cirrhosis, present on admission. Improving. -Patient has several clinical features of alcoholic cirrhosis, pancytopenia, ascites, caput medusae, palmar erythema, vast muscle wasting with generalized weakness. No acute organ failure. No signs of metabolic encephalopathy. Ammonia level normal < 9.0. No history of liver biopsy. Requested records from where she was presumably diagnosed, pending. -Decreased albumin 2.5, INR normal at 1.1, AST 61 and ALT 27, unconjugated bilirubin 3.9, and Plt 154. -Ordered hepatitis panel, pending. -Initial MELD 23, now 11. -Abdominal ultrasound demonstrated increasing moderate ascites and hepatomegaly compared to previous. -Acute decompensation due to abdominal pain with worsening ascites and concern for SBP and severe electrolyte and metabolic derangement. -Received ultrasound guided diagnostic (although may be false negative due to Abx) and therapeutic paracentesis with 5L removed and diagnostic studies pending. Blood pressures are now normal/labile due to paracentesis and fluid shifts. Received albumin 25 g x 2 and will give small fluid bolus with NS 500 mL x 1. -Held Eliquis for paracentesis tomorrow. Patient high risk of bleeding due to liver disease and may want to risk stratify with [id number] and HASBLED before restarting. -Initially met criteria for empiric therapy for SBP and continue ceftriazone 2 g IV daily. -Blood culture x 2 have no growth to date. -Continued spironolactone and furosemide 2:1 but will hold tomorrow/for now as blood pressure is low normal/labile due to paracentesis and fluid shifts. May need to add nadolol in future if SAAG score suggests portal hypertension. -Patient will need to establish herself with GI/hepatology and follow up closely on outpatient basis. This has been discussed in detail on multiple occasions in the past by several providers per records and she has failed to follow up. 3. Acute urinary tract infection, present on admission. Active. -Urinalysis appears grossly infected with urine culture preliminarily growing entercoccus. -Continue ceftriaxone 2 g IV daily as above pending urine culture identification and sensitivities. 4. Acute on chronic hyponatremia, present on admission. Active. -Secondary to alcoholic liver cirrhosis decompensation with decreased osmotic gradient and third spacing/intravascular depletion. Likely contributing to underlying fatigue, headache, and reported confusion. -Continued spironolactone and furosemide 2:1. Hold tomorrow due to labile pressures. -Continue sodium restricted diet 2g daily. -Continue to monitor strict I&O and daily weight. 5. Acute hypokalemia, present on admission. Active. -Initial potassium was 2.6. and received 40 mEq KCL orally in ED. Received potassium chloride 100 mEq IV total thus far. -Continue to monitor potassium closely and replete as needed. 6. Acute hypomagnesmia, present on admission. Active. -Initial magnesium was 1.2. and received magnesium sulfate 2 g IV x 3 total. -Continue to monitor magnesium closely and replete as needed. 7. Acute left hip pain, present on admission. Resolved. -Left hip pain with recent reported fall. -Ordered hip x-ray which did not demonstrate any pathology. Consider CT or MRI if persistent. 8. Paroxysmal atrial fibrillation, chronic, present on admission. Stable. -Continue metoprolol succinate 50 mg twice daily for rate control. Held Eliquis for anticoagulation due to paracentesis tomorrow. May restart in 1-2 after paracentesis. 9. Hypothyroidism, chronic, present on admission. Stable. -TSH normal at 2.61. -Continue levothyroxine 300 mcg daily. 10. Normocytic anemia, chronic condition, present on admission, active / stable -Hgb 10.8 MCV 97.6 MCH 34 MCHC 34.8 RDW 14.7. No overt signs of bleeding. History of alcoholism and prior GI bleed. Denies history of esophageal varices. -Held Eliquis for paracentesis. Patient high risk of bleeding due to liver disease and may want to risk stratify with [id number] and HASBLED before restarting. -Monitor CBC closely. 11. History of alcohol dependence, acute on chronic condition, present on admission. Presume stable. -Denies current use but does admit to recent use 1-2 weeks ago with bottle of wine. however does admit to use of alcohol 2 weeks ago. EtOH level negative. -Monitor for signs and symptoms of alcohol withdrawal but will not start CIWA protocol as patient is far outside withdraw window if patient she truly has abstained that period of time. Disposition: Likely to discharge home in several days once urine culture identification and sensitivities and electrolyte derangement is corrected with close outpatient follow-up and referral.
--- NOTE | 2019-05-20 17:55 | PC.NURSE ---
1755- Patient is hypotensive but remains asymptomatic. Dr. Cortez aware and orders rec. Patient BP will be monitored q30min until stable. Albumin is infusing per order. Abdomen is soft and patient is not tachycardic. Patient c/o nausea but has had no emesis. Medicated per order for nausea. Bowel tones are hyperactive, and patient is passing gas. Will monitor closely.
[2019-05-20 18:19] LABS: BUN Creatinine Ratio 11.7 (6-22); Blood Urea Nitrogen 7 mg/dL (7-17); Calcium 8.1 mg/dL (8.4-10.2); Carbon Dioxide 29 mmol/L (22-32); Chloride 87 mmol/L (98-107); Estimated Glomerular Filt Rate > 60.0 mL/min (>60); Glucose 107 mg/dL (80-110); HEMOLYSIS < 15 (0-50); Magnesium 1.4 mg/dL (1.6-2.3); Potassium 3.6 mmol/L (3.4-5.1); Sodium 126 mmol/L (137-145)
[2019-05-20] MEDS: SODIUM CHLORIDE 0.9% 500 ML 1000 ML IV (18:38)
[2019-05-20] MEDS: MAGNESIUM SULFATE 2 GM/50 ML PIGGYBACK IV (19:24)
[2019-05-21] VITALS (13 sets, daily range): BP systolic 82–130; BP diastolic 40–78; PULSE 73–89; RESP 16–20; TEMP 36.5–37.2; O2SAT 94–100
[2019-05-21 05:32] LABS: Add Manual Diff / Slide Review NO; Basophils Absolute Auto 0 /uL (0-100); Basophils Percent Auto 0.8 % (0-2); Eosinophils Absolute Auto 0 /uL (0-450); Eosinophils Percent Auto 1.4 % (2-4); Hematocrit 26.8 % (36-46); Hemoglobin 9.2 g/dL (12.0-16.0); Lymphocytes Absolute Auto 1100 /uL (1100-4500); Lymphocytes Percent Auto 36.3 % (25-40); Mean Corpuscular HGB Conc 34.2 % (30-36); Mean Corpuscular Hemoglobin 33.9 PG (26-34); Mean Corpuscular Volume 99.3 fL (80-100); Monocytes Absolute Auto 300 /uL (0-900); Monocytes Percent Auto 9.6 % (3-14); Neutrophils Absolute Auto 1500 /uL (1500-7000); Neutrophils Percent Auto 51.9 % (50-75); Platelet Count 127 X10^3/uL (150-400); Red Cell Distribution Width 15.2 % (11.6-14.8)
[2019-05-21 05:37] LABS: Alanine Aminotransferase 31 IU/L (9-52); Albumin 2.5 g/dL (3.5-5.0); Alkaline Phosphatase 175 U/L (38-126); Aspartate Aminotransferase 104 IU/L (14-36); BUN Creatinine Ratio 8.3 (6-22); Blood Urea Nitrogen 5 mg/dL (7-17); Calcium 8.1 mg/dL (8.4-10.2); Carbon Dioxide 31 mmol/L (22-32); Chloride 86 mmol/L (98-107); Estimated Glomerular Filt Rate > 60.0 mL/min (>60); Globulin 2.4 g/dL (1.7-4.1); Glucose 99 mg/dL (80-110); HEMOLYSIS < 15 (0-50); Magnesium 1.8 mg/dL (1.6-2.3); Potassium 3.2 mmol/L (3.4-5.1); Sodium 125 mmol/L (137-145); Total Protein 4.9 g/dL (6.3-8.2)
--- NOTE | 2019-05-21 07:33 | PM.PN.1 ---
Subjective Date Patient Seen: 05/21/19 Time Patient Seen: 07:33 Interval history: She is seen today to follow-up her alcoholic cirrhosis, abdominal ascites, Enterococcus urinary tract infection, weakness, falls, hypokalemia and hypomagnesemia. She is also anemic. She lives on [address] in her own home. She plans to move to [place] and then to [place]. She says she feels better today without the pressure of all the fluid and is actually less short of breath but had not recognized being short of breath when she still had the fluid yesterday. Her urine culture has come back growing enterococcus with sensitivities still pending. She has been on ceftriaxone. Her potassium is low at 3.2 and her magnesium is normal at 1.8. Her catheter will be removed today. She has 3 stairs to climb at home but is doing well with physical therapy despite her extreme cachexia. She appears to have by my estimate another 3-5 L of fluid in her abdomen, still. She has a friend coming from [place] with plans to take her home tomorrow. Exam Vital Signs (past 8 hours): - 05/20/19 23:45 05/21/19 00:30 05/21/19 00:52 Temperature 98.3 F Pulse Rate 74 80 Respiratory Rate 18 18 Blood Pressure 90/46 L 82/54 L Pulse Oximetry 93 95 95 05/21/19 04:53 05/21/19 06:01 05/21/19 07:00 Temperature 97.7 F 98.5 F Pulse Rate 73 74 79 Respiratory Rate 20 16 20 Blood Pressure 95/40 L 92/58 L 93/57 L Pulse Oximetry 97 97 98 Oxygen Delivery Method Room Air Oxygen Flow Rate 0 Narrative Exam Narrative: She is alert and oriented x3. She is engaged and able to discuss her 3-year-old adopted son, and her other issues. She is planning to sell her home. Heart is regular rate and rhythm without murmur Lungs have diminished breath sounds on the left side. Extremities: she has extreme cachexia/muscle wasting of her arm muscles. There is no ankle edema. Abdomen is soft and distended with a 3-5 L ascites estimated size. Objective Labs Result Diagrams: 05/21/19 04:59 05/21/19 04:59 Labs: Laboratory Results - last 24 hr 05/20/19 05/20/19 05/21/19 13:15 17:44 04:59 WBC 3.0 L RBC 2.70 L Hgb 9.2 L Hct 26.8 L MCV 99.3 MCH 33.9 MCHC 34.2 RDW 15.2 H Plt Count 127 L Neut % (Auto) 51.9 Lymph % (Auto) 36.3 [place] % (Auto) 9.6 Eos % (Auto) 1.4 L Baso % (Auto) 0.8 Neut # (Auto) 1500 Lymph # (Auto) 1100 [place] # (Auto) 300 Eos # (Auto) 0 Baso # (Auto) 0 Sodium 126 L Potassium 3.6 Chloride 87 L Carbon Dioxide 29 BUN 7 Creatinine 0.60 Estimated GFR > 60.0 BUN/Creatinine Ratio 11.7 Glucose 107 Calcium 8.1 L Magnesium 1.4 L Total Bilirubin AST ALT Alkaline Phosphatase Total Protein Albumin Globulin Albumin/Globulin Ratio Fluid Color Yellow Fluid Appearance Slightly cloudy Fluid RBC 197 Fld Tot Nucleated Cell 145 Fluid Polynuclear WBCs 11 Fluid Mononuclear WBCs 89 Fluid Eosinophils 0 Fluid Other Cells Not Reportable Body Fluid Clot No clots present Fluid Total Protein < 2.0 Fluid Albumin < 1.0 05/21/19 04:59 WBC RBC Hgb Hct MCV MCH MCHC RDW Plt Count Neut % (Auto) Lymph % (Auto) [place] % (Auto) Eos % (Auto) Baso % (Auto) Neut # (Auto) Lymph # (Auto) [place] # (Auto) Eos # (Auto) Baso # (Auto) Sodium 125 L Potassium 3.2 L Chloride 86 L Carbon Dioxide 31 BUN 5 L Creatinine 0.60 Estimated GFR > 60.0 BUN/Creatinine Ratio 8.3 Glucose 99 Calcium 8.1 L Magnesium 1.8 Total Bilirubin 2.0 H AST 104 H ALT 31 Alkaline Phosphatase 175 H D Total Protein 4.9 L Albumin 2.5 L Globulin 2.4 Albumin/Globulin Ratio 1.0 Fluid Color Fluid Appearance Fluid RBC Fld Tot Nucleated Cell Fluid Polynuclear WBCs Fluid Mononuclear WBCs Fluid Eosinophils Fluid Other Cells Body Fluid Clot Fluid Total Protein Fluid Albumin Assessment & Plan Assessment & Plan narrative: 1. Acute on chronic generalized weakness with recurrent GLF and severe protein calorie malnutrition, present on admission. Active. -Ground level Fall with Ascites, UTI and Hyponatremia -Secondary to acute UTI and decompensated alcoholic cirrhosis. Treat underlying pathology. -CT brain negative -No overt signs of bleeding. -History of recurrent falls due to generalized weakness, muscle wasting from alcoholic cirrhosis with debility and deconditioning. PT following. 2. Acute decompensation of alcoholic liver cirrhosis, present on admission. Improving. -Patient has several clinical features of alcoholic cirrhosis, pancytopenia, ascites, caput medusae, palmar erythema, vast muscle wasting with generalized weakness. No acute organ failure. No signs of metabolic encephalopathy. Ammonia level normal < 9.0. No history of liver biopsy. Requested records from where she was presumably diagnosed, pending. -Decreased albumin 2.5, INR normal at 1.1, AST 61 and ALT 27, unconjugated bilirubin 3.9, and Plt 154. -Initial MELD 23, now 11. -5 liters paracentesis yesterday with ongoing distension evidence of another estimated 3+ Liters remaining -Continue spironolactone and furosemide 2:1. May need to add nadolol -Patient will need to establish herself with GI/hepatology and follow up closely on outpatient basis. This has been discussed in detail on multiple occasions in the past by several providers per records and she has failed to follow up. -in practical terms a prn q1-2 week paracentesis outpatient schedule or a Pleurx catheter may be the most helpful. 3. Acute urinary tract infection, present on admission. Active. -Enterococcus on UC with sensitivities pending. Change from Rocephin to Ampicillin. Unless VRE is identified today she will be changed to PO Amoxicillin at discharge tomorrow. 4. Acute on chronic hyponatremia, present on admission. Active. -Secondary to alcoholic liver cirrhosis decompensation with decreased osmotic gradient and third spacing/intravascular depletion. Likely contributing to underlying fatigue, headache, and reported confusion. -Continue spironolactone and furosemide 2:1. -Continue sodium restricted diet 2g daily. -Continue to monitor strict I&O and daily weight. 5. Acute hypokalemia, present on admission. Active. -Initial potassium was 2.6. and received 40 mEq KCL orally in ED. Received potassium chloride 60 mEq IV total thus far. -K 3.2 today so will give 60 meq Kcl PO today and repeat tomorrow. 6. Acute hypomagnesmia, present on admission. Active. -Initial magnesium was 1.2. and received magnesium sulfate 2 g IV x 2 total. -1.8 today, repeat tomorrow 7. Acute left hip pain, present on admission. Resolved. -Left hip pain with recent reported fall. -Xray negative. 8. Paroxysmal atrial fibrillation, chronic, present on admission. Stable. -Continue metoprolol succinate 50 mg twice daily for rate control. Restart Eliquis. 9. Hypothyroidism, chronic, present on admission. Stable. -TSH 2.61. -Continue levothyroxine 300 mcg daily. 10. Normocytic anemia, chronic condition, present on admission, active / stable -Hgb 10.8 No overt signs of bleeding. History of alcoholism and prior GI bleed. Denies history of esophageal varices. -Hgb 9.2 today, recheck tomorrow 11. History of alcohol dependence Disposition: Home to [place] tomorrow with HH RN to follow. Will likely need Q1-2 week outpatient paracentesis arranged.
[2019-05-21] MEDS: FUROSEMIDE 20 MG TABLET 40 MG PO (08:10)
[2019-05-21] MEDS: POTASSIUM CHLORIDE 20 MEQ TAB PO (08:10)
[2019-05-21] MEDS: POTASSIUM CHLORIDE 20 MEQ TAB 40 MEQ PO (08:10)
[2019-05-21] MEDS: LEVOTHYROXINE 100 MCG TABLET 300 MCG PO (08:11)
[2019-05-21] MEDS: SPIRONOLACTONE 50 MG TABLET 100 MG PO (08:11)
[2019-05-21] MEDS: AMPICILLIN 500 MG in SODIUM CHLORIDE 0.9% 100 ML 200 ML IV ×3 (08:16→20:12)
--- NOTE | 2019-05-21 11:45 | PT.IPTN ---
Current Diagnoses Urinary tract infection, site not specified (05/18/19) Physical Therapy Treatment Note M2 PT-IP Current Condition Start: 05/19/19 10:19 Freq: NEEDED Status: Active Protocol: Document 05/19/19 09:50 DCW (Rec: 05/19/19 10:31 DCW [id number]) Physical Therapy Current Condition Current Condition Evaluation Date 05/19/19 Treatment Diagnosis Weakness, fatigue Onset Date 1 month Weight Bearing Status Weight Bearing Status Full Weight Bearing M3 PT-IP Subjective Start: 05/19/19 10:19 Freq: NEEDED Status: Active Protocol: Document 05/21/19 11:45 GGD (Rec: 05/21/19 13:44 GGD [email or web address]) Subjective Physical Therapy Visit Type Type Treatment Note Visit Start Time 11:30 Visit Stop Time 11:45 Total Visit Minutes 15 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 M4 PT-IP Mobility and Gait Start: 05/19/19 10:19 Freq: NEEDED Status: Active Protocol: Document 05/21/19 11:45 GGD (Rec: 05/21/19 13:44 GGD [id number]) PT-Bed Mobility Assessment Rolling Type of Rolling Roll to Left Level of Assist Independent Supine to Sit Supine to Sit Independent Scooting Scooting to Edge of Bed Independent PT-Transfer Assessment Sit to and From Stand Sit to and from Stand Standby Assistance Equipment Transfer Assistive Device Gait Belt Front Wheeled Walker Orthotic/Prosthetic Devices or Brace: No Transfers Transfer Destination Chair Transfer Ability Level of Assist Standby Assistance Gait Assessment Gait Gait Assistance Required: Standby Assistance Distance (Feet) 160 Assistive Devices Assistive Device Gait Belt Front Wheeled Walker Gait Deviations General Gait Pattern Decreased Stride Length Factors Limiting Gait Function Factors Limiting Gait Function Decreased Activity Tolerance Decreased Strength Poor Balance M5 PT-IP Objective Assessments Start: 05/19/19 10:19 Freq: NEEDED Status: Active Protocol: Document 05/19/19 09:50 DCW (Rec: 05/19/19 10:31 DCW [id number]) Orientation Orientation/Cognition Level of Alertness Alert Orientation Name Birthday Date Place Situation Safety Awareness Understands Safety Issues Memory Description No Deficits Noted Gross Range of Motion Upper Extremity ROM Assessment Within Functional Limits Lower Extremity ROM Assessment Within Functional Limits Strength Lower Extremity Strength Hip 4- Knee 4- Ankle 4 M7 PT-IP Assessment and Plan Start: 05/19/19 10:19 Freq: NEEDED Status: Active Protocol: Document 05/21/19 11:45 GGD (Rec: 05/21/19 13:44 GGD [id number]) PT Summary Assessment and Plan Summary Assessment Summary Pt able to progress gait distance. She has minimal use of UE on FWW. She had no LOB or unsteadiness with mobility. Stair training needed before D/C. Frequency of Treatment Frequency Of Treatment Once a Day Treatment Plan Physical Therapy Treatment Plan Gait Training Therapeutic Exercise Other Recommendations and Next Treatment stair training. Focus Recommendations To Nursing Amount of Assist Needed Standby Assistance Discharge Recommendations PT Discharge Recommendations Home with Assistance
[2019-05-21 12:42] LABS: Hepatitis A Antibody IgM NONREACTIVE (NONREACTIVE); Hepatitis Acute Panel Interp 0.02; Hepatitis B Core Antibody IgM NONREACTIVE (NONREACTIVE); Hepatitis B Surface Antigen NONREACTIVE (NONREACTIVE); Hepatitis C Antibody NONREACTIVE
--- NOTE | 2019-05-21 14:40 | OT.IP.TRT ---
Current Diagnoses Urinary tract infection, site not specified (05/18/19) Occupational Therapy Treatment Note M2 OT-IP Current Condition Start: 05/19/19 15:03 Freq: Status: Active Protocol: Document 05/20/19 11:52 [facility] (Rec: 05/20/19 12:12 [facility] [id number]) Occupational Therapy Current Condition Current Condition Evaluation Date 05/20/19 Treatment Diagnosis Generalized weakness Diagnosis Onset Date 05/18/19 Weight Bearing Status Weight Bearing Status Weight Bear as Tolerated M3 OT- IP Subjective and Pain Start: 05/19/19 15:03 Freq: Status: Active Protocol: Document 05/21/19 14:40 [facility] (Rec: 05/21/19 15:25 [facility] [id number]) OT- Subjective Occupational Therapy Visit Type Type Treatment Note Visit Start Time 13:55 Visit Stop Time 14:40 Total Visit Minutes 45 Notes Pt awake and alert in bed; agreeable to tx. Occupational Therapy Visit Comments Patient Comments I am going home tomorrow. 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 OT Pain Assessment Pain When Pain Assessed After Treatment Pain Present Pain Present Denied Pain M4 OT- IP ADL's Start: 05/19/19 15:03 Freq: Status: Active Protocol: Document 05/21/19 14:40 [facility] (Rec: 05/21/19 15:25 [facility] [id number]) OT AVN-Urtg-Znbdzcy General Evaluation Self-Feeding Ability Independent OT ADL-Grooming General Evaluation Grooming Ability Standby Assistance Comments OT Grooming Comments standing at sink with FWW to wash hands OT ADL-Dressing General Eval Lower Body Dressing Ability Independent Areas Needing Assistance Socks Comments OT Dressing Comments pt declined to wear brief OT ADL-Toileting General Evaluation Toileting Ability Independent Areas Needing Assistance Perform Perineal Hygiene Devices Toileting Assistive Devices Raised Toilet Seat M6 OT- IP Functional Cognition Start: 05/19/19 15:03 Freq: Status: Active Protocol: Document 05/21/19 14:40 [facility] (Rec: 05/21/19 15:25 [facility] [email or web address]) Cognitive Factors Limiting Selfcare Function Cognitive Ability Level of Alertness Alert Patient Orientation Name Age Birthday Month Date Year Day of Week Place Situation Attention Span Ability Capable of Focused Attention Capable of Sustained Attention Ability to Follow Commands Able to Follow Multi-Step Commands Cognitive Tests SLUMS Pt scored 27/30 which is WNL. Pt had minor difficulty with short term memory tasks. M7 OT- IP Mobility and Balance Start: 05/19/19 15:03 Freq: Status: Active Protocol: Document 05/21/19 14:40 [facility] (Rec: 05/21/19 15:25 [facility] [id number]) OT- Bed Mobility Assessment Supine to Sit Supine to Sit Assist Independent Head of Bed Elevated Sit to Supine Sit to Supine Assist Independent Head of Bed Elevated Scooting Scooting to Edge of Bed Independent OT-Transfer Assessment Sit to and From Stand Sit to and from Stand Standby Assistance Devices Transfer Assistive Devices Gait Belt Front Wheeled Walker Comments Mobility Comments Pt states she sleeps in recliner at home. OT- Gait Assessment Gait Gait Assistance Required: Standby Assistance Distance (Feet) 120 Assistive Devices Assistive Device Gait Belt Front Wheeled Walker Comments Gait Ability Comments no loss of balance noted, turns well; pt states she plans to use 4WW with seat at home OT- Balance Assessment Sitting Balance and Reactions Static Sitting Balance Ability Good Dynamic Sitting Balance Ability Good Standing Balance and Reactions Static Standing Balance Ability Good Dynamic Standing Balance Ability Good Comments Other Balance Tests/Deviations/Treatment during toileting and standing at sink for grooming M9 OT- IP Assessment and Plan Start: 05/19/19 15:03 Freq: Status: Active Protocol: Document 05/21/19 14:40 [facility] (Rec: 05/21/19 15:25 [facility] [id number]) OT Summary Assessment and Plan Potential Rehabilitation Potential Good Summary Progress Towards Goals Progressing Toward Goals Assessment Summary Pt presents with increased activity tolerance today. She is SBA to independent with basic self care in hospital room setting. Pt verbalizes understanding of energy conservation/pacing. Pt scores WNL on cognitive screening test. Pt has necessary bathroom safety equipt at home. Pt plans to discharge home tomorrow if medically stable and clears P.T. Pt states her friend who lives on property can assist her with shopping, cleaning, driving and IADLs as needed. Pt states her adopted 3 yr old son will remain in foster care with pt visiting him 3x week. Goals Grooming Goal Independent Dressing Goal Independent Toileting Goal Independent Bathing Goal Standby Assistance Toilet Transfer Goal Independent Shower Transfer Goal Independent Patient/Caregiver Education Goal Demonstrate Energy Conservation and Pacing OT-Other Goals Goal for grooming in standing. Pt to be able to come from sit to stand from the recliner x 5 with independence to help with functional mobility. Days to Meet Goals 1 Frequency of Treatment Frequency Of Treatment Once a Day Treatment Plan OT Treatment Plan ADL Training Functional Mobility Patient/Family Education Discharge Planning Discharge Recommendations OT Discharge Recommendations Home with Assistance Home Health
--- NOTE | 2019-05-21 16:55 | DIET.PN ---
Dietary Progress Note Assessment: RD f/u for 59y F c severe chronic PCM Pt reports appetite better after fluid removed from belly, however considerable fluid remains per bloated appearance. Pt drank 100% Ensure Max providing 30g PRO, reports eating 1/2 bowl rice crispies, banana, piece multigrain toast for breakfast. Diet: General HT: 172.72cm WT: 74.2kg BMI: 24.9 MNA: 7 (malnourished) Rudy: 16 Nutrition Diagnosis: Ongoing Severe chronic illness PCM related to alteration in GI tract structure as evidence by energy intake <75% EER > 1mo, weight loss > 7.5% in 3 mo, NFPE severe tricep/bicep and thoracic subcutaneous fat loss w/ severe clavicle and deltoid muscle loss. Interventions: recc ONS Ensure Max bid providing 60g pro (75% needs). Educated pt on importance of MVI daily and high PRO diet re: post-bariatric. Gave handout for Post-bariatric supps and PRO ONS to purchase once d/c Monitoring/Evaluations: Diet Progression/tolerance, PO intake, weight.
[2019-05-21] MEDS: APIXABAN 5 MG TABLET PO (20:14)
[2019-05-21] MEDS: DOCUSATE 100 MG CAPSULE PO (20:14)
--- NOTE | 2019-05-21 20:32 | PC.NURSE ---
1999 - Pt has been resting in bed this shift. Offered mobility, reposition and ambulation to bathroom. Pt has repeatedly declined. Educated to skin integrity, safety, and possible urinary retention with french d/c'd. Pt verbalized understanding but continues to decline intervention at this time. Discussed lack of BM, pt states that she has passed a lot of flatus. Denies hx of constipation. Pt denies pain or discomfort. Remains hypotensive, and asymptomatic with such. Metoprolol held. Abx infusing. Call light in reach. Bed alarm on.
[2019-05-22] VITALS (7 sets, daily range): BP systolic 101–120; BP diastolic 52–74; PULSE 85–93; RESP 16–18; TEMP 37–37.2; O2SAT 93–99
[2019-05-22] MEDS: AMPICILLIN 500 MG in SODIUM CHLORIDE 0.9% 100 ML 200 ML IV ×2 (01:25→09:57)
[2019-05-22 05:34] LABS: Add Manual Diff / Slide Review NO; Basophils Absolute Auto 0 /uL (0-100); Basophils Percent Auto 0.8 % (0-2); Eosinophils Absolute Auto 0 /uL (0-450); Eosinophils Percent Auto 1.2 % (2-4); Hematocrit 28.4 % (36-46); Hemoglobin 9.8 g/dL (12.0-16.0); Lymphocytes Absolute Auto 1000 /uL (1100-4500); Lymphocytes Percent Auto 34.3 % (25-40); Mean Corpuscular HGB Conc 34.5 % (30-36); Mean Corpuscular Hemoglobin 34.3 PG (26-34); Mean Corpuscular Volume 99.4 fL (80-100); Monocytes Absolute Auto 400 /uL (0-900); Monocytes Percent Auto 12.5 % (3-14); Neutrophils Absolute Auto 1500 /uL (1500-7000); Neutrophils Percent Auto 51.2 % (50-75); Platelet Count 111 X10^3/uL (150-400); Red Blood Cell Count 2.85 X10^6/uL (4.0-5.2); Red Cell Distribution Width 15.3 % (11.6-14.8); White Blood Cell Count 2.9 X10^3/uL (4.5-11.0)
[2019-05-22 05:42] LABS: Magnesium 1.3 mg/dL (1.6-2.3)
[2019-05-22 05:43] LABS: Alanine Aminotransferase 25 IU/L (9-52); Albumin 2.4 g/dL (3.5-5.0); Albumin Globulin Ratio 0.9 (1.0-2.8); Alkaline Phosphatase 154 U/L (38-126); Aspartate Aminotransferase 59 IU/L (14-36); Bilirubin Total 1.6 mg/dL (0.2-1.3); Blood Urea Nitrogen 8 mg/dL (7-17); Calcium 8.2 mg/dL (8.4-10.2); Carbon Dioxide 30 mmol/L (22-32); Chloride 91 mmol/L (98-107); Estimated Glomerular Filt Rate > 60.0 mL/min (>60); Globulin 2.7 g/dL (1.7-4.1); Glucose 108 mg/dL (80-110); HEMOLYSIS < 15 (0-50); Potassium 3.7 mmol/L (3.4-5.1); Sodium 125 mmol/L (137-145); Total Protein 5.1 g/dL (6.3-8.2)
[2019-05-22] MEDS: MAGNESIUM SULFATE 2 GM/50 ML PIGGYBACK IV (07:46)
[2019-05-22] MEDS: METOPROLOL ER 50 MG TABLET PO (07:53)
[2019-05-22] MEDS: POTASSIUM CHLORIDE 20 MEQ TAB PO (07:53)
[2019-05-22] MEDS: DOCUSATE 100 MG CAPSULE PO (07:54)
[2019-05-22] MEDS: LEVOTHYROXINE 100 MCG TABLET 300 MCG PO (07:54)
[2019-05-22] MEDS: APIXABAN 5 MG TABLET PO (07:54)
[2019-05-22] MEDS: POLYETHYLENE GLYCOL 3350 17 GM POWD.PACK PO (07:55)
[2019-05-22] MEDS: SPIRONOLACTONE 50 MG TABLET 100 MG PO (07:55)
[2019-05-22] MEDS: FUROSEMIDE 40 MG TABLET PO (07:55)
--- NOTE | 2019-05-22 09:13 | OT.IP.TRT ---
Current Diagnoses Urinary tract infection, site not specified (05/18/19) Occupational Therapy Treatment Note M2 OT-IP Current Condition Start: 05/19/19 15:03 Freq: Status: Active Protocol: Document 05/20/19 11:52 [facility] (Rec: 05/20/19 12:12 [facility] [email or web address]) Occupational Therapy Current Condition Current Condition Evaluation Date 05/20/19 Treatment Diagnosis Generalized weakness Diagnosis Onset Date 05/18/19 Weight Bearing Status Weight Bearing Status Weight Bear as Tolerated M3 OT- IP Subjective and Pain Start: 05/19/19 15:03 Freq: Status: Active Protocol: Document 05/22/19 09:11 [facility] (Rec: 05/22/19 09:13 [facility] [email or web address]) OT- Subjective Occupational Therapy Visit Type Type Treatment Note Visit Start Time 09:00 Visit Stop Time 09:03 Total Visit Minutes 3 Notes No charge, finalized all OT needs, pt has no further questions for OT needs.
[2019-05-22] MEDS: ONDANSETRON 4 MG/2 ML INJ IV (10:41)
[2019-05-22] MEDS: LACTULOSE 20 GM/30 ML SOLUTION PO (11:23)
--- NOTE | 2019-05-22 13:44 | PM.DS.1 ---
History of Present Illness Chief complaint: weakness / falls/ on Eliquis Discharge Providers Date of admission: 05/18/19 17:31 Discharge Date: 05/22/19 Consults: 05/18/19 18:23 Consult to Dietitian, Adult Routine Comment: Reason For Exam: assessed at high risk Consult to Pastoral Services Routine Comment: yazidi 05/18/19 23:36 Consult to Orchestra Teacher Routine Comment: lives alone 05/19/19 00:43 Consult to Discharge Planning Routine Comment: Consult to Occupational Therapy Evaluate & Treat Comment: Physician Instructions: Evaluate and treat Consult to Physical Therapy Evaluate & Treat Comment: Physician Instructions: Evaluate and Treat Discharge provider: Romulo Lozano MD Summary Discharge Diagnosis: One. Acute decompensation of alcoholic liver cirrhosis 2. Hypotension secondary to paracentesis 3. Acute hypokalemia severe 4. Hyponatremia acute on chronic 5. Hypomagnesemia severe 6. Urinary tract infection secondary to Enterococcus 7. Paroxysmal AFib on chronic anticoagulation 8. Hypothyroidism 9. Chronic normocytic anemia 10. History of alcohol dependence and abuse Hospital Course: Patient initially presented with symptoms of weakness and ground level falls at home she was found to have worsening ascites decompensated chronic liver failure from his alcoholism and urinary tract infection along with multiple electrolyte abnormalities. The patient was placed on antibiotics for the urinary infection changed to ampicillin once the bacteria was identified as Enterococcus. She did undergo a paracentesis about 5 L were removed patient had significant hypotension with the systolic pressure in the 70s and 80s after the paracentesis that persisted for 24 hours and was treated with IV infusions of albumin and IV fluids. She had severe electrolyte abnormalities including sodium of 124 potassium 2.6 and magnesium 1.6 on admission these were all treated with replacement therapy of potassium chloride and magnesium IV. These have all improved she does have chronic hyponatremia her baseline is about 128. The patient is on chronic anticoagulation for chronic AFib. This was held to during the 1st few days of the hospitalization due to the paracentesis. She is now back on the anticoagulation and this will be followed carefully with her chronic liver failure. She was given oral potassium on discharge she is on spironolactone and on lisinopril and on Lasix and her potassium was extremely low when she came in so we felt that she needed oral potassium replacement this but this needs to be watched carefully also. The patient is planning to move to telling him to be closer to family on Saturday so she will establish with a primary care physician there. She probably would benefit from home health but that needs to be ordered by her new primary care physician and also referral to a GI specialist would be helpful for this patient. Patient is committed to not drink alcohol again. Patient might need ongoing paracentesis every few weeks this will need to be determined by her new primary care provider Status at Discharge Cognitive/behavioral status at discharge: at baseline, oriented Functional status at discharge: independent ambulation Overall status at discharge: patient is back to baseline Time Spent with Patient Greater than 30 minutes Exam Vital Signs (past 8 hours): - 05/22/19 07:50 05/22/19 07:53 05/22/19 08:17 Temperature 98.7 F Pulse Rate 93 H 90 Respiratory Rate 16 Blood Pressure 120/61 120/61 Pulse Oximetry 97 98 05/22/19 13:00 Temperature 98.9 F Pulse Rate 85 Respiratory Rate 16 Blood Pressure 101/74 Pulse Oximetry 93 Oxygen Delivery Method Room Air Oxygen Flow Rate 0 Narrative Exam Narrative: Patient appears to be chronically ill she is awake and responsive and answers questions appropriately Lungs are clear Heart irregular Abdomen is distended ascites is still present soft nontender no masses Lower extremities trace edema Objective Labs Result Diagrams: 05/22/19 05:04 05/22/19 05:04 Labs: Laboratory Results - last 24 hr 05/22/19 05/22/19 05/22/19 05:04 05:04 05:04 WBC 2.9 L RBC 2.85 L Hgb 9.8 L Hct 28.4 L MCV 99.4 MCH 34.3 H MCHC 34.5 RDW 15.3 H Plt Count 111 L Neut % (Auto) 51.2 Lymph % (Auto) 34.3 [place] % (Auto) 12.5 Eos % (Auto) 1.2 L Baso % (Auto) 0.8 Neut # (Auto) 1500 Lymph # (Auto) 1000 L [place] # (Auto) 400 Eos # (Auto) 0 Baso # (Auto) 0 Sodium 125 L Potassium 3.7 Chloride 91 L Carbon Dioxide 30 BUN 8 Creatinine 0.50 L Estimated GFR > 60.0 BUN/Creatinine Ratio 16.0 Glucose 108 Calcium 8.2 L Magnesium 1.3 L Total Bilirubin 1.6 H AST 59 H ALT 25 Alkaline Phosphatase 154 H Total Protein 5.1 L Albumin 2.4 L Globulin 2.7 Albumin/Globulin Ratio 0.9 L Discharge Plan Discharge Plan Patient Disposition: Home Discharge comment: Home Health to be set up by her new Primary care provider. Discharge Med Rec/Prescriptions Prescriptions: New potassium chloride [Klor-Con M20] 20 mEq Tablet,Er Particles/Crystals 20 meq PO DAILYCC Qty: 30 RF: 1 amoxicillin 250 mg capsule 250 mg PO TID Qty: 21 RF: 0 lactulose 10 gram/15 mL solution 10 gram PO DAILY PRN (Reason: constipation) Qty: 473 RF: 0 Continued metoprolol succinate 25 mg tablet extended release 24 hr 50 mg PO BID RF: 0 levothyroxine 300 mcg Tablet 300 mcg PO DAILY RF: 0 pantoprazole 40 mg Tablet,Delayed Release (Dr/Ec) 40 mg PO DAILY PRN (Reason: Acid Reflux) RF: 0 albuterol sulfate [ProAir HFA] 90 mcg/actuation Hfa Aerosol Inhaler 2 puff Inhalation Q4H PRN (Reason: Shortness Of Breath) RF: 0 spironolactone 50 mg Tablet 100 mg PO DAILY RF: 0 furosemide [Lasix] 20 mg tablet 40 mg PO DAILY Qty: 90 RF: 0 lisinopril 2.5 mg tablet 2.5 mg PO DAILY RF: 0 apixaban 5 mg tablet 5 mg PO BID RF: 0 Provider Discharge Instructions Diet comment: low sodium Activity: as tolerated Visit Report/Discharge Packet Instructions: DI for Ascites, DI for Cirrhosis Discharge Data Attending Provider: Lorena Cortez Admit Date/Time: 05/18/19 17:31
--- NOTE | 2019-05-22 15:00 | CM.DPNOTE ---
DC Note: Reviewed chart and spoke w/ pt about DCP ? Pt explains she will not be returning to [facility], she will be going up to [place] to be nearer to her family. She plans on staying in a hotel until she can secure housing and will be working on establishing w/a new PCP. Explained to pt that nursing was initially recommended for her DC but since she doesn't currently have a PCP or address, her new PCP in [place] will need to address this. Pt agrees. Pt denies further need for resources. Relayed above to Dr Lozano in multidisciplinary rounds. P: DC home w/support from family, moving up to the [place] area, hopefully can establish w/outpt medical and treatment services in [facility] soon. VLADIMIR Horn
--- NOTE | 2019-05-22 15:08 | PC.NURSE ---
Addendum entered by Pio Helton R.N. 05/22/19 15:14: Rx called in to [facility] in [place]. Pt aware. Original Note: D/C teaching done with pt. Pt states she is currently looking for PCP in [place] and plans to make some phone calls on Saturday when she is there. Encouraged pt to establish care and seek out a GI/turbine measurements engineer. Pt verbalizes understanding. Reviewed new rx. Reviewed medications, purpose, timing, next dose due. Pt verbalizes understanding. PIV and tele removed. Pt is [place] to stay at [place] and go back to [place] tomorrow. She is planning to call a cab to bring her to the hotel.
--- NOTE | 2019-05-22 15:23 | PT.IPTN ---
Current Diagnoses Urinary tract infection, site not specified (05/18/19) Physical Therapy Treatment Note M2 PT-IP Current Condition Start: 05/19/19 10:19 Freq: NEEDED Status: Active Protocol: Document 05/19/19 09:50 [facility] (Rec: 05/19/19 10:31 [facility] [id number]) Physical Therapy Current Condition Current Condition Evaluation Date 05/19/19 Treatment Diagnosis Weakness, fatigue Onset Date 1 month Weight Bearing Status Weight Bearing Status Full Weight Bearing M3 PT-IP Subjective Start: 05/19/19 10:19 Freq: NEEDED Status: Active Protocol: Document 05/22/19 15:23 [facility] (Rec: 05/22/19 15:23 [facility] [id number]) Subjective Physical Therapy Visit Type Type Patient Refusal Notes PT refused states she feels ready for D/C and has no needs
--- NOTE | 2019-05-22 16:39 | PC.NURSE ---
1635- Patient made arrangements to stay at a hotel in [place]. Patient verbalizes understanding of discharge instruction and had all questions answered. Patient alert and oriented stable at the time of discharge to waiting taxi.
== END 2019-05-22 16:47 | disposition home or self-care (01) | DRG 689 ==
LOC: ED 16:58 → AC 17:32 → ICU 05-19 08:59
PROVIDERS: Family Medicine; Nurse Practitioner Gerontology; Admitting Provider Internal Medicine; Emergency Provider Emergency Medicine; Visit Provider Internal Medicine
DX: N39.0 Urinary tract infection, site not specified (principal); E43 Unspecified severe protein-calorie malnutrition; E87.1 Hypo-osmolality and hyponatremia; K91.2 Postsurgical malabsorption, not elsewhere classified; Z68.1 Body mass index [BMI] 19.9 or less, adult; R53.1 Weakness; E87.6 Hypokalemia; E80.6 Other disorders of bilirubin metabolism; K70.31 Alcoholic cirrhosis of liver with ascites; F10.20 Alcohol dependence, uncomplicated; M25.552 Pain in left hip; I48.0 Paroxysmal atrial fibrillation; Z79.01 Long term (current) use of anticoagulants; W18.30XA Fall on same level, unspecified, initial encounter; E03.9 Hypothyroidism, unspecified
CPT/HCPCS: 36415; 49083; 70450; 73501; 76700; 80048; 80053; 80074; 80076; 80320; 80329; 81001; 82042; 82140; 82550; 82962; 83605; 83615; 83690; 83735; 83880; 84145; 84157; 84443; 85025; 85610; 85730; 87040; 87070; 87075; 87077; 87086; 87186; 87205; 87797; 89051; 93005; 94762; 96365; 96366; 97116; 97127; 97161; 97165; 97530; 97535; 99283; 99285; G0480; J0290; J0696; J2405; J3480; P9041